=== PATIENT | male | born 2000 | race Caucasian/White ===

== ENCOUNTER 2018-02-01 11:25 | Emergency (ER) | payer OTHER ==
[~2018-02-01] VITALS: Ht 185.4 cm; Wt 140.0 kg
[2018-02-01 12:12] LABS: GLUCOSE,POINT OF CARE 136 MG/DL (70-110)
[2018-02-01 12:51] VITALS: BP 127/63
== END 2018-02-01 13:30 | disposition home or self-care (01) ==
LOC: EMS 11:26
DX: G43.909 Migraine, unspecified, not intractable, without status migrainosus (principal); F41.9 Anxiety disorder, unspecified; F12.90 Cannabis use, unspecified, uncomplicated; R73.9 Hyperglycemia, unspecified
CPT/HCPCS: 82962; 99283

== ENCOUNTER 2018-09-16 18:18 | Emergency (ER) | payer OTHER ==
[~2018-09-16] VITALS: Ht 185.4 cm; Wt 149.6 kg
[2018-09-16] MEDS ORDERED: DIAZEPAM 5 MG TABLET PO ONE (20:45)
[2018-09-16] MEDS ORDERED: KETOROLAC TROMETHAMINE 30 MG/ML VIAL IM ONE (20:45)
[2018-09-16 22:51] VITALS: BP 139/87
== END 2018-09-16 22:54 | disposition home or self-care (01) ==
LOC: EMS 18:19
DX: R25.2 Cramp and spasm (principal)
CPT/HCPCS: 73552; 96372; 99283; J1885

== ENCOUNTER 2019-04-08 19:47 | Inpatient (IN) | payer MEDICAID, OTHER ==
[~2019-04-08] VITALS: Ht 182.9 cm; Wt 129.8 kg
[2019-04-08 20:54] LABS: GLUCOSE,POINT OF CARE 116 MG/DL (70-110)
[2019-04-08] MEDS ORDERED: ACETAMINOPHEN 325 MG TABLET PO ONE (22:15)
[2019-04-08] MEDS ORDERED: SODIUM CHLORIDE 0.9% 1,000 ML IV ONE (22:15)
[2019-04-08 22:23] LABS: HEMATOCRIT 44.2 % (41-53); HEMOGLOBIN 14.9 g/dL (13.5-17.5); MEAN CORPUSCULAR HGB CONC 33.8 G/dL (31.0-37.0); MEAN CORPUSCULAR VOLUME 92 fL (80-100); PLATELET COUNT (AUTO) 437 K/uL (150-450); RED BLOOD CELL COUNT(AUTO) 4.81 MIL/uL (4.50-5.90); RED CELL DISTRIBUTION WIDTH 13.8 % (11.5-14.5)
[2019-04-08] MEDS ORDERED: IOVERSOL 350 MG/ML 100 ML VIAL ONE (22:23)
[2019-04-08] MEDS ORDERED: SODIUM CHLORIDE 0.9% 100 ML ONE (22:24)
[2019-04-08] MEDS ORDERED: IOVERSOL 350 MG/ML 150 ML VIAL ONE (22:24)
[2019-04-08 22:25] LABS: APPEARANCE,URINE CLOUDY (CLEAR); GLUCOSE, URINE (UA) NEGATIVE (NEGATIVE); KETONES,URINE 40 mg/dL (NEGATIVE); LEUKOCYTE ESTERASE ,URINE NEGATIVE (NEGATIVE); NITRATE,URINE NEGATIVE (NEGATIVE); OCCULT BLOOD,URINE LARGE (NEGATIVE); PH,URINE 5.5 (5.0-8.0); PROTEIN,URINE SEE CONFIRM (NEGATIVE)
[2019-04-08 22:28] LABS: BILIRUBIN,URINE PRELIM. POSITIVE (NEGATIVE)
[2019-04-08 22:33] LABS: BACTERIA,URINE Few /HPF (None Seen); RBC,URINE 26-50 /HPF (0-2); SQUAMOUS EPITHELIAL CELL,UR Few /LPF (None Seen); SULFOSALICYLIC ACID,URINE 2+ (Negative); WBC,URINE 0-2 /HPF (0-5)
[2019-04-08 22:35] LABS: ANION GAP 8 mmol/L (8-16); CALCIUM, TOTAL 10.2 mg/dL (8.8-10.5); CARBON DIOXIDE 27 mmol/L (22-29); CHLORIDE 100 mmol/L (98-107); CREATININE 0.96 mg/dL (0.60-1.30); GLOMERULAR FILTR. RATE CALC > 60 mL/min (>60); GLUCOSE,RANDOM 99 mg/dL (70-110); POTASSIUM 3.1 mmol/L (3.5-5.1); SODIUM SERUM 135 mmol/L (136-145); UREA NITROGEN, BLOOD 9 mg/dL (7-18)
[2019-04-08 22:43] LABS: BAND NEUTROPHILS % (MANUAL) 6 % (0-5); LYMPHOCYTES % (MANUAL) 5 % (22-44); MONOCYTES % (MANUAL) 1 % (2-9); REACTIVE LYMPHOCYTES 6 % (0-0); SEGMENTED NEUTROPHILS % 82 % (40-70)
[2019-04-08 22:44] LABS: ALANINE AMINOTRANSFERASE 53 U/L (12-78); ALBUMIN 4.1 g/dL (3.4-5.0); ALKALINE PHOSPHATASE 119 U/L (46-116); ASPARTATE AMINOTRANSFERASE 27 U/L (15-37); BILIRUBIN,TOTAL 3.6 mg/dL (0.1-1.0); LIPASE 51 U/L (73-393); PLATELET MORPHOLOGY COMMENT NORMAL; TOTAL PROTEIN, SERUM 9.3 g/dL (6.4-8.2)
[2019-04-08] MEDS ORDERED: CefTRIAXone 1 GM/DEXTROSE 50 ML IV ONE (22:45)
[2019-04-08] MEDS ORDERED: SODIUM CHLORIDE 0.9% 4,750 ML IV ONE (22:45)
[2019-04-08] MEDS ORDERED: KETOROLAC TROMETHAMINE 30 MG/ML VIAL IVP ONE (23:15)
[2019-04-09] MEDS ORDERED: AZITHROMYCIN 500 MG/NS 250 ML IV ONE (00:45)
[2019-04-09] MEDS ORDERED: ONDANSETRON HCL 4 MG/2 ML VIAL IVP PRN (02:00)
[2019-04-09] MEDS ORDERED: SODIUM CHLORIDE 0.9% 1,000 ML IV ONE (02:00)
[2019-04-09] MEDS ORDERED: 0.9% SODIUM CHLORIDE 10 ML SYRINGE IVP PRN (02:00)
[2019-04-09] MEDS ORDERED: ONDANSETRON HCL 4 MG/2 ML VIAL IVP ONE (04:45)
[2019-04-09 05:21] VITALS: BP 155/75
[2019-04-09] MEDS ORDERED: POTASSIUM CHLORIDE 20 MEQ ER TABLET PO ONE (05:45)
[2019-04-09] MEDS: ACETAMINOPHEN 325 MG TABLET PO PRN ×4 (05:57→23:38)
[2019-04-09 07:38] VITALS: BP 122/61
[2019-04-09 11:27] VITALS: BP 139/73
[2019-04-09 15:19] VITALS: BP 130/68
[2019-04-09] MEDS ORDERED: BISACODYL 10 MG RECTAL RECTAL SUPPOSITORY PR PRN (18:00)
[2019-04-09] MEDS ORDERED: ONDANSETRON HCL 4 MG/2 ML VIAL IM PRN (18:00)
[2019-04-09] MEDS ORDERED: CefTRIAXone 1 GM/DEXTROSE 50 ML IV SCH (18:00)
[2019-04-09] MEDS ORDERED: MAGNESIUM HYDROXIDE SUSPENSION 30 ML UDCUP PO PRN (18:00)
[2019-04-09] MEDS ORDERED: HYDROCODONE/ACETAMINOPHEN 5-325 MG TABLET PO PRN (18:00)
[2019-04-09] MEDS ORDERED: ZOLPIDEM TARTRATE 5 MG TABLET PO PRN (18:00)
[2019-04-09] MEDS ORDERED: MAGNESIUM SULFATE 2 GM/WATER 50 ML IV PRN (18:15)
[2019-04-09] MEDS ORDERED: MAGNESIUM SULFATE 4 GM/WATER 100 ML IV PRN (18:15)
[2019-04-09] MEDS: SODIUM CHLORIDE 0.9% 1,000 ML IV SCH (18:22)
[2019-04-09] MEDS: DOCUSATE SODIUM 100 MG CAPSULE PO SCH (19:21)
[2019-04-09 19:37] VITALS: BP 132/62
[2019-04-09] MEDS: AZITHROMYCIN 500 MG/NS 250 ML IV SCH (19:52)
[2019-04-09] MEDS: ONDANSETRON HCL 4 MG/2 ML VIAL IVP PRN (21:24)
[2019-04-09 23:35] VITALS: BP 130/63
[2019-04-09] MEDS: HEPARIN SODIUM,PORCINE 5,000 UNITS/ML VIAL SQ SCH ×2 (23:38→23:42)
[2019-04-10] MEDS ORDERED: ONDANSETRON HCL 4 MG/2 ML VIAL IVP PRN
[2019-04-10] MEDS: SODIUM CHLORIDE 0.9% 1,000 ML IV SCH ×3 (03:05→18:19)
[2019-04-10] MEDS ORDERED: 0.9% SODIUM CHLORIDE 5 ML NEB SOLUTION NEB ONE ×2 (04:02→23:24)
[2019-04-10] MEDS: ALBUTEROL SULFATE 2.5 MG/0.5 ML NEB SOLUTION NEB PRN ×4 (04:06→23:30)
[2019-04-10] MEDS: IPRATROPIUM BROMIDE 0.5 MG/2.5 ML NEB SOLUTION NEB PRN ×4 (04:07→23:30)
[2019-04-10 04:19] VITALS: BP 157/71
[2019-04-10] MEDS: ACETAMINOPHEN 325 MG TABLET PO PRN ×2 (04:24→11:29)
[2019-04-10 06:00] VITALS: BP 119/66
[2019-04-10 06:38] LABS: BASOPHILS % (AUTO) 0.1 % (0.0-2.0); EOSINOPHILS % (AUTO) 0 % (1.0-6.0); HEMATOCRIT 35.5 % (41-53); HEMOGLOBIN 11.6 g/dL (13.5-17.5); LYMPHOCYTES # (AUTO) 0.8 K/uL (1.0-4.8); LYMPHOCYTES % (AUTO) 5.1 % (22.0-44.0); MEAN CORPUSCULAR HEMOGLOBIN 30.5 pg (26.0-34.0); MEAN CORPUSCULAR HGB CONC 32.6 G/dL (31.0-37.0); MEAN CORPUSCULAR VOLUME 94 fL (80-100); MONOCYTES # (AUTO) 0.4 K/uL (0.1-1.0); MONOCYTES % (AUTO) 2.5 % (2.0-9.0); NEUTROPHILS # (AUTO) 14.7 K/uL (1.8-7.7); PLATELET COUNT (AUTO) 372 K/uL (150-450); RED CELL DISTRIBUTION WIDTH 13.6 % (11.5-14.5)
[2019-04-10 06:50] LABS: NEUTROPHILS % (AUTO) 92.3 % (40.0-70.0)
[2019-04-10 07:02] LABS: ALANINE AMINOTRANSFERASE 31 U/L (12-78); ALBUMIN 2.5 g/dL (3.4-5.0); ALKALINE PHOSPHATASE 83 U/L (46-116); ANION GAP 14 mmol/L (8-16); ASPARTATE AMINOTRANSFERASE 22 U/L (15-37); BILIRUBIN,TOTAL 1.9 mg/dL (0.1-1.0); CALCIUM, TOTAL 8.5 mg/dL (8.8-10.5); CARBON DIOXIDE 24 mmol/L (22-29); CHLORIDE 102 mmol/L (98-107); CREATININE 0.83 mg/dL (0.60-1.30); GLOMERULAR FILTR. RATE CALC > 60 mL/min (>60); GLUCOSE,RANDOM 99 mg/dL (70-110); POTASSIUM 3.1 mmol/L (3.5-5.1); SODIUM SERUM 140 mmol/L (136-145); TOTAL PROTEIN, SERUM 6.7 g/dL (6.4-8.2); UREA NITROGEN, BLOOD 5 mg/dL (7-18)
[2019-04-10 07:57] VITALS: BP 114/59
[2019-04-10] MEDS: HEPARIN SODIUM,PORCINE 5,000 UNITS/ML VIAL SQ SCH ×3 (08:00→23:25)
[2019-04-10] MEDS: DOCUSATE SODIUM 100 MG CAPSULE PO SCH ×2 (08:22→20:30)
[2019-04-10] MEDS: MAGNESIUM OXIDE 400 MG TABLET PO PRN ×3 (08:45→21:56)
[2019-04-10] MEDS: POTASSIUM CHLORIDE 20 MEQ ER TABLET PO PRN ×2 (08:46→14:29)
[2019-04-10] MEDS: MORPHINE SULFATE 2 MG/ML SYRINGE IVP PRN ×2 (10:11→17:28)
[2019-04-10] MEDS: ONDANSETRON HCL 4 MG/2 ML VIAL IVP PRN ×2 (10:18→17:28)
[2019-04-10 12:01] VITALS: BP 135/65
[2019-04-10 15:39] VITALS: BP 141/68
[2019-04-10] MEDS: PIPERACILLIN/TAZO 3.375 GM/D5W 50 ML IV SCH ×2 (18:20→23:24)
[2019-04-10 18:45] LABS: INFLUENZA TYPE A NEGATIVE FOR TYPE A (NEGATIVE); INFLUENZA TYPE B NEGATIVE FOR TYPE B (NEGATIVE)
[2019-04-10] MEDS: AZITHROMYCIN 500 MG/NS 250 ML IV SCH (18:52)
[2019-04-10 19:04] LABS: ABG A-A DIFF O2 329.4 mmHg (10-20.0); ABG BASE EXCESS -0.8 mmol/L (-2.0-3.0); ABG CARBOXYHEMOGLOBIN 0.5 % (0.0-3.0); ABG HCO3 23.8 mmol/L (22.0-26.0); ABG METHEMOGLOBIN 0.3 % (0.0-1.5); ABG OXYGEN CONTENT 16.1 mL/dL (15.0-23.0); ABG OXYGEN SATURATION 89.4 % (95.0-98.0); ABG OXYHEMOGLOBIN 88.7 % (94.0-100.0); ABG PCO2 39 mmHg (35-45); ABG PH 7.405 (7.350-7.450); ABG TOTAL HEMOGLOBIN 12.9 G/dL (12.0-18.0); PO2, ARTERIAL BG 55.7 mmHg (80.0-100.0); SITE, BLOOD GAS RT RADIAL; SOURCE, BLOOD GAS ARTERIAL; TEMPERATURE, FAHRENHEIT, BG 98.5 FAHREN (96.0-98.6)
[2019-04-10 19:05] LABS: O2 DEVICE,BLOOD GAS HI FL CANNULA (ROOM AIR)
[2019-04-10] MEDS ORDERED: IBUPROFEN 600 MG TABLET PO ONE (19:15)
[2019-04-10] MEDS ORDERED: VANCOMYCIN HCL 1.5 GM in DEXTROSE 5%-WATER 250 ML IV ONE (20:00)
[2019-04-10 20:03] VITALS: BP 146/75
[2019-04-10] MEDS: OSELTAMIVIR PHOSPHATE 75 MG CAPSULE PO SCH (21:56)
[2019-04-11] VITALS (10 sets, daily range): BP systolic 112–157; BP diastolic 64–116
[2019-04-11] MEDS: VANCOMYCIN HCL 1.25 GM in DEXTROSE 5%-WATER 250 ML IV SCH ×2 (00:03→06:24)
[2019-04-11] MEDS: SODIUM CHLORIDE 0.9% 1,000 ML IV SCH ×2 (03:24→10:05)
[2019-04-11] MEDS: IPRATROPIUM BROMIDE 0.5 MG/2.5 ML NEB SOLUTION NEB PRN ×2 (04:27→13:00)
[2019-04-11] MEDS: ALBUTEROL SULFATE 2.5 MG/0.5 ML NEB SOLUTION NEB PRN ×2 (04:28→13:00)
[2019-04-11 05:46] LABS: BASOPHILS % (AUTO) 0.1 % (0.0-2.0); EOSINOPHILS % (AUTO) 0.4 % (1.0-6.0); HEMATOCRIT 34.7 % (41-53); HEMOGLOBIN 11.3 g/dL (13.5-17.5); LYMPHOCYTES # (AUTO) 0.8 K/uL (1.0-4.8); LYMPHOCYTES % (AUTO) 5.3 % (22.0-44.0); MEAN CORPUSCULAR HEMOGLOBIN 30.2 pg (26.0-34.0); MEAN CORPUSCULAR HGB CONC 32.6 G/dL (31.0-37.0); MEAN CORPUSCULAR VOLUME 92 fL (80-100); MONOCYTES # (AUTO) 0.3 K/uL (0.1-1.0); MONOCYTES % (AUTO) 2.2 % (2.0-9.0); NEUTROPHILS # (AUTO) 13.1 K/uL (1.8-7.7); PLATELET COUNT (AUTO) 382 K/uL (150-450); RED BLOOD CELL COUNT(AUTO) 3.75 MIL/uL (4.50-5.90); RED CELL DISTRIBUTION WIDTH 13.8 % (11.5-14.5)
[2019-04-11 06:02] LABS: ALANINE AMINOTRANSFERASE 27 U/L (12-78); ALBUMIN 2.3 g/dL (3.4-5.0); ALKALINE PHOSPHATASE 96 U/L (46-116); ANION GAP 9 mmol/L (8-16); ASPARTATE AMINOTRANSFERASE 27 U/L (15-37); BILIRUBIN,TOTAL 1.7 mg/dL (0.1-1.0); CARBON DIOXIDE 27 mmol/L (22-29); CHLORIDE 102 mmol/L (98-107); CREATININE 0.98 mg/dL (0.60-1.30); GLOMERULAR FILTR. RATE CALC > 60 mL/min (>60); GLUCOSE,RANDOM 103 mg/dL (70-110); POTASSIUM 3.1 mmol/L (3.5-5.1); SODIUM SERUM 138 mmol/L (136-145); TOTAL PROTEIN, SERUM 6.8 g/dL (6.4-8.2); UREA NITROGEN, BLOOD 8 mg/dL (7-18)
[2019-04-11] MEDS: ONDANSETRON HCL 4 MG/2 ML VIAL IVP PRN ×3 (06:20→18:15)
[2019-04-11] MEDS: PIPERACILLIN/TAZO 3.375 GM/D5W 50 ML IV SCH ×3 (06:24→19:40)
[2019-04-11] MEDS: POTASSIUM CHL 10 MEQ/WATER 50 ML IV PRN ×3 (06:32→12:18)
[2019-04-11] MEDS ORDERED: SODIUM CHLORIDE 0.9% 100 ML ONE (07:07)
[2019-04-11] MEDS: OSELTAMIVIR PHOSPHATE 75 MG CAPSULE PO SCH ×3 (08:30→21:09)
[2019-04-11] MEDS: HEPARIN SODIUM,PORCINE 5,000 UNITS/ML VIAL SQ SCH ×3 (08:30→17:42)
[2019-04-11] MEDS: ACETAMINOPHEN 325 MG TABLET PO PRN ×3 (08:31→18:30)
[2019-04-11] MEDS: DOCUSATE SODIUM 100 MG CAPSULE PO SCH ×2 (09:00→21:09)
[2019-04-11] MEDS: MORPHINE SULFATE 2 MG/ML SYRINGE IVP PRN ×2 (09:04→12:17)
[2019-04-11] MEDS ORDERED: VANCOMYCIN HCL 1.5 GM in DEXTROSE 5%-WATER 250 ML IV SCH (12:00)
[2019-04-11 12:47] LABS: AMPHET/METH SCREEN,URINE NEGATIVE (NEGATIVE); BARBITURATE SCREEN, URINE NEGATIVE (NEGATIVE); BENZODIAZEPINES SCREEN,URINE NEGATIVE (NEGATIVE); CANNABINOID SCREEN,URINE POSITIVE (NEGATIVE); COCAINE SCREEN,URINE NEGATIVE (NEGATIVE); METHADONE SCREEN, URINE NEGATIVE (NEGATIVE); OPIATE SCREEN,URINE NEGATIVE (NEGATIVE)
[2019-04-11 12:48] LABS: PHENCYCLIDINE SCREEN,URINE NEGATIVE (NEGATIVE)
[2019-04-11 15:30] LABS: ABG A-A DIFF O2 433.1 mmHg (10-20.0); ABG BASE EXCESS 1.3 mmol/L (-2.0-3.0); ABG CARBOXYHEMOGLOBIN 0.3 % (0.0-3.0); ABG HCO3 25.5 mmol/L (22.0-26.0); ABG METHEMOGLOBIN 0.3 % (0.0-1.5); ABG OXYGEN CONTENT 15.3 mL/dL (15.0-23.0); ABG OXYGEN SATURATION 90.1 % (95.0-98.0); ABG OXYHEMOGLOBIN 89.6 % (94.0-100.0); ABG PCO2 40 mmHg (35-45); ABG PH 7.426 (7.350-7.450); ABG TOTAL HEMOGLOBIN 12.1 G/dL (12.0-18.0); PO2, ARTERIAL BG 58.8 mmHg (80.0-100.0); SITE, BLOOD GAS LFT RADIAL; SOURCE, BLOOD GAS ARTERIAL; TEMPERATURE, FAHRENHEIT, BG 98.9 FAHREN (96.0-98.6)
[2019-04-11 15:31] LABS: O2 DEVICE,BLOOD GAS HI FL CANNULA (ROOM AIR)
[2019-04-11] MEDS ORDERED: GuaiFENesin/CODEINE [SUGAR FREE] 200-20MG/10 ML SYRUP UDCUP PO PRN (17:15)
[2019-04-11 17:19] LABS: POTASSIUM 3.8 mmol/L (3.5-5.1)
[2019-04-11] MEDS: AZITHROMYCIN 500 MG/NS 250 ML IV SCH (17:42)
[2019-04-11] MEDS: LORazepam 2 MG/ML VIAL IVP PRN (17:42)
[2019-04-11] MEDS: LINEZOLID 600 MG/ISO-OSM 300 ML IV SCH (17:42)
[2019-04-11] MEDS ORDERED: *CLINICAL-BACTRIM/SEPTRA IVPB DOSING CLINICAL ONE (18:45)
[2019-04-11] MEDS: FLUCONAZOLE 400 MG/NACL ISOOSM 200 ML IV SCH (19:40)
[2019-04-11] MEDS ORDERED: DEXTROSE IV SCH (20:00)
[2019-04-11] MEDS ORDERED: TRIMETH IV SCH (20:00)
[2019-04-11] MEDS ORDERED: WATER IV SCH (20:00)
[2019-04-11] MEDS ORDERED: SULFAMETHOX IV SCH (20:00)
[2019-04-11 21:03] LABS: THYROID STIMULATING HORMONE 1.01 uIU/mL (0.36-3.74)
[2019-04-11] MEDS: TRIMETH IV SCH (21:10)
[2019-04-11] MEDS: WATER IV SCH (21:10)
[2019-04-11] MEDS: SULFAMETHOX IV SCH (21:10)
[2019-04-11] MEDS: DEXTROSE IV SCH (21:10)
[2019-04-12] VITALS (7 sets, daily range): BP systolic 93–140; BP diastolic 56–94
[2019-04-12] MEDS: PIPERACILLIN/TAZO 3.375 GM/D5W 50 ML IV SCH ×4 (00:38→18:15)
[2019-04-12] MEDS: BENZONATATE 100 MG CAPSULE PO SCH ×3 (00:39→16:00)
[2019-04-12] MEDS: HEPARIN SODIUM,PORCINE 5,000 UNITS/ML VIAL SQ SCH ×3 (00:39→16:00)
[2019-04-12] MEDS: ACETAMINOPHEN 325 MG TABLET PO PRN (00:44)
[2019-04-12] MEDS ORDERED: SODIUM CHLORIDE 0.9% 100 ML ONE ×2 (01:46→04:52)
[2019-04-12] MEDS: LINEZOLID 600 MG/ISO-OSM 300 ML IV SCH ×2 (04:51→17:42)
[2019-04-12] MEDS: DEXTROSE IV SCH ×3 (04:51→21:23)
[2019-04-12] MEDS: TRIMETH IV SCH ×3 (04:51→21:23)
[2019-04-12] MEDS: WATER IV SCH ×3 (04:51→21:23)
[2019-04-12] MEDS: SULFAMETHOX IV SCH ×3 (04:51→21:23)
[2019-04-12] MEDS: MethylPREDNISolone SOD SUCC 125 MG/2 ML VIAL IVP SCH ×4 (06:50→18:16)
[2019-04-12 07:21] LABS: CALCIUM, TOTAL 9.1 mg/dL (8.8-10.5); CREATININE 1.81 mg/dL (0.60-1.30); MAGNESIUM 2.2 mg/dL (1.80-2.40); PHOSPHORUS 3.3 mg/dL (2.5-4.9); POTASSIUM 3.4 mmol/L (3.5-5.1)
[2019-04-12 07:49] LABS: BASOPHILS % (AUTO) 0.1 % (0.0-2.0); EOSINOPHILS % (AUTO) 0 % (1.0-6.0); HEMATOCRIT 33.4 % (41-53); HEMOGLOBIN 10.9 g/dL (13.5-17.5); LYMPHOCYTES # (AUTO) 0.2 K/uL (1.0-4.8); LYMPHOCYTES % (AUTO) 1.4 % (22.0-44.0); MEAN CORPUSCULAR HEMOGLOBIN 30.4 pg (26.0-34.0); MEAN CORPUSCULAR HGB CONC 32.7 G/dL (31.0-37.0); MEAN CORPUSCULAR VOLUME 93 fL (80-100); MONOCYTES # (AUTO) 0.1 K/uL (0.1-1.0); MONOCYTES % (AUTO) 0.9 % (2.0-9.0); NEUTROPHILS # (AUTO) 15.2 K/uL (1.8-7.7); PLATELET COUNT (AUTO) 386 K/uL (150-450); RED CELL DISTRIBUTION WIDTH 13.8 % (11.5-14.5)
[2019-04-12 07:55] LABS: NEUTROPHILS % (AUTO) 97.6 % (40.0-70.0)
[2019-04-12] MEDS: OSELTAMIVIR PHOSPHATE 75 MG CAPSULE PO SCH ×2 (08:03→21:22)
[2019-04-12] MEDS: POTASSIUM CHLORIDE 20 MEQ ER TABLET PO PRN ×2 (08:03→08:56)
[2019-04-12] MEDS: DOCUSATE SODIUM 100 MG CAPSULE PO SCH ×2 (08:03→21:22)
[2019-04-12] MEDS: POTASSIUM CHL 10 MEQ/WATER 50 ML IV PRN (08:26)
[2019-04-12 08:51] LABS: ABG A-A DIFF O2 542.2 mmHg (10-20.0); ABG BASE EXCESS 0.8 mmol/L (-2.0-3.0); ABG CARBOXYHEMOGLOBIN 0.5 % (0.0-3.0); ABG HCO3 24.8 mmol/L (22.0-26.0); ABG METHEMOGLOBIN 0.3 % (0.0-1.5); ABG OXYGEN CONTENT 15.3 mL/dL (15.0-23.0); ABG OXYHEMOGLOBIN 87.3 % (94.0-100.0); ABG PCO2 43 mmHg (35-45); ABG PH 7.392 (7.350-7.450); ABG TOTAL HEMOGLOBIN 12.5 G/dL (12.0-18.0); PO2, ARTERIAL BG 55.2 mmHg (80.0-100.0); SOURCE, BLOOD GAS ARTERIAL; TEMPERATURE, FAHRENHEIT, BG 98.6 FAHREN (96.0-98.6)
[2019-04-12 08:52] LABS: O2 DEVICE,BLOOD GAS HI FL CANNULA (ROOM AIR); SITE, BLOOD GAS RT RADIAL
[2019-04-12] MEDS: LORazepam 2 MG/ML VIAL IVP PRN ×2 (11:57→18:14)
[2019-04-12] MEDS: ALBUTEROL SULFATE 2.5 MG/0.5 ML NEB SOLUTION NEB PRN (14:39)
[2019-04-12] MEDS: IPRATROPIUM BROMIDE 0.5 MG/2.5 ML NEB SOLUTION NEB PRN (14:39)
[2019-04-12] MEDS ORDERED: RAPID SEQUENCE KIT [RSI] 1 EACH KIT ONE (15:12)
[2019-04-12] MEDS ORDERED: VECURONIUM BROMIDE 10 MG/VIAL IVP ONE (15:15)
[2019-04-12] MEDS ORDERED: ETOMIDATE 2 MG/ML 10 ML VIAL IVP ONE (15:15)
[2019-04-12] MEDS ORDERED: PROPOFOL 1000 MG/ISO-OSM 100 ML IV ONE (15:28)
[2019-04-12] MEDS: PROPOFOL 1000 MG/ISO-OSM 100 ML IV PRN ×3 (16:04→22:28)
[2019-04-12] MEDS ORDERED: SODIUM CHLORIDE 0.9% 500 ML IV ONE ×2 (16:31)
[2019-04-12 17:26] LABS: ABG A-A DIFF O2 589.4 mmHg (10-20.0); ABG BASE EXCESS -1.1 mmol/L (-2.0-3.0); ABG CARBOXYHEMOGLOBIN 0.1 % (0.0-3.0); ABG HCO3 23.9 mmol/L (22.0-26.0); ABG METHEMOGLOBIN 0.3 % (0.0-1.5); ABG OXYGEN CONTENT 16.5 mL/dL (15.0-23.0); ABG OXYGEN SATURATION 96.7 % (95.0-98.0); ABG OXYHEMOGLOBIN 96.3 % (94.0-100.0); ABG PCO2 35 mmHg (35-45); ABG PH 7.435 (7.350-7.450); ABG TOTAL HEMOGLOBIN 12.1 G/dL (12.0-18.0); PO2, ARTERIAL BG 88.3 mmHg (80.0-100.0); SOURCE, BLOOD GAS ARTERIAL; TEMPERATURE, FAHRENHEIT, BG 98.6 FAHREN (96.0-98.6)
[2019-04-12 17:29] LABS: SITE, BLOOD GAS RT RADIAL
[2019-04-12 17:30] LABS: O2 DEVICE,BLOOD GAS VENTILATOR (ROOM AIR); VENT MODE, BG Press. Control Vent (ROOM AIR)
[2019-04-12 17:31] LABS: PEEP,BG 10 cm H2O; SPONTANEOUS VT, BG 635 ml
[2019-04-12] MEDS: AZITHROMYCIN 500 MG/NS 250 ML IV SCH (17:43)
[2019-04-12] MEDS: FLUCONAZOLE 400 MG/NACL ISOOSM 200 ML IV SCH (18:15)
[2019-04-12] MEDS: FentaNYL CITRATE PF 500 MCG in DEXTROSE 5%-WATER 90 ML IV PRN (18:36)
[2019-04-13] VITALS (7 sets, daily range): BP systolic 94–104; BP diastolic 37–48
[2019-04-13] MEDS: HEPARIN SODIUM,PORCINE 5,000 UNITS/ML VIAL SQ SCH ×3 (00:34→15:37)
[2019-04-13] MEDS: MethylPREDNISolone SOD SUCC 125 MG/2 ML VIAL IVP SCH ×4 (00:34→17:54)
[2019-04-13] MEDS: PIPERACILLIN/TAZO 3.375 GM/D5W 50 ML IV SCH ×4 (00:35→17:54)
[2019-04-13] MEDS: PROPOFOL 1000 MG/ISO-OSM 100 ML IV PRN ×7 (02:00→20:05)
[2019-04-13 05:14] LABS: BASOPHILS % (AUTO) 0.2 % (0.0-2.0); EOSINOPHILS % (AUTO) 0 % (1.0-6.0); HEMATOCRIT 28.9 % (41-53); HEMOGLOBIN 9.6 g/dL (13.5-17.5); LYMPHOCYTES # (AUTO) 0.6 K/uL (1.0-4.8); LYMPHOCYTES % (AUTO) 4.1 % (22.0-44.0); MEAN CORPUSCULAR HEMOGLOBIN 30.5 pg (26.0-34.0); MEAN CORPUSCULAR HGB CONC 33.3 G/dL (31.0-37.0); MEAN CORPUSCULAR VOLUME 92 fL (80-100); MONOCYTES # (AUTO) 0.4 K/uL (0.1-1.0); MONOCYTES % (AUTO) 2.9 % (2.0-9.0); NEUTROPHILS # (AUTO) 12.7 K/uL (1.8-7.7); PLATELET COUNT (AUTO) 388 K/uL (150-450); RED BLOOD CELL COUNT(AUTO) 3.15 MIL/uL (4.50-5.90); RED CELL DISTRIBUTION WIDTH 13.7 % (11.5-14.5)
[2019-04-13 05:16] LABS: NEUTROPHILS % (AUTO) 92.8 % (40.0-70.0)
[2019-04-13 05:28] LABS: CALCIUM, TOTAL 8.5 mg/dL (8.8-10.5); CREATININE 2.25 mg/dL (0.60-1.30); POTASSIUM 3.4 mmol/L (3.5-5.1)
[2019-04-13 05:31] LABS: HIV 1-2 SCREEN 4TH GEN W/RFLX Non Reactive (Non Reactive)
[2019-04-13] MEDS: DEXTROSE IV SCH ×3 (05:34→21:03)
[2019-04-13] MEDS: LINEZOLID 600 MG/ISO-OSM 300 ML IV SCH (05:34)
[2019-04-13] MEDS: TRIMETH IV SCH ×3 (05:34→21:03)
[2019-04-13] MEDS: SULFAMETHOX IV SCH ×3 (05:34→21:03)
[2019-04-13] MEDS: WATER IV SCH ×3 (05:34→21:03)
[2019-04-13] MEDS: OSELTAMIVIR PHOSPHATE 75 MG CAPSULE PO SCH (08:38)
[2019-04-13] MEDS: DOCUSATE SODIUM 100 MG CAPSULE PO SCH ×2 (08:38→21:01)
[2019-04-13] MEDS: BENZONATATE 100 MG CAPSULE PO SCH ×3 (08:38→15:37)
[2019-04-13] MEDS ORDERED: SODIUM CHLORIDE 0.9% 250 ML IV ONE (10:12)
[2019-04-13 10:55] LABS: ABG A-A DIFF O2 400.7 mmHg (10-20.0); ABG CARBOXYHEMOGLOBIN 0.3 % (0.0-3.0); ABG HCO3 24.3 mmol/L (22.0-26.0); ABG METHEMOGLOBIN 0.3 % (0.0-1.5); ABG OXYGEN CONTENT 13.5 mL/dL (15.0-23.0); ABG OXYGEN SATURATION 94.3 % (95.0-98.0); ABG OXYHEMOGLOBIN 93.7 % (94.0-100.0); ABG PCO2 27 mmHg (35-45); ABG PH 7.529 (7.350-7.450); ABG TOTAL HEMOGLOBIN 10.2 G/dL (12.0-18.0); PO2, ARTERIAL BG 70.2 mmHg (80.0-100.0); SOURCE, BLOOD GAS ARTERIAL; TEMPERATURE, FAHRENHEIT, BG 98.1 FAHREN (96.0-98.6)
[2019-04-13 10:56] LABS: INSPIRATORY TIME, BG 1 SEC; O2 DEVICE,BLOOD GAS VENTILATOR (ROOM AIR); PEEP,BG 10 cm H2O; SITE, BLOOD GAS RT RADIAL; SPONTANEOUS VT, BG 650 ml; VENT MODE, BG Press. Control Vent (ROOM AIR)
[2019-04-13] MEDS: FentaNYL CITRATE PF 500 MCG in DEXTROSE 5%-WATER 90 ML IV PRN ×2 (13:19→19:32)
[2019-04-13 14:19] LABS: ABG A-A DIFF O2 402.4 mmHg (10-20.0); ABG BASE EXCESS -1.8 mmol/L (-2.0-3.0); ABG CARBOXYHEMOGLOBIN 0.3 % (0.0-3.0); ABG HCO3 23.7 mmol/L (22.0-26.0); ABG METHEMOGLOBIN 0.3 % (0.0-1.5); ABG OXYGEN CONTENT 13.4 mL/dL (15.0-23.0); ABG OXYGEN SATURATION 92.9 % (95.0-98.0); ABG OXYHEMOGLOBIN 92.3 % (94.0-100.0); ABG PCO2 26 mmHg (35-45); ABG PH 7.521 (7.350-7.450); ABG TOTAL HEMOGLOBIN 10.3 G/dL (12.0-18.0); SOURCE, BLOOD GAS ARTERIAL
[2019-04-13 14:22] LABS: INSPIRATORY TIME, BG 1 SEC; O2 DEVICE,BLOOD GAS VENTILATOR (ROOM AIR); PEEP,BG 10 cm H2O; SITE, BLOOD GAS RT RADIAL; SPONTANEOUS VT, BG 800 ml; VENT MODE, BG Press. Control Vent (ROOM AIR)
[2019-04-13] MEDS: FLUCONAZOLE 400 MG/NACL ISOOSM 200 ML IV SCH (15:37)
[2019-04-13] MEDS ORDERED: ETOMIDATE 2 MG/ML 10 ML VIAL IV ONE ×2 (16:14→16:15)
[2019-04-13] MEDS ORDERED: VECURONIUM BROMIDE 10 MG/VIAL IV ONE ×2 (16:14→16:15)
[2019-04-13 16:22] LABS: ABG A-A DIFF O2 449.7 mmHg (10-20.0); ABG BASE EXCESS -2.9 mmol/L (-2.0-3.0); ABG CARBOXYHEMOGLOBIN 0.2 % (0.0-3.0); ABG HCO3 22.3 mmol/L (22.0-26.0); ABG METHEMOGLOBIN 0.3 % (0.0-1.5); ABG OXYGEN SATURATION 94.2 % (95.0-98.0); ABG OXYHEMOGLOBIN 93.7 % (94.0-100.0); ABG PCO2 38 mmHg (35-45); ABG PH 7.382 (7.350-7.450); ABG TOTAL HEMOGLOBIN 13.6 G/dL (12.0-18.0); O2 DEVICE,BLOOD GAS VENTILATOR (ROOM AIR); PEEP,BG 10 cm H2O; PO2, ARTERIAL BG 80.9 mmHg (80.0-100.0); SITE, BLOOD GAS RT RADIAL; SOURCE, BLOOD GAS ARTERIAL; TEMPERATURE, FAHRENHEIT, BG 98.5 FAHREN (96.0-98.6); VT, ABG 460 ml
[2019-04-13 17:26] LABS: CALCIUM, TOTAL 8.4 mg/dL (8.8-10.5); CREATININE 2.27 mg/dL (0.60-1.30); POTASSIUM 3.5 mmol/L (3.5-5.1)
[2019-04-13 17:30] LABS: MAGNESIUM 2.8 mg/dL (1.80-2.40); PHOSPHORUS 5.7 mg/dL (2.5-4.9)
[2019-04-13] MEDS: AZITHROMYCIN 500 MG/NS 250 ML IV SCH (17:54)
[2019-04-13 18:07] LABS: APPEARANCE,URINE CLEAR (CLEAR); BILIRUBIN,URINE NEGATIVE (NEGATIVE); GLUCOSE, URINE (UA) NEGATIVE (NEGATIVE); KETONES,URINE NEGATIVE (NEGATIVE); LEUKOCYTE ESTERASE ,URINE NEGATIVE (NEGATIVE); NITRATE,URINE NEGATIVE (NEGATIVE); OCCULT BLOOD,URINE NEGATIVE (NEGATIVE); PH,URINE 5.5 (5.0-8.0); PROTEIN,URINE NEGATIVE (NEGATIVE); UROBILINOGEN,URINE 0.2 mg/dL (<=1.0)
[2019-04-13 18:14] LABS: CREATININE,URINE RANDOM 72.3 mg/dL (30.0-125.0)
[2019-04-13 18:23] LABS: BACTERIA,URINE None Seen /HPF (None Seen); RBC,URINE None Seen /HPF (0-2); SQUAMOUS EPITHELIAL CELL,UR Rare /LPF (None Seen); WBC,URINE None Seen /HPF (0-5)
[2019-04-13] MEDS: OSELTAMIVIR PHOSPHATE 30 MG CAPSULE PO SCH (21:02)
[2019-04-13] MEDS ORDERED: CISATRACURIUM BESYLATE 20 MG in DEXTROSE 5%-WATER 90 ML IV PRN (22:32)
[2019-04-13] MEDS ORDERED: SODIUM CHLORIDE 0.9% 500 ML IV ONE (23:11)
[2019-04-14] VITALS: BP 106/60
[2019-04-14] MEDS: PROPOFOL 1000 MG/ISO-OSM 100 ML IV PRN ×13 (00:01→23:18)
[2019-04-14] MEDS: PIPERACILLIN/TAZO 3.375 GM/D5W 50 ML IV SCH ×5 (00:10→23:17)
[2019-04-14] MEDS: MethylPREDNISolone SOD SUCC 125 MG/2 ML VIAL IVP SCH ×5 (00:10→23:17)
[2019-04-14] MEDS ORDERED: WATER IV PRN ×2 (00:30)
[2019-04-14] MEDS ORDERED: DEXTROSE 5% IV PRN ×2 (00:30)
[2019-04-14] MEDS ORDERED: CISATRACURIUM BESYLATE IV PRN ×2 (00:30)
[2019-04-14] MEDS: FentaNYL CITRATE PF 500 MCG in DEXTROSE 5%-WATER 90 ML IV PRN ×5 (01:00→20:05)
[2019-04-14] MEDS: CISATRACURIUM BESYLATE 20 MG in DEXTROSE 5%-WATER 98 ML IV PRN ×8 (01:25→08:47)
[2019-04-14] MEDS: BENZONATATE 100 MG CAPSULE PO SCH ×5 (01:26→23:17)
[2019-04-14] MEDS ORDERED: SODIUM CHLORIDE 0.9% 250 ML IV ONE ×2 (03:03)
[2019-04-14 04:00] VITALS: BP 98/37
[2019-04-14] MEDS: DEXTROSE IV SCH ×3 (05:13→21:35)
[2019-04-14] MEDS: WATER IV SCH ×3 (05:13→21:35)
[2019-04-14] MEDS: SULFAMETHOX IV SCH ×3 (05:13→21:35)
[2019-04-14] MEDS: TRIMETH IV SCH ×3 (05:13→21:35)
[2019-04-14 05:58] LABS: BASOPHILS % (AUTO) 0.1 % (0.0-2.0); EOSINOPHILS % (AUTO) 0.1 % (1.0-6.0); HEMATOCRIT 32.6 % (41-53); HEMOGLOBIN 10.5 g/dL (13.5-17.5); LYMPHOCYTES # (AUTO) 0.7 K/uL (1.0-4.8); LYMPHOCYTES % (AUTO) 4.6 % (22.0-44.0); MEAN CORPUSCULAR HGB CONC 32.3 G/dL (31.0-37.0); MEAN CORPUSCULAR VOLUME 93 fL (80-100); MONOCYTES % (AUTO) 6.2 % (2.0-9.0); NEUTROPHILS # (AUTO) 14.1 K/uL (1.8-7.7); RED BLOOD CELL COUNT(AUTO) 3.51 MIL/uL (4.50-5.90); RED CELL DISTRIBUTION WIDTH 14.3 % (11.5-14.5)
[2019-04-14 06:30] LABS: ALBUMIN 2.2 g/dL (3.4-5.0); BILIRUBIN,TOTAL 0.4 mg/dL (0.1-1.0); CALCIUM, TOTAL 7.9 mg/dL (8.8-10.5); CREATININE 2.01 mg/dL (0.60-1.30); MAGNESIUM 3.1 mg/dL (1.80-2.40); PHOSPHORUS 6.2 mg/dL (2.5-4.9); POTASSIUM 4.1 mmol/L (3.5-5.1); TOTAL PROTEIN, SERUM 6.3 g/dL (6.4-8.2)
[2019-04-14 07:30] LABS: PLATELET COUNT (AUTO) 482 K/uL (150-450)
[2019-04-14] MEDS: WATER IV PRN ×9 (07:50→23:18)
[2019-04-14] MEDS: CISATRACURIUM BESYLATE IV PRN ×9 (07:50→23:18)
[2019-04-14] MEDS: DEXTROSE 5% IV PRN ×9 (07:50→23:18)
[2019-04-14 08:00] VITALS: BP 110/53
[2019-04-14] MEDS: OSELTAMIVIR PHOSPHATE 30 MG CAPSULE PO SCH ×2 (08:41→20:05)
[2019-04-14] MEDS: DOCUSATE SODIUM 100 MG CAPSULE PO SCH ×2 (08:41→20:05)
[2019-04-14] MEDS: HEPARIN SODIUM,PORCINE 5,000 UNITS/ML VIAL SQ SCH ×4 (08:45→23:17)
[2019-04-14] MEDS ORDERED: SODIUM CHLORIDE 0.9% 500 ML IV ONE ×2 (09:47→09:49)
[2019-04-14 12:00] VITALS: BP 110/68
[2019-04-14 12:15] LABS: LEGIONELLA PNEUMO AG URINE Negative (Negative); ORGANISM ID Not indicated.; S PNEUMO SOURCE Urine; STREP PNEUMONIAE AG URINE Negative (Negative); STREP.PNEUMO BODY FLUID CULT. Not Indicated
[2019-04-14 15:28] LABS: ABG A-A DIFF O2 264.4 mmHg (10-20.0); ABG BASE EXCESS -2.6 mmol/L (-2.0-3.0); ABG CARBOXYHEMOGLOBIN 0.3 % (0.0-3.0); ABG HCO3 22.2 mmol/L (22.0-26.0); ABG METHEMOGLOBIN 0.9 % (0.0-1.5); ABG OXYGEN CONTENT 17.4 mL/dL (15.0-23.0); ABG OXYGEN SATURATION 99.7 % (95.0-98.0); ABG OXYHEMOGLOBIN 98.5 % (94.0-100.0); ABG PCO2 48 mmHg (35-45); ABG TOTAL HEMOGLOBIN 11.8 G/dL (12.0-18.0); PO2, ARTERIAL BG 401.5 mmHg (80.0-100.0); SOURCE, BLOOD GAS ARTERIAL; TEMPERATURE, FAHRENHEIT, BG 97.8 FAHREN (96.0-98.6)
[2019-04-14 15:29] LABS: O2 DEVICE,BLOOD GAS VENTILATOR (ROOM AIR); PEEP,BG 10 cm H2O; SITE, BLOOD GAS ARTERIAL LINE; VT, ABG 460 ml
[2019-04-14] MEDS: FLUCONAZOLE 400 MG/NACL ISOOSM 200 ML IV SCH (15:32)
[2019-04-14 16:00] VITALS: BP 137/64
[2019-04-14 16:36] LABS: QUANTIFERON+, Nil Value 0.02 IU/mL; QUANTIFERON+,Mitogen Value 0.02 IU/mL; QUANTIFERON+,TB1 Antigen Value 0.03 IU/mL; QUANTIFERON, TB GOLD PLUS Indeterminate (Negative)
[2019-04-14] MEDS: AZITHROMYCIN 500 MG/NS 250 ML IV SCH (17:37)
[2019-04-14 20:00] VITALS: BP 119/53
[2019-04-15] VITALS: BP 138/65
[2019-04-15] MEDS ORDERED: SODIUM CHLORIDE 0.9% 250 ML IV ONE ×2 (01:05→13:13)
[2019-04-15] MEDS ORDERED: SODIUM CHLORIDE 0.9% 500 ML IV ONE (01:05)
[2019-04-15] MEDS: FentaNYL CITRATE PF 500 MCG in DEXTROSE 5%-WATER 90 ML IV PRN ×6 (01:07→22:45)
[2019-04-15] MEDS: WATER IV PRN ×10 (01:52→23:52)
[2019-04-15] MEDS: PROPOFOL 1000 MG/ISO-OSM 100 ML IV PRN ×11 (01:52→22:36)
[2019-04-15] MEDS: CISATRACURIUM BESYLATE IV PRN ×10 (01:52→23:52)
[2019-04-15] MEDS: DEXTROSE 5% IV PRN ×10 (01:52→23:52)
[2019-04-15 04:00] VITALS: BP 119/50
[2019-04-15 05:08] LABS: BASOPHILS % (AUTO) 0.1 % (0.0-2.0); EOSINOPHILS % (AUTO) 0 % (1.0-6.0); HEMATOCRIT 25.8 % (41-53); HEMOGLOBIN 8.6 g/dL (13.5-17.5); LYMPHOCYTES # (AUTO) 0.4 K/uL (1.0-4.8); LYMPHOCYTES % (AUTO) 4.7 % (22.0-44.0); MEAN CORPUSCULAR HGB CONC 33.5 G/dL (31.0-37.0); MEAN CORPUSCULAR VOLUME 93 fL (80-100); MONOCYTES # (AUTO) 0.6 K/uL (0.1-1.0); MONOCYTES % (AUTO) 6.3 % (2.0-9.0); NEUTROPHILS # (AUTO) 8.2 K/uL (1.8-7.7); PLATELET COUNT (AUTO) 401 K/uL (150-450); RED BLOOD CELL COUNT(AUTO) 2.78 MIL/uL (4.50-5.90); RED CELL DISTRIBUTION WIDTH 14.2 % (11.5-14.5)
[2019-04-15 05:09] LABS: NEUTROPHILS % (AUTO) 88.9 % (40.0-70.0)
[2019-04-15] MEDS: TRIMETH IV SCH ×3 (05:18→21:07)
[2019-04-15] MEDS: PIPERACILLIN/TAZO 3.375 GM/D5W 50 ML IV SCH ×4 (05:18→23:23)
[2019-04-15] MEDS: SULFAMETHOX IV SCH ×3 (05:18→21:07)
[2019-04-15] MEDS: WATER IV SCH ×3 (05:18→21:07)
[2019-04-15] MEDS: DEXTROSE IV SCH ×3 (05:18→21:07)
[2019-04-15 05:23] LABS: INR 1.1 (0.9-1.1); PROTHROMBIN TIME 11.5 SEC (9.4-11.6)
[2019-04-15 05:27] LABS: ALBUMIN 1.7 g/dL (3.4-5.0); BILIRUBIN,TOTAL 0.3 mg/dL (0.1-1.0); CALCIUM, TOTAL 7.8 mg/dL (8.8-10.5); CREATININE 1.81 mg/dL (0.60-1.30); MAGNESIUM 2.6 mg/dL (1.80-2.40); POTASSIUM 4.7 mmol/L (3.5-5.1); TOTAL PROTEIN, SERUM 5.7 g/dL (6.4-8.2)
[2019-04-15] MEDS: MethylPREDNISolone SOD SUCC 125 MG/2 ML VIAL IVP SCH ×4 (05:38→23:24)
[2019-04-15 08:00] VITALS: BP 134/46
[2019-04-15] MEDS: BENZONATATE 100 MG CAPSULE PO SCH ×3 (08:00→23:22)
[2019-04-15 08:26] LABS: ABG A-A DIFF O2 142.6 mmHg (10-20.0); ABG BASE EXCESS -0.1 mmol/L (-2.0-3.0); ABG CARBOXYHEMOGLOBIN 0.3 % (0.0-3.0); ABG HCO3 24.3 mmol/L (22.0-26.0); ABG METHEMOGLOBIN 0.4 % (0.0-1.5); ABG OXYGEN SATURATION 98.9 % (95.0-98.0); ABG OXYHEMOGLOBIN 98.2 % (94.0-100.0); ABG PCO2 48 mmHg (35-45); ABG PH 7.344 (7.350-7.450); ABG TOTAL HEMOGLOBIN 9.9 G/dL (12.0-18.0); O2 DEVICE,BLOOD GAS VENTILATOR (ROOM AIR); PO2, ARTERIAL BG 159.7 mmHg (80.0-100.0); SITE, BLOOD GAS ARTERIAL LINE; SOURCE, BLOOD GAS ARTERIAL; TEMPERATURE, FAHRENHEIT, BG 98.6 FAHREN (96.0-98.6)
[2019-04-15 08:27] LABS: PEEP,BG 10 cm H2O; VT, ABG 460 ml
[2019-04-15] MEDS: OSELTAMIVIR PHOSPHATE 30 MG CAPSULE PO SCH (09:00)
[2019-04-15] MEDS: DOCUSATE SODIUM 100 MG CAPSULE PO SCH ×2 (09:00→20:24)
[2019-04-15] MEDS: HEPARIN SODIUM,PORCINE 5,000 UNITS/ML VIAL SQ SCH ×3 (09:01→23:32)
[2019-04-15 12:00] VITALS: BP 101/37
[2019-04-15 16:00] VITALS: BP 146/66
[2019-04-15] MEDS: PANTOPRAZOLE SODIUM 80 MG in SODIUM CHLORIDE 0.9% 100 ML IV SCH ×2 (16:01→23:51)
[2019-04-15] MEDS: AZITHROMYCIN 500 MG/NS 250 ML IV SCH (17:15)
[2019-04-15] MEDS: FLUCONAZOLE 400 MG/NACL ISOOSM 200 ML IV SCH (18:19)
[2019-04-15] MEDS ORDERED: DEXTROSE 5%-WATER 250 ML IV ONE ×2 (19:23→22:53)
[2019-04-15 20:00] VITALS: BP 145/50
[2019-04-15] MEDS: ALBUTEROL SULFATE 2.5 MG/0.5 ML NEB SOLUTION NEB SCH ×2 (20:17→22:15)
[2019-04-15] MEDS: IPRATROPIUM BROMIDE 0.5 MG/2.5 ML NEB SOLUTION NEB SCH ×2 (20:17→22:15)
[2019-04-15] MEDS ORDERED: PNEUMOCOCCAL VACCINE POLYVALENT 0.5 ML VIAL [PPSV23] IM ONE (23:45)
[2019-04-16] VITALS: BP 156/60
[2019-04-16] MEDS: PROPOFOL 1000 MG/ISO-OSM 100 ML IV PRN ×11 (00:43→23:29)
[2019-04-16] MEDS: ALBUTEROL SULFATE 2.5 MG/0.5 ML NEB SOLUTION NEB SCH ×8 (00:55→22:32)
[2019-04-16] MEDS: IPRATROPIUM BROMIDE 0.5 MG/2.5 ML NEB SOLUTION NEB SCH ×8 (00:55→22:32)
[2019-04-16] MEDS: FentaNYL CITRATE PF 500 MCG in DEXTROSE 5%-WATER 90 ML IV PRN ×9 (01:50→22:34)
[2019-04-16] MEDS: CISATRACURIUM BESYLATE IV PRN ×8 (02:57→22:17)
[2019-04-16] MEDS: DEXTROSE 5% IV PRN ×8 (02:57→22:17)
[2019-04-16] MEDS: WATER IV PRN ×8 (02:57→22:17)
[2019-04-16] MEDS ORDERED: SODIUM CHLORIDE 0.9% 250 ML IV ONE (02:58)
[2019-04-16 04:00] VITALS: BP 132/79
[2019-04-16 05:05] LABS: EOSINOPHILS % (AUTO) 0 % (1.0-6.0); HEMATOCRIT 30.4 % (41-53); LYMPHOCYTES # (AUTO) 0.4 K/uL (1.0-4.8); LYMPHOCYTES % (AUTO) 3.7 % (22.0-44.0); MEAN CORPUSCULAR HEMOGLOBIN 30.6 pg (26.0-34.0); MEAN CORPUSCULAR VOLUME 93 fL (80-100); MONOCYTES # (AUTO) 0.7 K/uL (0.1-1.0); MONOCYTES % (AUTO) 6.8 % (2.0-9.0); NEUTROPHILS # (AUTO) 9.6 K/uL (1.8-7.7); PLATELET COUNT (AUTO) 456 K/uL (150-450); RED BLOOD CELL COUNT(AUTO) 3.28 MIL/uL (4.50-5.90); RED CELL DISTRIBUTION WIDTH 13.9 % (11.5-14.5)
[2019-04-16] MEDS: PIPERACILLIN/TAZO 3.375 GM/D5W 50 ML IV SCH ×4 (05:05→23:24)
[2019-04-16] MEDS: MethylPREDNISolone SOD SUCC 125 MG/2 ML VIAL IVP SCH ×4 (05:05→23:24)
[2019-04-16 05:06] LABS: NEUTROPHILS % (AUTO) 89.5 % (40.0-70.0)
[2019-04-16] MEDS: WATER IV SCH ×3 (05:07→20:32)
[2019-04-16] MEDS: SULFAMETHOX IV SCH ×3 (05:07→20:32)
[2019-04-16] MEDS: TRIMETH IV SCH ×3 (05:07→20:32)
[2019-04-16] MEDS: DEXTROSE IV SCH ×3 (05:07→20:32)
[2019-04-16 05:16] LABS: ALBUMIN 2.1 g/dL (3.4-5.0); CALCIUM, TOTAL 8.4 mg/dL (8.8-10.5); CREATININE 1.59 mg/dL (0.60-1.30); MAGNESIUM 2.8 mg/dL (1.80-2.40); PHOSPHORUS 4.2 mg/dL (2.5-4.9); POTASSIUM 5.1 mmol/L (3.5-5.1)
[2019-04-16 08:00] VITALS: BP 115/44
[2019-04-16] MEDS: BENZONATATE 100 MG CAPSULE PO SCH ×3 (08:00→22:48)
[2019-04-16] MEDS: HEPARIN SODIUM,PORCINE 5,000 UNITS/ML VIAL SQ SCH ×3 (08:47→23:37)
[2019-04-16] MEDS: DOCUSATE SODIUM 100 MG CAPSULE PO SCH ×2 (09:00→20:11)
[2019-04-16] MEDS: PANTOPRAZOLE SODIUM 80 MG in SODIUM CHLORIDE 0.9% 100 ML IV SCH ×2 (10:15→19:23)
[2019-04-16 11:34] LABS: ABG A-A DIFF O2 282.9 mmHg (10-20.0); ABG BASE EXCESS -1.9 mmol/L (-2.0-3.0); ABG CARBOXYHEMOGLOBIN 0.3 % (0.0-3.0); ABG HCO3 22.5 mmol/L (22.0-26.0); ABG METHEMOGLOBIN 0.6 % (0.0-1.5); ABG OXYGEN CONTENT 15.8 mL/dL (15.0-23.0); ABG OXYGEN SATURATION 96.1 % (95.0-98.0); ABG OXYHEMOGLOBIN 95.2 % (94.0-100.0); ABG PCO2 49 mmHg (35-45); ABG PH 7.311 (7.350-7.450); ABG TOTAL HEMOGLOBIN 11.7 G/dL (12.0-18.0); O2 DEVICE,BLOOD GAS VENTILATOR (ROOM AIR); PO2, ARTERIAL BG 92.1 mmHg (80.0-100.0); SITE, BLOOD GAS ARTERIAL LINE; SOURCE, BLOOD GAS ARTERIAL; VT, ABG 460 ml
[2019-04-16 11:35] LABS: PEEP,BG 8 cm H2O; SPONTANEOUS VT, BG 434 ml
[2019-04-16 12:00] VITALS: BP 144/54
[2019-04-16] MEDS: AZITHROMYCIN 500 MG/NS 250 ML IV SCH (15:25)
[2019-04-16 16:00] VITALS: BP 136/51
[2019-04-16] MEDS ORDERED: DEXTROSE 5%-WATER 250 ML IV ONE ×2 (17:16→22:44)
[2019-04-16] MEDS: FLUCONAZOLE 400 MG/NACL ISOOSM 200 ML IV SCH (18:02)
[2019-04-16 20:00] VITALS: BP 149/74
[2019-04-17] VITALS: BP 146/80
[2019-04-17] MEDS: WATER IV PRN ×6 (00:18→08:39)
[2019-04-17] MEDS: DEXTROSE 5% IV PRN ×6 (00:18→08:39)
[2019-04-17] MEDS: CISATRACURIUM BESYLATE IV PRN ×6 (00:18→08:39)
[2019-04-17] MEDS: PROPOFOL 1000 MG/ISO-OSM 100 ML IV PRN ×11 (01:12→22:43)
[2019-04-17] MEDS: FentaNYL CITRATE PF 500 MCG in DEXTROSE 5%-WATER 90 ML IV PRN ×9 (01:31→22:00)
[2019-04-17] MEDS: ALBUTEROL SULFATE 2.5 MG/0.5 ML NEB SOLUTION NEB SCH ×8 (02:10→22:22)
[2019-04-17] MEDS: IPRATROPIUM BROMIDE 0.5 MG/2.5 ML NEB SOLUTION NEB SCH ×8 (02:10→22:22)
[2019-04-17] MEDS ORDERED: SODIUM CHLORIDE 0.9% 500 ML IV ONE (02:56)
[2019-04-17 04:00] VITALS: BP 146/66
[2019-04-17] MEDS: SULFAMETHOX IV SCH ×3 (04:56→21:17)
[2019-04-17] MEDS: DEXTROSE IV SCH ×3 (04:56→21:17)
[2019-04-17] MEDS: TRIMETH IV SCH ×3 (04:56→21:17)
[2019-04-17] MEDS: WATER IV SCH ×3 (04:56→21:17)
[2019-04-17] MEDS: PANTOPRAZOLE SODIUM 80 MG in SODIUM CHLORIDE 0.9% 100 ML IV SCH ×2 (04:56→16:08)
[2019-04-17 04:57] LABS: BASOPHILS % (AUTO) 0.1 % (0.0-2.0); EOSINOPHILS % (AUTO) 0 % (1.0-6.0); HEMATOCRIT 29.9 % (41-53); LYMPHOCYTES # (AUTO) 0.3 K/uL (1.0-4.8); LYMPHOCYTES % (AUTO) 3.1 % (22.0-44.0); MEAN CORPUSCULAR HEMOGLOBIN 30.9 pg (26.0-34.0); MEAN CORPUSCULAR HGB CONC 33.6 G/dL (31.0-37.0); MEAN CORPUSCULAR VOLUME 92 fL (80-100); MONOCYTES # (AUTO) 0.9 K/uL (0.1-1.0); MONOCYTES % (AUTO) 8.9 % (2.0-9.0); NEUTROPHILS # (AUTO) 8.6 K/uL (1.8-7.7); NEUTROPHILS % (AUTO) 87.9 % (40.0-70.0); PLATELET COUNT (AUTO) 476 K/uL (150-450); RED BLOOD CELL COUNT(AUTO) 3.25 MIL/uL (4.50-5.90); RED CELL DISTRIBUTION WIDTH 13.6 % (11.5-14.5)
[2019-04-17] MEDS ORDERED: SODIUM CHLORIDE 0.9% 250 ML IV ONE (05:08)
[2019-04-17] MEDS: PIPERACILLIN/TAZO 3.375 GM/D5W 50 ML IV SCH ×4 (05:10→23:15)
[2019-04-17] MEDS: MethylPREDNISolone SOD SUCC 125 MG/2 ML VIAL IVP SCH ×4 (05:10→23:15)
[2019-04-17 05:12] LABS: ALBUMIN 2.1 g/dL (3.4-5.0); BILIRUBIN,TOTAL 0.2 mg/dL (0.1-1.0); CALCIUM, TOTAL 8.6 mg/dL (8.8-10.5); CREATININE 1.54 mg/dL (0.60-1.30); POTASSIUM 5.6 mmol/L (3.5-5.1); TOTAL PROTEIN, SERUM 6.2 g/dL (6.4-8.2)
[2019-04-17 06:53] LABS: MAGNESIUM 2.9 mg/dL (1.80-2.40); PHOSPHORUS 4.6 mg/dL (2.5-4.9)
[2019-04-17] MEDS ORDERED: DEXTROSE 5%-WATER 250 ML IV ONE (07:18)
[2019-04-17 08:00] VITALS: BP 155/59
[2019-04-17] MEDS: BENZONATATE 100 MG CAPSULE PO SCH ×3 (08:00→23:12)
[2019-04-17] MEDS: HEPARIN SODIUM,PORCINE 5,000 UNITS/ML VIAL SQ SCH ×3 (08:25→23:15)
[2019-04-17 08:30] LABS: ABG A-A DIFF O2 189.8 mmHg (10-20.0); ABG BASE EXCESS -1.1 mmol/L (-2.0-3.0); ABG CARBOXYHEMOGLOBIN 0.3 % (0.0-3.0); ABG METHEMOGLOBIN 0.6 % (0.0-1.5); ABG OXYGEN SATURATION 95.8 % (95.0-98.0); ABG OXYHEMOGLOBIN 94.9 % (94.0-100.0); ABG PCO2 59 mmHg (35-45); ABG TOTAL HEMOGLOBIN 11.1 G/dL (12.0-18.0); O2 DEVICE,BLOOD GAS VENTILATOR (ROOM AIR); SITE, BLOOD GAS ARTERIAL LINE; SOURCE, BLOOD GAS ARTERIAL; TEMPERATURE, FAHRENHEIT, BG 98.6 FAHREN (96.0-98.6)
[2019-04-17 08:31] LABS: PEEP,BG 8 cm H2O; VT, ABG 460 ml
[2019-04-17] MEDS: DOCUSATE SODIUM 100 MG CAPSULE PO SCH ×2 (08:41→20:09)
[2019-04-17] MEDS: MORPHINE SULFATE 2 MG/ML SYRINGE IVP PRN (10:47)
[2019-04-17 11:57] LABS: CALCIUM, TOTAL 8.5 mg/dL (8.8-10.5); CREATININE 1.51 mg/dL (0.60-1.30); POTASSIUM 5.8 mmol/L (3.5-5.1)
[2019-04-17 12:00] VITALS: BP 137/46
[2019-04-17] MEDS ORDERED: SODIUM POLYSTYRENE SULFONATE 15 GM/60 ML SUSPENSION BOTTLE GT ONE (13:30)
[2019-04-17 16:00] VITALS: BP 146/51
[2019-04-17] MEDS: AZITHROMYCIN 500 MG/NS 250 ML IV SCH (18:36)
[2019-04-17] MEDS: FLUCONAZOLE 400 MG/NACL ISOOSM 200 ML IV SCH (18:37)
[2019-04-17] MEDS ORDERED: DEXTROSE 50%-WATER 25 GM/50 ML SYRINGE IVP PRN (18:45)
[2019-04-17 20:00] VITALS: BP 141/51
[2019-04-17 20:02] LABS: CALCIUM, TOTAL 8.6 mg/dL (8.8-10.5); CREATININE 1.57 mg/dL (0.60-1.30); POTASSIUM 5.7 mmol/L (3.5-5.1)
[2019-04-17] MEDS ORDERED: DEXTROSE 50%-WATER 25 GM/50 ML SYRINGE IVP ONE (20:30)
[2019-04-17] MEDS ORDERED: INSULIN REGULAR, HUMAN 100 UNITS/ML IVP ONE (20:30)
[2019-04-17] MEDS: INSULIN LISPRO 100 UNITS/ML SQ PRN (23:14)
[2019-04-17 23:41] LABS: CALCIUM, TOTAL 8.5 mg/dL (8.8-10.5); CREATININE 1.61 mg/dL (0.60-1.30); POTASSIUM 5.4 mmol/L (3.5-5.1)
[2019-04-18] VITALS: BP 137/63
[2019-04-18] MEDS ORDERED: SODIUM CHLORIDE 0.9% 500 ML IV ONE (00:01)
[2019-04-18 00:04] LABS: GLUCOSE,POINT OF CARE 190 MG/DL (70-110)
[2019-04-18] MEDS: PANTOPRAZOLE SODIUM 80 MG in SODIUM CHLORIDE 0.9% 100 ML IV SCH ×2 (00:51→11:54)
[2019-04-18] MEDS: FentaNYL CITRATE PF 500 MCG in DEXTROSE 5%-WATER 90 ML IV PRN ×8 (00:52→23:46)
[2019-04-18] MEDS: PROPOFOL 1000 MG/ISO-OSM 100 ML IV PRN ×10 (00:53→23:46)
[2019-04-18] MEDS: IPRATROPIUM BROMIDE 0.5 MG/2.5 ML NEB SOLUTION NEB SCH ×8 (02:58→22:31)
[2019-04-18] MEDS: ALBUTEROL SULFATE 2.5 MG/0.5 ML NEB SOLUTION NEB SCH ×8 (02:58→22:31)
[2019-04-18 04:00] VITALS: BP 133/251
[2019-04-18] MEDS: WATER IV SCH ×2 (05:11→13:11)
[2019-04-18] MEDS: DEXTROSE IV SCH ×2 (05:11→13:11)
[2019-04-18] MEDS: TRIMETH IV SCH ×2 (05:11→13:11)
[2019-04-18] MEDS: SULFAMETHOX IV SCH ×2 (05:11→13:11)
[2019-04-18] MEDS: MethylPREDNISolone SOD SUCC 125 MG/2 ML VIAL IVP SCH ×3 (05:17→17:45)
[2019-04-18] MEDS: PIPERACILLIN/TAZO 3.375 GM/D5W 50 ML IV SCH ×4 (05:17→23:46)
[2019-04-18 05:51] LABS: BASOPHILS % (AUTO) 0.1 % (0.0-2.0); EOSINOPHILS % (AUTO) 0 % (1.0-6.0); HEMATOCRIT 28.6 % (41-53); HEMOGLOBIN 9.8 g/dL (13.5-17.5); LYMPHOCYTES # (AUTO) 0.3 K/uL (1.0-4.8); LYMPHOCYTES % (AUTO) 3.2 % (22.0-44.0); MEAN CORPUSCULAR HEMOGLOBIN 31.2 pg (26.0-34.0); MEAN CORPUSCULAR HGB CONC 34.2 G/dL (31.0-37.0); MEAN CORPUSCULAR VOLUME 91 fL (80-100); MONOCYTES # (AUTO) 0.7 K/uL (0.1-1.0); MONOCYTES % (AUTO) 7.6 % (2.0-9.0); NEUTROPHILS # (AUTO) 8.8 K/uL (1.8-7.7); PLATELET COUNT (AUTO) 466 K/uL (150-450); RED BLOOD CELL COUNT(AUTO) 3.13 MIL/uL (4.50-5.90); RED CELL DISTRIBUTION WIDTH 13.4 % (11.5-14.5)
[2019-04-18 05:57] LABS: NEUTROPHILS % (AUTO) 89.1 % (40.0-70.0)
[2019-04-18 06:08] LABS: CALCIUM, TOTAL 8.6 mg/dL (8.8-10.5); CREATININE 1.59 mg/dL (0.60-1.30); MAGNESIUM 2.7 mg/dL (1.80-2.40); PHOSPHORUS 3.4 mg/dL (2.5-4.9); POTASSIUM 5.6 mmol/L (3.5-5.1)
[2019-04-18] MEDS: INSULIN LISPRO 100 UNITS/ML SQ PRN ×4 (06:37→23:54)
[2019-04-18 06:54] LABS: GLUCOSE,POINT OF CARE 131 MG/DL (70-110)
[2019-04-18 08:00] VITALS: BP 130/43
[2019-04-18] MEDS: BENZONATATE 100 MG CAPSULE PO SCH ×3 (08:04→23:47)
[2019-04-18] MEDS: HEPARIN SODIUM,PORCINE 5,000 UNITS/ML VIAL SQ SCH ×3 (08:04→23:45)
[2019-04-18] MEDS: DOCUSATE SODIUM 100 MG CAPSULE PO SCH ×2 (09:11→20:16)
[2019-04-18] MEDS ORDERED: SODIUM POLYSTYRENE SULFONATE 15 GM/60 ML SUSPENSION BOTTLE PO ONE (10:15)
[2019-04-18 11:57] LABS: ABG A-A DIFF O2 223.3 mmHg (10-20.0); ABG BASE EXCESS 1.8 mmol/L (-2.0-3.0); ABG CARBOXYHEMOGLOBIN 0.3 % (0.0-3.0); ABG HCO3 25.7 mmol/L (22.0-26.0); ABG METHEMOGLOBIN 0.5 % (0.0-1.5); ABG OXYGEN SATURATION 94.4 % (95.0-98.0); ABG OXYHEMOGLOBIN 93.6 % (94.0-100.0); ABG PCO2 47 mmHg (35-45); ABG PH 7.377 (7.350-7.450); ABG TOTAL HEMOGLOBIN 10.6 G/dL (12.0-18.0); PO2, ARTERIAL BG 80.7 mmHg (80.0-100.0); SOURCE, BLOOD GAS ARTERIAL; TEMPERATURE, FAHRENHEIT, BG 98.1 FAHREN (96.0-98.6)
[2019-04-18 11:58] LABS: O2 DEVICE,BLOOD GAS VENTILATOR (ROOM AIR); SITE, BLOOD GAS ARTERIAL LINE
[2019-04-18 11:59] LABS: PEEP,BG 6 cm H2O; VT, ABG 460 ml
[2019-04-18 12:00] VITALS: BP 123/42
[2019-04-18 12:30] LABS: GLUCOSE,POINT OF CARE 161 MG/DL (70-110)
[2019-04-18] MEDS: FLUCONAZOLE 400 MG/NACL ISOOSM 200 ML IV SCH (15:54)
[2019-04-18 16:00] VITALS: BP 118/70
[2019-04-18] MEDS: AZITHROMYCIN 500 MG/NS 250 ML IV SCH (16:56)
[2019-04-18] MEDS: DOXYCYCLINE HYCLATE 100 MG in DEXTROSE 5%-WATER 100 ML IV SCH (16:57)
[2019-04-18 18:24] LABS: GLUCOSE,POINT OF CARE 158 MG/DL (70-110)
[2019-04-18] MEDS: MethylPREDNISolone SOD SUCC 40 MG/ML VIAL IVP SCH (20:14)
[2019-04-18] MEDS: PANTOPRAZOLE SODIUM 40 MG/VIAL IVP SCH (20:15)
[2019-04-18 20:50] VITALS: BP 145/51
[2019-04-19] VITALS (7 sets, daily range): BP systolic 137–174; BP diastolic 44–62
[2019-04-19] MEDS: IPRATROPIUM BROMIDE 0.5 MG/2.5 ML NEB SOLUTION NEB SCH ×8 (01:37→22:47)
[2019-04-19] MEDS: ALBUTEROL SULFATE 2.5 MG/0.5 ML NEB SOLUTION NEB SCH ×8 (01:37→22:47)
[2019-04-19] MEDS: PROPOFOL 1000 MG/ISO-OSM 100 ML IV PRN ×11 (02:28→23:36)
[2019-04-19 02:49] LABS: GLUCOSE,POINT OF CARE 188 MG/DL (70-110)
[2019-04-19] MEDS: FentaNYL CITRATE PF 500 MCG in DEXTROSE 5%-WATER 90 ML IV PRN ×6 (03:40→22:50)
[2019-04-19 04:27] LABS: BASOPHILS % (AUTO) 0.1 % (0.0-2.0); EOSINOPHILS % (AUTO) 0 % (1.0-6.0); HEMATOCRIT 29.1 % (41-53); HEMOGLOBIN 9.9 g/dL (13.5-17.5); LYMPHOCYTES # (AUTO) 0.3 K/uL (1.0-4.8); LYMPHOCYTES % (AUTO) 3.4 % (22.0-44.0); MEAN CORPUSCULAR HEMOGLOBIN 30.7 pg (26.0-34.0); MEAN CORPUSCULAR VOLUME 90 fL (80-100); MONOCYTES # (AUTO) 0.7 K/uL (0.1-1.0); MONOCYTES % (AUTO) 7.3 % (2.0-9.0); NEUTROPHILS # (AUTO) 8.4 K/uL (1.8-7.7); PLATELET COUNT (AUTO) 446 K/uL (150-450); RED BLOOD CELL COUNT(AUTO) 3.22 MIL/uL (4.50-5.90); RED CELL DISTRIBUTION WIDTH 13.4 % (11.5-14.5)
[2019-04-19] MEDS: DOXYCYCLINE HYCLATE 100 MG in DEXTROSE 5%-WATER 100 ML IV SCH ×2 (04:28→16:02)
[2019-04-19 04:32] LABS: NEUTROPHILS % (AUTO) 89.2 % (40.0-70.0)
[2019-04-19 04:49] LABS: ALBUMIN 2.4 g/dL (3.4-5.0); BILIRUBIN,TOTAL 0.3 mg/dL (0.1-1.0); CALCIUM, TOTAL 8.6 mg/dL (8.8-10.5); CREATININE 1.75 mg/dL (0.60-1.30); POTASSIUM 5.7 mmol/L (3.5-5.1); TOTAL PROTEIN, SERUM 6.2 g/dL (6.4-8.2)
[2019-04-19] MEDS ORDERED: SODIUM CHLORIDE 0.9% 500 ML IV ONE ×4 (05:27→21:21)
[2019-04-19] MEDS: PIPERACILLIN/TAZO 3.375 GM/D5W 50 ML IV SCH ×3 (05:28→17:48)
[2019-04-19] MEDS: INSULIN LISPRO 100 UNITS/ML SQ PRN ×2 (05:29→18:05)
[2019-04-19 06:14] LABS: GLUCOSE,POINT OF CARE 142 MG/DL (70-110)
[2019-04-19] MEDS: BENZONATATE 100 MG CAPSULE PO SCH ×2 (07:56→16:02)
[2019-04-19] MEDS: HEPARIN SODIUM,PORCINE 5,000 UNITS/ML VIAL SQ SCH ×2 (07:56→16:02)
[2019-04-19] MEDS: MethylPREDNISolone SOD SUCC 40 MG/ML VIAL IVP SCH ×2 (09:09→21:23)
[2019-04-19] MEDS: DOCUSATE SODIUM 100 MG CAPSULE PO SCH ×2 (09:09→21:22)
[2019-04-19] MEDS ORDERED: SODIUM POLYSTYRENE SULFONATE 15 GM/60 ML SUSPENSION BOTTLE NG ONE (09:15)
[2019-04-19] MEDS ORDERED: FUROSEMIDE 20 MG/2 ML VIAL IVP ONE (09:15)
[2019-04-19] MEDS: PANTOPRAZOLE SODIUM 40 MG/VIAL IVP SCH ×2 (09:17→21:23)
[2019-04-19 10:04] LABS: ABG A-A DIFF O2 191.5 mmHg (10-20.0); ABG BASE EXCESS 2.4 mmol/L (-2.0-3.0); ABG CARBOXYHEMOGLOBIN 0.3 % (0.0-3.0); ABG HCO3 26.2 mmol/L (22.0-26.0); ABG METHEMOGLOBIN 0.2 % (0.0-1.5); ABG OXYGEN CONTENT 13.6 mL/dL (15.0-23.0); ABG OXYGEN SATURATION 94.5 % (95.0-98.0); ABG PCO2 45 mmHg (35-45); ABG PH 7.396 (7.350-7.450); ABG TOTAL HEMOGLOBIN 10.2 G/dL (12.0-18.0); PO2, ARTERIAL BG 78.1 mmHg (80.0-100.0); SITE, BLOOD GAS ARTERIAL LINE; SOURCE, BLOOD GAS ARTERIAL; TEMPERATURE, FAHRENHEIT, BG 98.1 FAHREN (96.0-98.6)
[2019-04-19 10:05] LABS: O2 DEVICE,BLOOD GAS VENTILATOR (ROOM AIR); PEEP,BG 5 cm H2O; SPONTANEOUS VT, BG 437 ml; VT, ABG 460 ml
[2019-04-19 12:24] LABS: GLUCOSE,POINT OF CARE 134 MG/DL (70-110)
[2019-04-19] MEDS ORDERED: SODIUM CHLORIDE 0.9% 250 ML IV ONE (16:28)
[2019-04-19] MEDS: FLUCONAZOLE 400 MG/NACL ISOOSM 200 ML IV SCH (16:48)
[2019-04-19] MEDS: AZITHROMYCIN 500 MG/NS 250 ML IV SCH (17:48)
[2019-04-19 19:25] LABS: GLUCOSE,POINT OF CARE 156 MG/DL (70-110)
[2019-04-20] VITALS (7 sets, daily range): BP systolic 144–188; BP diastolic 51–60
[2019-04-20] MEDS: PIPERACILLIN/TAZO 3.375 GM/D5W 50 ML IV SCH ×4 (00:53→19:38)
[2019-04-20] MEDS: HEPARIN SODIUM,PORCINE 5,000 UNITS/ML VIAL SQ SCH ×3 (00:54→16:07)
[2019-04-20] MEDS: FentaNYL CITRATE PF 500 MCG in DEXTROSE 5%-WATER 90 ML IV PRN ×5 (02:34→20:57)
[2019-04-20] MEDS: PROPOFOL 1000 MG/ISO-OSM 100 ML IV PRN ×9 (02:35→21:49)
[2019-04-20] MEDS: IPRATROPIUM BROMIDE 0.5 MG/2.5 ML NEB SOLUTION NEB SCH ×8 (02:44→22:10)
[2019-04-20] MEDS: ALBUTEROL SULFATE 2.5 MG/0.5 ML NEB SOLUTION NEB SCH ×8 (02:44→22:09)
[2019-04-20] MEDS: DOXYCYCLINE HYCLATE 100 MG in DEXTROSE 5%-WATER 100 ML IV SCH (03:28)
[2019-04-20 05:08] LABS: BASOPHILS % (AUTO) 0.3 % (0.0-2.0); EOSINOPHILS % (AUTO) 0 % (1.0-6.0); HEMATOCRIT 27.1 % (41-53); HEMOGLOBIN 9.1 g/dL (13.5-17.5); LYMPHOCYTES # (AUTO) 0.3 K/uL (1.0-4.8); LYMPHOCYTES % (AUTO) 2.9 % (22.0-44.0); MEAN CORPUSCULAR HGB CONC 33.6 G/dL (31.0-37.0); MEAN CORPUSCULAR VOLUME 92 fL (80-100); MONOCYTES # (AUTO) 0.7 K/uL (0.1-1.0); MONOCYTES % (AUTO) 7.8 % (2.0-9.0); PLATELET COUNT (AUTO) 423 K/uL (150-450); RED BLOOD CELL COUNT(AUTO) 2.95 MIL/uL (4.50-5.90); RED CELL DISTRIBUTION WIDTH 13.9 % (11.5-14.5)
[2019-04-20] MEDS: INSULIN LISPRO 100 UNITS/ML SQ PRN (05:13)
[2019-04-20 05:24] LABS: ALANINE AMINOTRANSFERASE 31 U/L (12-78); ALBUMIN 2.3 g/dL (3.4-5.0); ALKALINE PHOSPHATASE 46 U/L (46-116); ANION GAP 8 mmol/L (8-16); ASPARTATE AMINOTRANSFERASE 21 U/L (15-37); BILIRUBIN,TOTAL 0.5 mg/dL (0.1-1.0); CALCIUM, TOTAL 8.4 mg/dL (8.8-10.5); CARBON DIOXIDE 30 mmol/L (22-29); CHLORIDE 97 mmol/L (98-107); CREATININE 1.48 mg/dL (0.60-1.30); GLOMERULAR FILTR. RATE CALC > 60 mL/min (>60); GLUCOSE,RANDOM 136 mg/dL (70-110); LACTATE DEHYDROGENASE 260 U/L (85-227); POTASSIUM 5.1 mmol/L (3.5-5.1); SODIUM SERUM 135 mmol/L (136-145); TOTAL PROTEIN, SERUM 5.7 g/dL (6.4-8.2); UREA NITROGEN, BLOOD 44 mg/dL (7-18)
[2019-04-20 06:54] LABS: GLUCOSE,POINT OF CARE 134 MG/DL (70-110)
[2019-04-20 06:55] LABS: GLUCOSE,POINT OF CARE 142 MG/DL (70-110)
[2019-04-20] MEDS: BENZONATATE 100 MG CAPSULE PO SCH ×3 (08:00→16:00)
[2019-04-20 08:17] LABS: ABG A-A DIFF O2 276.2 mmHg (10-20.0); ABG BASE EXCESS 3.5 mmol/L (-2.0-3.0); ABG CARBOXYHEMOGLOBIN 0.6 % (0.0-3.0); ABG METHEMOGLOBIN 0.2 % (0.0-1.5); ABG OXYGEN CONTENT 16.6 mL/dL (15.0-23.0); ABG OXYGEN SATURATION 92.7 % (95.0-98.0); ABG PCO2 44 mmHg (35-45); ABG PH 7.421 (7.350-7.450); ABG TOTAL HEMOGLOBIN 12.8 G/dL (12.0-18.0); O2 DEVICE,BLOOD GAS VENTILATOR (ROOM AIR); PO2, ARTERIAL BG 67.4 mmHg (80.0-100.0); SITE, BLOOD GAS ARTERIAL LINE; SOURCE, BLOOD GAS ARTERIAL; TEMPERATURE, FAHRENHEIT, BG 98.3 FAHREN (96.0-98.6)
[2019-04-20 08:18] LABS: PEEP,BG 5 cm H2O; VT, ABG 460 ml
[2019-04-20] MEDS: MethylPREDNISolone SOD SUCC 40 MG/ML VIAL IVP SCH ×2 (08:22→20:16)
[2019-04-20] MEDS: DOCUSATE SODIUM 100 MG CAPSULE PO SCH ×2 (08:22→20:17)
[2019-04-20] MEDS: PANTOPRAZOLE SODIUM 40 MG/VIAL IVP SCH ×2 (09:09→20:17)
[2019-04-20] MEDS ORDERED: *CLINICAL-BACTRIM/SEPTRA IVPB DOSING CLINICAL ONE (10:30)
[2019-04-20] MEDS: TRIMETH IV SCH ×3 (11:07→23:21)
[2019-04-20] MEDS: WATER IV SCH ×3 (11:07→23:21)
[2019-04-20] MEDS: DEXTROSE IV SCH ×3 (11:07→23:21)
[2019-04-20] MEDS: SULFAMETHOX IV SCH ×3 (11:07→23:21)
[2019-04-20] MEDS ORDERED: FUROSEMIDE 20 MG/2 ML VIAL IVP ONE (11:30)
[2019-04-20 14:21] LABS: INR 1.2 (0.9-1.1)
[2019-04-20] MEDS: AmLODIPine BESYLATE 5 MG TABLET PO SCH (16:08)
[2019-04-20] MEDS: FLUCONAZOLE 400 MG/NACL ISOOSM 200 ML IV SCH (17:19)
[2019-04-20] MEDS ORDERED: SODIUM CHLORIDE 0.9% 250 ML IV ONE (17:20)
[2019-04-20 18:55] LABS: GLUCOSE,POINT OF CARE 109 MG/DL (70-110)
[2019-04-20] MEDS: AZITHROMYCIN 500 MG/NS 250 ML IV SCH (20:16)
[2019-04-20 20:57] LABS: APPEARANCE,URINE CLEAR (CLEAR); BILIRUBIN,URINE NEGATIVE (NEGATIVE); GLUCOSE, URINE (UA) NEGATIVE (NEGATIVE); KETONES,URINE NEGATIVE (NEGATIVE); LEUKOCYTE ESTERASE ,URINE NEGATIVE (NEGATIVE); NITRATE,URINE NEGATIVE (NEGATIVE); OCCULT BLOOD,URINE TRACE (NEGATIVE); PROTEIN,URINE NEGATIVE (NEGATIVE); UROBILINOGEN,URINE 0.2 mg/dL (<=1.0)
[2019-04-20 21:23] LABS: WBC,URINE 0-2 /HPF (0-5)
[2019-04-20 21:25] LABS: BACTERIA,URINE None Seen /HPF (None Seen); SQUAMOUS EPITHELIAL CELL,UR Rare /LPF (None Seen)
[2019-04-20 21:26] LABS: URIC ACID CRYSTALS,URINE Moderate /LPF (None Seen)
[2019-04-21] VITALS (9 sets, daily range): BP systolic 107–166; BP diastolic 47–78
[2019-04-21] MEDS: PROPOFOL 1000 MG/ISO-OSM 100 ML IV PRN ×9 (00:31→23:16)
[2019-04-21] MEDS: PIPERACILLIN/TAZO 3.375 GM/D5W 50 ML IV SCH ×5 (00:44→23:15)
[2019-04-21] MEDS: BENZONATATE 100 MG CAPSULE PO SCH ×3 (00:44→23:15)
[2019-04-21] MEDS: HEPARIN SODIUM,PORCINE 5,000 UNITS/ML VIAL SQ SCH ×4 (00:44→23:15)
[2019-04-21] MEDS: INSULIN LISPRO 100 UNITS/ML SQ PRN (00:45)
[2019-04-21] MEDS: ALBUTEROL SULFATE 2.5 MG/0.5 ML NEB SOLUTION NEB SCH ×8 (01:00→22:22)
[2019-04-21] MEDS: IPRATROPIUM BROMIDE 0.5 MG/2.5 ML NEB SOLUTION NEB SCH ×8 (01:00→22:22)
[2019-04-21] MEDS: FentaNYL CITRATE PF 500 MCG in DEXTROSE 5%-WATER 90 ML IV PRN ×3 (02:42→23:16)
[2019-04-21] MEDS: WATER IV SCH ×4 (04:57→23:08)
[2019-04-21] MEDS: TRIMETH IV SCH ×4 (04:57→23:08)
[2019-04-21] MEDS: SULFAMETHOX IV SCH ×4 (04:57→23:08)
[2019-04-21] MEDS: DEXTROSE IV SCH ×4 (04:57→23:08)
[2019-04-21 05:00] LABS: GLUCOSE,POINT OF CARE 89 MG/DL (70-110)
[2019-04-21 05:00] LABS: GLUCOSE,POINT OF CARE 165 MG/DL (70-110)
[2019-04-21 05:19] LABS: ALANINE AMINOTRANSFERASE 34 U/L (12-78); ALBUMIN 2.4 g/dL (3.4-5.0); ALKALINE PHOSPHATASE 48 U/L (46-116); ANION GAP 7 mmol/L (8-16); ASPARTATE AMINOTRANSFERASE 26 U/L (15-37); BILIRUBIN,TOTAL 0.5 mg/dL (0.1-1.0); CARBON DIOXIDE 31 mmol/L (22-29); CHLORIDE 97 mmol/L (98-107); GLOMERULAR FILTR. RATE CALC > 60 mL/min (>60); GLUCOSE,RANDOM 98 mg/dL (70-110); POTASSIUM 4.6 mmol/L (3.5-5.1); SODIUM SERUM 135 mmol/L (136-145); TOTAL PROTEIN, SERUM 5.8 g/dL (6.4-8.2); UREA NITROGEN, BLOOD 33 mg/dL (7-18)
[2019-04-21 05:24] LABS: BASOPHILS % (AUTO) 0.1 % (0.0-2.0); EOSINOPHILS % (AUTO) 0 % (1.0-6.0); HEMOGLOBIN 9.6 g/dL (13.5-17.5); LYMPHOCYTES # (AUTO) 0.4 K/uL (1.0-4.8); LYMPHOCYTES % (AUTO) 4.8 % (22.0-44.0); MEAN CORPUSCULAR HEMOGLOBIN 30.4 pg (26.0-34.0); MEAN CORPUSCULAR HGB CONC 33.1 G/dL (31.0-37.0); MEAN CORPUSCULAR VOLUME 92 fL (80-100); MONOCYTES % (AUTO) 11.7 % (2.0-9.0); NEUTROPHILS # (AUTO) 7.5 K/uL (1.8-7.7); NEUTROPHILS % (AUTO) 83.4 % (40.0-70.0); PLATELET COUNT (AUTO) 434 K/uL (150-450); RED BLOOD CELL COUNT(AUTO) 3.15 MIL/uL (4.50-5.90); RED CELL DISTRIBUTION WIDTH 14.3 % (11.5-14.5)
[2019-04-21] MEDS: DOCUSATE SODIUM 100 MG CAPSULE PO SCH ×2 (09:00→20:53)
[2019-04-21] MEDS: AmLODIPine BESYLATE 5 MG TABLET PO SCH (09:01)
[2019-04-21] MEDS: MethylPREDNISolone SOD SUCC 40 MG/ML VIAL IVP SCH ×2 (09:01→20:53)
[2019-04-21] MEDS: PANTOPRAZOLE SODIUM 40 MG/VIAL IVP SCH ×2 (09:01→20:53)
[2019-04-21] MEDS ORDERED: HydrALAZINE HCL 20 MG/ML VIAL IVP PRN (10:00)
[2019-04-21 10:59] LABS: U HISTOPLASMA GALACTOMANNAN AG <0.5 (<0.5 ng/mL)
[2019-04-21 11:40] LABS: ABG BASE EXCESS 5.8 mmol/L (-2.0-3.0); ABG CARBOXYHEMOGLOBIN 0.4 % (0.0-3.0); ABG HCO3 28.7 mmol/L (22.0-26.0); ABG METHEMOGLOBIN 0.3 % (0.0-1.5); ABG OXYGEN CONTENT 16.1 mL/dL (15.0-23.0); ABG OXYGEN SATURATION 91.6 % (95.0-98.0); ABG PCO2 49 mmHg (35-45); ABG PH 7.412 (7.350-7.450); ABG TOTAL HEMOGLOBIN 12.6 G/dL (12.0-18.0); O2 DEVICE,BLOOD GAS VENTILATOR (ROOM AIR); PEEP,BG 5 cm H2O; PO2, ARTERIAL BG 66.3 mmHg (80.0-100.0); SITE, BLOOD GAS ARTERIAL LINE; SOURCE, BLOOD GAS ARTERIAL; TEMPERATURE, FAHRENHEIT, BG 98.6 FAHREN (96.0-98.6); VT, ABG 460 ml
[2019-04-21] MEDS ORDERED: SODIUM CHLORIDE 0.9% 250 ML IV ONE (14:09)
[2019-04-21 16:44] LABS: GLUCOSE,POINT OF CARE 131 MG/DL (70-110)
[2019-04-21] MEDS: AZITHROMYCIN 500 MG/NS 250 ML IV SCH (18:49)
[2019-04-21] MEDS: FLUCONAZOLE 400 MG/NACL ISOOSM 200 ML IV SCH (18:49)
[2019-04-21 23:39] LABS: GLUCOSE,POINT OF CARE 97 MG/DL (70-110)
[2019-04-22] VITALS (12 sets, daily range): BP systolic 92–117; BP diastolic 46–75
[2019-04-22] MEDS: ALBUTEROL SULFATE 2.5 MG/0.5 ML NEB SOLUTION NEB SCH ×8 (01:38→22:41)
[2019-04-22] MEDS: IPRATROPIUM BROMIDE 0.5 MG/2.5 ML NEB SOLUTION NEB SCH ×8 (01:38→22:41)
[2019-04-22] MEDS: PROPOFOL 1000 MG/ISO-OSM 100 ML IV PRN ×7 (02:21→21:28)
[2019-04-22] MEDS: FentaNYL CITRATE PF 500 MCG in DEXTROSE 5%-WATER 90 ML IV PRN ×4 (04:24→20:55)
[2019-04-22 04:48] LABS: BASOPHILS % (AUTO) 0.2 % (0.0-2.0); EOSINOPHILS % (AUTO) 0.1 % (1.0-6.0); HEMATOCRIT 29.9 % (41-53); HEMOGLOBIN 9.7 g/dL (13.5-17.5); LYMPHOCYTES # (AUTO) 0.6 K/uL (1.0-4.8); LYMPHOCYTES % (AUTO) 5.5 % (22.0-44.0); MEAN CORPUSCULAR HEMOGLOBIN 29.9 pg (26.0-34.0); MEAN CORPUSCULAR HGB CONC 32.5 G/dL (31.0-37.0); MEAN CORPUSCULAR VOLUME 92 fL (80-100); MONOCYTES # (AUTO) 0.8 K/uL (0.1-1.0); MONOCYTES % (AUTO) 6.8 % (2.0-9.0); NEUTROPHILS # (AUTO) 10.1 K/uL (1.8-7.7); PLATELET COUNT (AUTO) 434 K/uL (150-450); RED BLOOD CELL COUNT(AUTO) 3.25 MIL/uL (4.50-5.90); RED CELL DISTRIBUTION WIDTH 14.3 % (11.5-14.5)
[2019-04-22 04:55] LABS: ANION GAP 6 mmol/L (8-16); CALCIUM, TOTAL 8.9 mg/dL (8.8-10.5); CARBON DIOXIDE 30 mmol/L (22-29); CHLORIDE 98 mmol/L (98-107); GLOMERULAR FILTR. RATE CALC > 60 mL/min (>60); GLUCOSE,RANDOM 116 mg/dL (70-110); NEUTROPHILS % (AUTO) 87.4 % (40.0-70.0); POTASSIUM 4.7 mmol/L (3.5-5.1); SODIUM SERUM 134 mmol/L (136-145); UREA NITROGEN, BLOOD 28 mg/dL (7-18)
[2019-04-22] MEDS: DEXTROSE IV SCH ×4 (05:01→23:03)
[2019-04-22] MEDS: TRIMETH IV SCH ×4 (05:01→23:03)
[2019-04-22] MEDS: SULFAMETHOX IV SCH ×4 (05:01→23:03)
[2019-04-22] MEDS: WATER IV SCH ×4 (05:01→23:03)
[2019-04-22] MEDS: PIPERACILLIN/TAZO 3.375 GM/D5W 50 ML IV SCH ×2 (05:02→11:52)
[2019-04-22] MEDS ORDERED: SODIUM CHLORIDE 0.9% 250 ML IV ONE (05:07)
[2019-04-22 05:10] LABS: LACTATE DEHYDROGENASE 281 U/L (85-227)
[2019-04-22 06:09] LABS: GLUCOSE,POINT OF CARE 119 MG/DL (70-110)
[2019-04-22] MEDS: HEPARIN SODIUM,PORCINE 5,000 UNITS/ML VIAL SQ SCH ×3 (07:46→23:37)
[2019-04-22] MEDS: BENZONATATE 100 MG CAPSULE PO SCH ×3 (07:46→23:37)
[2019-04-22 08:09] LABS: ABG A-A DIFF O2 139.9 mmHg (10-20.0); ABG BASE EXCESS 1.3 mmol/L (-2.0-3.0); ABG HCO3 25.4 mmol/L (22.0-26.0); ABG METHEMOGLOBIN 0.1 % (0.0-1.5); ABG OXYGEN CONTENT 13.9 mL/dL (15.0-23.0); ABG OXYGEN SATURATION 96.2 % (95.0-98.0); ABG OXYHEMOGLOBIN 96.1 % (94.0-100.0); ABG PCO2 45 mmHg (35-45); ABG PH 7.383 (7.350-7.450); ABG TOTAL HEMOGLOBIN 10.2 G/dL (12.0-18.0); PO2, ARTERIAL BG 93.2 mmHg (80.0-100.0); SOURCE, BLOOD GAS ARTERIAL; TEMPERATURE, FAHRENHEIT, BG 98.6 FAHREN (96.0-98.6)
[2019-04-22 08:10] LABS: O2 DEVICE,BLOOD GAS VENTILATOR (ROOM AIR); PEEP,BG 5 cm H2O; SITE, BLOOD GAS RT RADIAL; VT, ABG 460 ml
[2019-04-22] MEDS: PANTOPRAZOLE SODIUM 40 MG/VIAL IVP SCH ×2 (08:20→22:39)
[2019-04-22] MEDS: MethylPREDNISolone SOD SUCC 40 MG/ML VIAL IVP SCH ×2 (08:20→22:39)
[2019-04-22] MEDS: AmLODIPine BESYLATE 10 MG TABLET PO SCH ×2 (08:21→09:00)
[2019-04-22] MEDS: DOCUSATE SODIUM 100 MG CAPSULE PO SCH ×2 (09:00→21:00)
[2019-04-22] MEDS: INSULIN LISPRO 100 UNITS/ML SQ PRN (12:12)
[2019-04-22 15:10] LABS: GLUCOSE,POINT OF CARE 145 MG/DL (70-110)
[2019-04-22] MEDS: FLUCONAZOLE 400 MG/NACL ISOOSM 200 ML IV SCH (16:34)
[2019-04-22 18:50] LABS: GLUCOSE,POINT OF CARE 128 MG/DL (70-110)
[2019-04-22 23:54] LABS: GLUCOSE,POINT OF CARE 116 MG/DL (70-110)
[2019-04-23] VITALS (7 sets, daily range): BP systolic 96–120; BP diastolic 43–66
[2019-04-23] MEDS: PROPOFOL 1000 MG/ISO-OSM 100 ML IV PRN ×5 (00:45→10:28)
[2019-04-23] MEDS: ALBUTEROL SULFATE 2.5 MG/0.5 ML NEB SOLUTION NEB SCH ×8 (01:07→22:29)
[2019-04-23] MEDS: IPRATROPIUM BROMIDE 0.5 MG/2.5 ML NEB SOLUTION NEB SCH ×8 (01:07→22:29)
[2019-04-23] MEDS: FentaNYL CITRATE PF 500 MCG in DEXTROSE 5%-WATER 90 ML IV PRN ×2 (02:46→08:00)
[2019-04-23 05:05] LABS: BASOPHILS % (AUTO) 0.1 % (0.0-2.0); EOSINOPHILS % (AUTO) 0.2 % (1.0-6.0); HEMOGLOBIN 9.4 g/dL (13.5-17.5); LYMPHOCYTES # (AUTO) 0.7 K/uL (1.0-4.8); LYMPHOCYTES % (AUTO) 4.9 % (22.0-44.0); MEAN CORPUSCULAR HEMOGLOBIN 29.8 pg (26.0-34.0); MEAN CORPUSCULAR HGB CONC 32.4 G/dL (31.0-37.0); MEAN CORPUSCULAR VOLUME 92 fL (80-100); MONOCYTES # (AUTO) 0.8 K/uL (0.1-1.0); MONOCYTES % (AUTO) 5.8 % (2.0-9.0); NEUTROPHILS # (AUTO) 12.1 K/uL (1.8-7.7); PLATELET COUNT (AUTO) 398 K/uL (150-450); RED BLOOD CELL COUNT(AUTO) 3.15 MIL/uL (4.50-5.90); RED CELL DISTRIBUTION WIDTH 14.5 % (11.5-14.5)
[2019-04-23 05:10] LABS: GLUCOSE,POINT OF CARE 128 MG/DL (70-110)
[2019-04-23 05:16] LABS: ALBUMIN 2.4 g/dL (3.4-5.0); ANION GAP 6 mmol/L (8-16); CALCIUM, TOTAL 8.9 mg/dL (8.8-10.5); CARBON DIOXIDE 29 mmol/L (22-29); CHLORIDE 100 mmol/L (98-107); CREATININE 1.16 mg/dL (0.60-1.30); GLOMERULAR FILTR. RATE CALC > 60 mL/min (>60); GLUCOSE,RANDOM 127 mg/dL (70-110); POTASSIUM 5.3 mmol/L (3.5-5.1); SODIUM SERUM 135 mmol/L (136-145); UREA NITROGEN, BLOOD 28 mg/dL (7-18)
[2019-04-23] MEDS: WATER IV SCH ×4 (05:19→23:00)
[2019-04-23] MEDS: SULFAMETHOX IV SCH ×4 (05:19→23:00)
[2019-04-23] MEDS: DEXTROSE IV SCH ×4 (05:19→23:00)
[2019-04-23] MEDS: TRIMETH IV SCH ×4 (05:19→23:00)
[2019-04-23] MEDS: AmLODIPine BESYLATE 10 MG TABLET PO SCH (07:52)
[2019-04-23] MEDS: DOCUSATE SODIUM 100 MG CAPSULE PO SCH ×2 (07:53→21:00)
[2019-04-23] MEDS: MethylPREDNISolone SOD SUCC 40 MG/ML VIAL IVP SCH ×2 (08:00→21:02)
[2019-04-23] MEDS: HEPARIN SODIUM,PORCINE 5,000 UNITS/ML VIAL SQ SCH ×2 (08:01→15:55)
[2019-04-23] MEDS: BENZONATATE 100 MG CAPSULE PO SCH ×2 (08:01→15:49)
[2019-04-23] MEDS: PANTOPRAZOLE SODIUM 40 MG/VIAL IVP SCH ×2 (08:01→22:46)
[2019-04-23] MEDS ORDERED: SODIUM CHLORIDE 0.9% 250 ML IV ONE ×2 (08:39→17:23)
[2019-04-23 12:58] LABS: ABG A-A DIFF O2 145.3 mmHg (10-20.0); ABG BASE EXCESS 2.7 mmol/L (-2.0-3.0); ABG CARBOXYHEMOGLOBIN 0.1 % (0.0-3.0); ABG HCO3 26.5 mmol/L (22.0-26.0); ABG METHEMOGLOBIN 0.4 % (0.0-1.5); ABG OXYGEN CONTENT 14.1 mL/dL (15.0-23.0); ABG OXYGEN SATURATION 96.2 % (95.0-98.0); ABG OXYHEMOGLOBIN 95.7 % (94.0-100.0); ABG PCO2 45 mmHg (35-45); ABG PH 7.401 (7.350-7.450); ABG TOTAL HEMOGLOBIN 10.4 G/dL (12.0-18.0); PO2, ARTERIAL BG 88.2 mmHg (80.0-100.0); SOURCE, BLOOD GAS ARTERIAL; TEMPERATURE, FAHRENHEIT, BG 98.2 FAHREN (96.0-98.6)
[2019-04-23 13:01] LABS: O2 DEVICE,BLOOD GAS VENTILATOR (ROOM AIR); PEEP,BG 5 cm H2O; PRESSURE SUPPORT, BG 8 cm H2O; SITE, BLOOD GAS LFT RADIAL; SPONTANEOUS VT, BG 511 ml; VENT MODE, BG CPAP (ROOM AIR); VT, ABG 511 ml
[2019-04-23] MEDS ORDERED: MetroNIDAZOLE 500 MG TABLET PO SCH (16:00)
[2019-04-23] MEDS: FLUCONAZOLE 400 MG/NACL ISOOSM 200 ML IV SCH (16:35)
[2019-04-23] MEDS: MetroNIDAZOLE 500 MG/NACL 100 ML IV SCH (17:11)
[2019-04-23 18:40] LABS: GLUCOSE,POINT OF CARE 124 MG/DL (70-110)
[2019-04-23 20:04] LABS: GLUCOSE,POINT OF CARE 132 MG/DL (70-110)
[2019-04-23 20:41] LABS: C.DIFF GDH ANTIGEN, Stool Negative (Negative); C.DIFF TOXINS A&B, Stool Negative (Negative)
[2019-04-23 22:23] LABS: ABG A-A DIFF O2 176.4 mmHg (10-20.0); ABG BASE EXCESS 5.2 mmol/L (-2.0-3.0); ABG CARBOXYHEMOGLOBIN 0.4 % (0.0-3.0); ABG HCO3 28.7 mmol/L (22.0-26.0); ABG METHEMOGLOBIN 0.1 % (0.0-1.5); ABG OXYGEN CONTENT 13.7 mL/dL (15.0-23.0); ABG OXYGEN SATURATION 91.6 % (95.0-98.0); ABG OXYHEMOGLOBIN 91.1 % (94.0-100.0); ABG PCO2 40 mmHg (35-45); ABG PH 7.475 (7.350-7.450); ABG TOTAL HEMOGLOBIN 10.7 G/dL (12.0-18.0); O2 DEVICE,BLOOD GAS CANNULA (ROOM AIR); PO2, ARTERIAL BG 62.9 mmHg (80.0-100.0); SITE, BLOOD GAS RT RADIAL; SOURCE, BLOOD GAS ARTERIAL; TEMPERATURE, FAHRENHEIT, BG 98.2 FAHREN (96.0-98.6)
[2019-04-24] VITALS: BP 121/68
[2019-04-24] MEDS: ALBUTEROL SULFATE 2.5 MG/0.5 ML NEB SOLUTION NEB SCH ×8 (00:16→23:04)
[2019-04-24] MEDS: IPRATROPIUM BROMIDE 0.5 MG/2.5 ML NEB SOLUTION NEB SCH ×8 (00:16→23:04)
[2019-04-24] MEDS: HEPARIN SODIUM,PORCINE 5,000 UNITS/ML VIAL SQ SCH ×4 (00:33→23:12)
[2019-04-24] MEDS: MetroNIDAZOLE 500 MG/NACL 100 ML IV SCH ×3 (00:33→16:32)
[2019-04-24] MEDS: ONDANSETRON HCL 4 MG/2 ML VIAL IVP PRN (02:21)
[2019-04-24 04:00] VITALS: BP 122/58
[2019-04-24] MEDS: TRIMETH IV SCH ×4 (05:15→23:06)
[2019-04-24] MEDS: DEXTROSE IV SCH ×4 (05:15→23:06)
[2019-04-24] MEDS: SULFAMETHOX IV SCH ×4 (05:15→23:06)
[2019-04-24] MEDS: WATER IV SCH ×4 (05:15→23:06)
[2019-04-24 08:00] VITALS: BP 117/60
[2019-04-24] MEDS: BENZONATATE 100 MG CAPSULE PO SCH ×4 (08:00→23:12)
[2019-04-24] MEDS: MethylPREDNISolone SOD SUCC 40 MG/ML VIAL IVP SCH (08:42)
[2019-04-24] MEDS: DOCUSATE SODIUM 100 MG CAPSULE PO SCH ×2 (09:00→20:02)
[2019-04-24] MEDS: AmLODIPine BESYLATE 10 MG TABLET PO SCH (09:00)
[2019-04-24 09:45] LABS: GLUCOSE,POINT OF CARE 131 MG/DL (70-110)
[2019-04-24 09:45] LABS: GLUCOSE,POINT OF CARE 119 MG/DL (70-110)
[2019-04-24] MEDS: PANTOPRAZOLE SODIUM 40 MG/VIAL IVP SCH ×2 (10:10→20:48)
[2019-04-24 12:00] VITALS: BP 108/48
[2019-04-24] MEDS: PredniSONE 20 MG TABLET PO SCH (14:00)
[2019-04-24 16:00] VITALS: BP 121/68
[2019-04-24 17:35] LABS: GLUCOSE,POINT OF CARE 133 MG/DL (70-110)
[2019-04-24] MEDS: FLUCONAZOLE 400 MG/NACL ISOOSM 200 ML IV SCH (17:51)
[2019-04-24 20:00] VITALS: BP 117/65
[2019-04-24] MEDS: INSULIN LISPRO 100 UNITS/ML SQ PRN (23:29)
[2019-04-24 23:39] LABS: GLUCOSE,POINT OF CARE 110 MG/DL (70-110)
[2019-04-25] VITALS: BP 121/84
[2019-04-25] MEDS: MetroNIDAZOLE 500 MG/NACL 100 ML IV SCH ×3 (00:17→16:08)
[2019-04-25] MEDS: IPRATROPIUM BROMIDE 0.5 MG/2.5 ML NEB SOLUTION NEB SCH ×8 (01:58→23:02)
[2019-04-25] MEDS: ALBUTEROL SULFATE 2.5 MG/0.5 ML NEB SOLUTION NEB SCH ×8 (01:58→23:02)
[2019-04-25 04:00] VITALS: BP 125/75
[2019-04-25] MEDS: INSULIN LISPRO 100 UNITS/ML SQ PRN ×2 (04:54→23:32)
[2019-04-25] MEDS: DEXTROSE IV SCH ×4 (05:09→23:12)
[2019-04-25] MEDS: TRIMETH IV SCH ×4 (05:09→23:12)
[2019-04-25] MEDS: SULFAMETHOX IV SCH ×4 (05:09→23:12)
[2019-04-25] MEDS: WATER IV SCH ×4 (05:09→23:12)
[2019-04-25 05:22] LABS: BASOPHILS % (AUTO) 0.2 % (0.0-2.0); EOSINOPHILS % (AUTO) 1.1 % (1.0-6.0); HEMATOCRIT 29.2 % (41-53); HEMOGLOBIN 9.5 g/dL (13.5-17.5); LYMPHOCYTES # (AUTO) 3.5 K/uL (1.0-4.8); LYMPHOCYTES % (AUTO) 19.1 % (22.0-44.0); MEAN CORPUSCULAR HEMOGLOBIN 29.7 pg (26.0-34.0); MEAN CORPUSCULAR HGB CONC 32.7 G/dL (31.0-37.0); MEAN CORPUSCULAR VOLUME 91 fL (80-100); MONOCYTES # (AUTO) 2.4 K/uL (0.1-1.0); MONOCYTES % (AUTO) 13.3 % (2.0-9.0); NEUTROPHILS % (AUTO) 66.3 % (40.0-70.0); PLATELET COUNT (AUTO) 354 K/uL (150-450); RED BLOOD CELL COUNT(AUTO) 3.21 MIL/uL (4.50-5.90); RED CELL DISTRIBUTION WIDTH 14.4 % (11.5-14.5)
[2019-04-25] MEDS: ONDANSETRON HCL 4 MG/2 ML VIAL IVP PRN ×3 (05:26→12:43)
[2019-04-25] MEDS ORDERED: SODIUM CHLORIDE 0.9% 100 ML ONE (05:28)
[2019-04-25 05:34] LABS: HEMOGLOBIN A1C 6.1 % (4.5-6.2)
[2019-04-25 05:36] LABS: ALANINE AMINOTRANSFERASE 62 U/L (12-78); ALBUMIN 2.8 g/dL (3.4-5.0); ALKALINE PHOSPHATASE 59 U/L (46-116); ANION GAP 9 mmol/L (8-16); ASPARTATE AMINOTRANSFERASE 32 U/L (15-37); BILIRUBIN,TOTAL 0.6 mg/dL (0.1-1.0); CALCIUM, TOTAL 9.5 mg/dL (8.8-10.5); CARBON DIOXIDE 27 mmol/L (22-29); CHLORIDE 97 mmol/L (98-107); CREATININE 1.21 mg/dL (0.60-1.30); GLOMERULAR FILTR. RATE CALC > 60 mL/min (>60); GLUCOSE,RANDOM 89 mg/dL (70-110); POTASSIUM 4.7 mmol/L (3.5-5.1); SODIUM SERUM 133 mmol/L (136-145); TOTAL PROTEIN, SERUM 6.3 g/dL (6.4-8.2); UREA NITROGEN, BLOOD 25 mg/dL (7-18)
[2019-04-25 07:04] LABS: GLUCOSE,POINT OF CARE 111 MG/DL (70-110)
[2019-04-25 07:04] LABS: GLUCOSE,POINT OF CARE 87 MG/DL (70-110)
[2019-04-25] MEDS: HEPARIN SODIUM,PORCINE 5,000 UNITS/ML VIAL SQ SCH ×3 (07:56→23:28)
[2019-04-25] MEDS: PANTOPRAZOLE SODIUM 40 MG/VIAL IVP SCH ×2 (07:56→20:05)
[2019-04-25] MEDS: AmLODIPine BESYLATE 10 MG TABLET PO SCH (07:56)
[2019-04-25] MEDS: LORazepam 2 MG/ML VIAL IVP PRN ×2 (07:56→13:57)
[2019-04-25] MEDS: PredniSONE 20 MG TABLET PO SCH (07:57)
[2019-04-25 08:00] VITALS: BP 128/87
[2019-04-25] MEDS: BENZONATATE 100 MG CAPSULE PO SCH ×3 (08:07→23:28)
[2019-04-25 08:57] LABS: ABG A-A DIFF O2 248.3 mmHg (10-20.0); ABG BASE EXCESS 1.2 mmol/L (-2.0-3.0); ABG CARBOXYHEMOGLOBIN 0.9 % (0.0-3.0); ABG HCO3 25.9 mmol/L (22.0-26.0); ABG METHEMOGLOBIN 0.3 % (0.0-1.5); ABG OXYGEN CONTENT 20.1 mL/dL (15.0-23.0); ABG OXYGEN SATURATION 93.3 % (95.0-98.0); ABG OXYHEMOGLOBIN 92.2 % (94.0-100.0); ABG PCO2 35 mmHg (35-45); ABG TOTAL HEMOGLOBIN 15.5 G/dL (12.0-18.0); PO2, ARTERIAL BG 68.8 mmHg (80.0-100.0); SOURCE, BLOOD GAS ARTERIAL; TEMPERATURE, FAHRENHEIT, BG 98.6 FAHREN (96.0-98.6)
[2019-04-25 08:59] LABS: SITE, BLOOD GAS RT RADIAL
[2019-04-25 09:00] LABS: O2 DEVICE,BLOOD GAS HI FL CANNULA (ROOM AIR)
[2019-04-25] MEDS ORDERED: FLUoxetine HCL 10 MG CAPSULE PO SCH (09:00)
[2019-04-25] MEDS: DOCUSATE SODIUM 100 MG CAPSULE PO SCH ×2 (09:00→19:30)
[2019-04-25] MEDS ORDERED: SODIUM CHLORIDE 0.9% 250 ML IV ONE ×2 (11:15→17:19)
[2019-04-25 12:00] VITALS: BP 127/55
[2019-04-25 12:03] LABS: SODIUM,URINE RANDOM 185 mmol/l (20-110)
[2019-04-25 12:15] LABS: APPEARANCE,URINE CLEAR (CLEAR); BILIRUBIN,URINE NEGATIVE (NEGATIVE); GLUCOSE, URINE (UA) NEGATIVE (NEGATIVE); KETONES,URINE NEGATIVE (NEGATIVE); LEUKOCYTE ESTERASE ,URINE NEGATIVE (NEGATIVE); NITRATE,URINE NEGATIVE (NEGATIVE); OCCULT BLOOD,URINE LARGE (NEGATIVE); PH,URINE 7.5 (5.0-8.0); PROTEIN,URINE TRACE (NEGATIVE); UROBILINOGEN,URINE 0.2 mg/dL (<=1.0)
[2019-04-25 12:28] LABS: BACTERIA,URINE None Seen /HPF (None Seen); OSMOLALITY,URINE 638 mOS/kg (50-1200); RBC,URINE 26-50 /HPF (0-2); SQUAMOUS EPITHELIAL CELL,UR Rare /LPF (None Seen)
[2019-04-25] MEDS: RINGERS SOLUTION,LACTATED 1,000 ML IV SCH (12:51)
[2019-04-25 14:40] LABS: GLUCOSE,POINT OF CARE 95 MG/DL (70-110)
[2019-04-25 15:38] LABS: APPEARANCE,URINE CLEAR (CLEAR); BILIRUBIN,URINE NEGATIVE (NEGATIVE); GLUCOSE, URINE (UA) NEGATIVE (NEGATIVE); KETONES,URINE NEGATIVE (NEGATIVE); LEUKOCYTE ESTERASE ,URINE NEGATIVE (NEGATIVE); NITRATE,URINE NEGATIVE (NEGATIVE); OCCULT BLOOD,URINE LARGE (NEGATIVE); PH,URINE 7.5 (5.0-8.0); PROTEIN,URINE NEGATIVE (NEGATIVE); UROBILINOGEN,URINE 0.2 mg/dL (<=1.0)
[2019-04-25 15:53] LABS: RBC,URINE 51-100 /HPF (0-2)
[2019-04-25 15:54] LABS: BACTERIA,URINE None Seen /HPF (None Seen); WBC,URINE 0-2 /HPF (0-5)
[2019-04-25 15:55] LABS: SQUAMOUS EPITHELIAL CELL,UR Rare /LPF (None Seen)
[2019-04-25 16:00] VITALS: BP 97/49
[2019-04-25] MEDS: FLUoxetine HCL 10 MG CAPSULE PO SCH (18:12)
[2019-04-25 20:00] VITALS: BP 106/62
[2019-04-26] VITALS: BP 117/74
[2019-04-26] MEDS ORDERED: SODIUM CHLORIDE 0.9% 500 ML IV ONE (00:14)
[2019-04-26] MEDS: MetroNIDAZOLE 500 MG/NACL 100 ML IV SCH ×2 (00:21→08:36)
[2019-04-26] MEDS: ONDANSETRON HCL 4 MG/2 ML VIAL IVP PRN ×4 (00:35→23:46)
[2019-04-26] MEDS: ALBUTEROL SULFATE 2.5 MG/0.5 ML NEB SOLUTION NEB SCH ×8 (01:57→22:34)
[2019-04-26] MEDS: IPRATROPIUM BROMIDE 0.5 MG/2.5 ML NEB SOLUTION NEB SCH ×8 (01:57→22:34)
[2019-04-26] MEDS: RINGERS SOLUTION,LACTATED 1,000 ML IV SCH ×2 (02:16→17:40)
[2019-04-26] MEDS: LORazepam 2 MG/ML VIAL IVP PRN ×2 (02:52→17:40)
[2019-04-26 04:00] VITALS: BP 124/76
[2019-04-26] MEDS: SULFAMETHOX IV SCH ×4 (05:04→23:07)
[2019-04-26] MEDS: WATER IV SCH ×4 (05:04→23:07)
[2019-04-26] MEDS: TRIMETH IV SCH ×4 (05:04→23:07)
[2019-04-26] MEDS: DEXTROSE IV SCH ×4 (05:04→23:07)
[2019-04-26] MEDS: INSULIN LISPRO 100 UNITS/ML SQ PRN ×2 (05:26→23:56)
[2019-04-26 05:52] LABS: BASOPHILS % (AUTO) 0.1 % (0.0-2.0); EOSINOPHILS % (AUTO) 2.9 % (1.0-6.0); HEMATOCRIT 28.3 % (41-53); HEMOGLOBIN 9.4 g/dL (13.5-17.5); LYMPHOCYTES # (AUTO) 2.5 K/uL (1.0-4.8); LYMPHOCYTES % (AUTO) 18.1 % (22.0-44.0); MEAN CORPUSCULAR HEMOGLOBIN 30.6 pg (26.0-34.0); MEAN CORPUSCULAR HGB CONC 33.2 G/dL (31.0-37.0); MEAN CORPUSCULAR VOLUME 92 fL (80-100); MONOCYTES # (AUTO) 1.7 K/uL (0.1-1.0); MONOCYTES % (AUTO) 12.1 % (2.0-9.0); NEUTROPHILS # (AUTO) 9.4 K/uL (1.8-7.7); NEUTROPHILS % (AUTO) 66.8 % (40.0-70.0); PLATELET COUNT (AUTO) 303 K/uL (150-450); RED BLOOD CELL COUNT(AUTO) 3.07 MIL/uL (4.50-5.90); RED CELL DISTRIBUTION WIDTH 14.4 % (11.5-14.5)
[2019-04-26 05:56] LABS: ANION GAP 7 mmol/L (8-16); CALCIUM, TOTAL 9.4 mg/dL (8.8-10.5); CARBON DIOXIDE 27 mmol/L (22-29); CHLORIDE 99 mmol/L (98-107); CREATININE 1.27 mg/dL (0.60-1.30); GLOMERULAR FILTR. RATE CALC > 60 mL/min (>60); GLUCOSE,RANDOM 90 mg/dL (70-110); SODIUM SERUM 133 mmol/L (136-145); UREA NITROGEN, BLOOD 24 mg/dL (7-18)
[2019-04-26 06:05] LABS: GLUCOSE,POINT OF CARE 116 MG/DL (70-110)
[2019-04-26 06:05] LABS: GLUCOSE,POINT OF CARE 107 MG/DL (70-110)
[2019-04-26 07:05] LABS: GLUCOSE,POINT OF CARE 102 MG/DL (70-110)
[2019-04-26 08:00] VITALS: BP 114/64
[2019-04-26] MEDS: BENZONATATE 100 MG CAPSULE PO SCH ×4 (08:00→23:44)
[2019-04-26] MEDS: PredniSONE 20 MG TABLET PO SCH ×2 (08:33→09:00)
[2019-04-26] MEDS: PANTOPRAZOLE SODIUM 40 MG/VIAL IVP SCH ×2 (08:33→20:38)
[2019-04-26] MEDS: HEPARIN SODIUM,PORCINE 5,000 UNITS/ML VIAL SQ SCH ×3 (08:33→23:46)
[2019-04-26] MEDS: FLUoxetine HCL 10 MG CAPSULE PO SCH (08:33)
[2019-04-26] MEDS: AmLODIPine BESYLATE 10 MG TABLET PO SCH ×2 (08:34→09:00)
[2019-04-26] MEDS: DOCUSATE SODIUM 100 MG CAPSULE PO SCH ×2 (09:00→20:15)
[2019-04-26] MEDS: METOCLOPRAMIDE HCL 5 MG/ML 2 ML VIAL IVP SCH ×3 (11:53→20:38)
[2019-04-26] MEDS ORDERED: BARIUM SULFATE 0.1% SUSPENSION 450 ML BOTTLE ONE (13:57)
[2019-04-26] MEDS ORDERED: SODIUM CHLORIDE 0.9% 100 ML ONE (15:58)
[2019-04-26] MEDS ORDERED: IOVERSOL 350 MG/ML 150 ML VIAL ONE (15:58)
[2019-04-26 16:00] VITALS: BP 118/80
[2019-04-26 20:00] VITALS: BP 117/74
[2019-04-26] MEDS: MethylPREDNISolone SOD SUCC 40 MG/ML VIAL IVP SCH (20:37)
[2019-04-27] VITALS (8 sets, daily range): BP systolic 125–142; BP diastolic 53–89
[2019-04-27] MEDS: IPRATROPIUM BROMIDE 0.5 MG/2.5 ML NEB SOLUTION NEB SCH ×8 (01:00→22:27)
[2019-04-27] MEDS: ALBUTEROL SULFATE 2.5 MG/0.5 ML NEB SOLUTION NEB SCH ×8 (01:00→22:27)
[2019-04-27] MEDS: RINGERS SOLUTION,LACTATED 1,000 ML IV SCH (04:16)
[2019-04-27 04:42] LABS: BASOPHILS % (AUTO) 0.3 % (0.0-2.0); EOSINOPHILS % (AUTO) 0.2 % (1.0-6.0); HEMATOCRIT 28.2 % (41-53); HEMOGLOBIN 9.5 g/dL (13.5-17.5); LYMPHOCYTES # (AUTO) 0.6 K/uL (1.0-4.8); LYMPHOCYTES % (AUTO) 5.6 % (22.0-44.0); MEAN CORPUSCULAR HEMOGLOBIN 30.9 pg (26.0-34.0); MEAN CORPUSCULAR HGB CONC 33.6 G/dL (31.0-37.0); MEAN CORPUSCULAR VOLUME 92 fL (80-100); MONOCYTES # (AUTO) 0.7 K/uL (0.1-1.0); NEUTROPHILS # (AUTO) 9.1 K/uL (1.8-7.7); PLATELET COUNT (AUTO) 275 K/uL (150-450); RED BLOOD CELL COUNT(AUTO) 3.06 MIL/uL (4.50-5.90); RED CELL DISTRIBUTION WIDTH 14.3 % (11.5-14.5)
[2019-04-27 04:47] LABS: NEUTROPHILS % (AUTO) 86.9 % (40.0-70.0)
[2019-04-27 04:53] LABS: ANION GAP 10 mmol/L (8-16); CALCIUM, TOTAL 9.4 mg/dL (8.8-10.5); CARBON DIOXIDE 25 mmol/L (22-29); CHLORIDE 97 mmol/L (98-107); CREATININE 1.16 mg/dL (0.60-1.30); GLOMERULAR FILTR. RATE CALC > 60 mL/min (>60); GLUCOSE,RANDOM 110 mg/dL (70-110); POTASSIUM 5.1 mmol/L (3.5-5.1); SODIUM SERUM 132 mmol/L (136-145); UREA NITROGEN, BLOOD 20 mg/dL (7-18)
[2019-04-27] MEDS: SULFAMETHOX IV SCH ×4 (05:13→23:11)
[2019-04-27] MEDS: WATER IV SCH ×4 (05:13→23:11)
[2019-04-27] MEDS: DEXTROSE IV SCH ×4 (05:13→23:11)
[2019-04-27] MEDS: TRIMETH IV SCH ×4 (05:13→23:11)
[2019-04-27] MEDS: INSULIN LISPRO 100 UNITS/ML SQ PRN (05:21)
[2019-04-27] MEDS: METOCLOPRAMIDE HCL 5 MG/ML 2 ML VIAL IVP SCH ×5 (06:11→23:12)
[2019-04-27] MEDS: ONDANSETRON HCL 4 MG/2 ML VIAL IVP PRN ×2 (06:37→23:13)
[2019-04-27] MEDS: BENZONATATE 100 MG CAPSULE PO SCH ×3 (08:00→23:12)
[2019-04-27] MEDS: DOCUSATE SODIUM 100 MG CAPSULE PO SCH ×2 (08:33→20:39)
[2019-04-27] MEDS: PANTOPRAZOLE SODIUM 40 MG/VIAL IVP SCH ×2 (08:33→20:39)
[2019-04-27] MEDS: MethylPREDNISolone SOD SUCC 40 MG/ML VIAL IVP SCH ×2 (08:33→20:39)
[2019-04-27] MEDS: HEPARIN SODIUM,PORCINE 5,000 UNITS/ML VIAL SQ SCH ×3 (08:33→23:12)
[2019-04-27] MEDS ORDERED: SODIUM CHLORIDE 0.9% 1,000 ML IV ONE (10:30)
[2019-04-27] MEDS ORDERED: *CLINICAL-PERIPHERAL PARENTERAL NUTRITION DOSING CLINICAL ONE (11:00)
[2019-04-27] MEDS ORDERED: [UNRECOGNIZED DRUG - OTHER] IV SCH (12:00)
[2019-04-27] MEDS ORDERED: [UNRECOGNIZED DRUG - OTHER] IV SCH (12:00)
[2019-04-27] MEDS ORDERED: AMINO ACIDS IV SCH ×2 (12:00)
[2019-04-27] MEDS ORDERED: SODIUM CHLORIDE IV SCH ×2 (12:00)
[2019-04-27 14:50] LABS: GLUCOSE,POINT OF CARE 106 MG/DL (70-110)
[2019-04-27 14:50] LABS: GLUCOSE,POINT OF CARE 137 MG/DL (70-110)
[2019-04-27] MEDS ORDERED: PPN SOLUTION 1 EA, SODIUM CHLORIDE 70 MEQ, SODIUM PHOS,M-BASIC-D-BASIC 30 MEQ, POTASSIU... IV SCH ×7 (22:00)
[2019-04-28] MEDS: ALBUTEROL SULFATE 2.5 MG/0.5 ML NEB SOLUTION NEB SCH ×8 (01:41→22:00)
[2019-04-28] MEDS: IPRATROPIUM BROMIDE 0.5 MG/2.5 ML NEB SOLUTION NEB SCH ×8 (01:41→22:00)
[2019-04-28 04:34] VITALS: BP 137/77
[2019-04-28] MEDS: SULFAMETHOX IV SCH ×4 (05:23→23:26)
[2019-04-28] MEDS: WATER IV SCH ×4 (05:23→23:26)
[2019-04-28] MEDS: TRIMETH IV SCH ×4 (05:23→23:26)
[2019-04-28] MEDS: DEXTROSE IV SCH ×4 (05:23→23:26)
[2019-04-28 05:42] LABS: BASOPHILS % (AUTO) 0.3 % (0.0-2.0); EOSINOPHILS % (AUTO) 0.1 % (1.0-6.0); HEMOGLOBIN 9.9 g/dL (13.5-17.5); LYMPHOCYTES # (AUTO) 0.6 K/uL (1.0-4.8); LYMPHOCYTES % (AUTO) 6.8 % (22.0-44.0); MEAN CORPUSCULAR HGB CONC 33.1 G/dL (31.0-37.0); MEAN CORPUSCULAR VOLUME 94 fL (80-100); MONOCYTES # (AUTO) 0.8 K/uL (0.1-1.0); MONOCYTES % (AUTO) 8.6 % (2.0-9.0); NEUTROPHILS # (AUTO) 7.6 K/uL (1.8-7.7); NEUTROPHILS % (AUTO) 84.2 % (40.0-70.0); PLATELET COUNT (AUTO) 260 K/uL (150-450); RED CELL DISTRIBUTION WIDTH 14.5 % (11.5-14.5)
[2019-04-28] MEDS: ONDANSETRON HCL 4 MG/2 ML VIAL IVP PRN (05:52)
[2019-04-28 05:57] LABS: ALANINE AMINOTRANSFERASE 65 U/L (12-78); ALKALINE PHOSPHATASE 63 U/L (46-116); ANION GAP 11 mmol/L (8-16); ASPARTATE AMINOTRANSFERASE 25 U/L (15-37); BILIRUBIN,TOTAL 0.7 mg/dL (0.1-1.0); CALCIUM, TOTAL 9.4 mg/dL (8.8-10.5); CARBON DIOXIDE 24 mmol/L (22-29); CHLORIDE 97 mmol/L (98-107); CREATININE 1.13 mg/dL (0.60-1.30); GLOMERULAR FILTR. RATE CALC > 60 mL/min (>60); GLUCOSE,RANDOM 118 mg/dL (70-110); POTASSIUM 4.4 mmol/L (3.5-5.1); SODIUM SERUM 132 mmol/L (136-145); TOTAL PROTEIN, SERUM 6.8 g/dL (6.4-8.2); UREA NITROGEN, BLOOD 22 mg/dL (7-18)
[2019-04-28 07:10] VITALS: BP 131/73
[2019-04-28] MEDS: BENZONATATE 100 MG CAPSULE PO SCH ×3 (07:58→23:26)
[2019-04-28] MEDS: METOCLOPRAMIDE HCL 5 MG/ML 2 ML VIAL IVP SCH ×3 (07:58→23:26)
[2019-04-28] MEDS: MethylPREDNISolone SOD SUCC 40 MG/ML VIAL IVP SCH ×2 (07:59→21:24)
[2019-04-28] MEDS: PANTOPRAZOLE SODIUM 40 MG/VIAL IVP SCH ×2 (07:59→21:24)
[2019-04-28] MEDS: HEPARIN SODIUM,PORCINE 5,000 UNITS/ML VIAL SQ SCH ×3 (07:59→23:26)
[2019-04-28] MEDS: DOCUSATE SODIUM 100 MG CAPSULE PO SCH ×2 (07:59→21:00)
[2019-04-28] MEDS ORDERED: MAGNESIUM SULFATE 1 GM in DEXTROSE 5%-WATER 50 ML IV ONE (08:15)
[2019-04-28 11:01] VITALS: BP 117/65
[2019-04-28 15:36] VITALS: BP 122/76
[2019-04-28 20:09] VITALS: BP 130/67
[2019-04-28] MEDS ORDERED: SODIUM CHLORIDE 0.9% 500 ML IV ONE (21:14)
[2019-04-28] MEDS: SODIUM CHLORIDE IV SCH ×7 (23:25)
[2019-04-28] MEDS: SODIUM PHOS M BASIC D BASIC IV SCH ×7 (23:25)
[2019-04-28] MEDS: [UNRECOGNIZED DRUG - OTHER] IV SCH ×7 (23:25)
[2019-04-28] MEDS: PPN IV SCH ×7 (23:25)
[2019-04-28 23:45] VITALS: BP 115/73
[2019-04-29] MEDS: ALBUTEROL SULFATE 2.5 MG/0.5 ML NEB SOLUTION NEB SCH ×7 (01:57→22:04)
[2019-04-29] MEDS: IPRATROPIUM BROMIDE 0.5 MG/2.5 ML NEB SOLUTION NEB SCH ×7 (01:57→22:04)
[2019-04-29] MEDS: ONDANSETRON HCL 4 MG/2 ML VIAL IVP PRN ×2 (02:29→19:35)
[2019-04-29 04:36] VITALS: BP 141/73
[2019-04-29] MEDS: WATER IV SCH ×3 (04:50→18:07)
[2019-04-29] MEDS: TRIMETH IV SCH ×3 (04:50→18:07)
[2019-04-29] MEDS: SULFAMETHOX IV SCH ×3 (04:50→18:07)
[2019-04-29] MEDS: DEXTROSE IV SCH ×3 (04:50→18:07)
[2019-04-29 05:41] LABS: BASOPHILS % (AUTO) 0.1 % (0.0-2.0); EOSINOPHILS % (AUTO) 0.1 % (1.0-6.0); HEMATOCRIT 32.8 % (41-53); HEMOGLOBIN 10.9 g/dL (13.5-17.5); LYMPHOCYTES # (AUTO) 0.6 K/uL (1.0-4.8); LYMPHOCYTES % (AUTO) 6.7 % (22.0-44.0); MEAN CORPUSCULAR HGB CONC 33.1 G/dL (31.0-37.0); MEAN CORPUSCULAR VOLUME 94 fL (80-100); MONOCYTES # (AUTO) 0.5 K/uL (0.1-1.0); MONOCYTES % (AUTO) 5.6 % (2.0-9.0); NEUTROPHILS # (AUTO) 8.1 K/uL (1.8-7.7); PLATELET COUNT (AUTO) 259 K/uL (150-450); RED CELL DISTRIBUTION WIDTH 14.7 % (11.5-14.5)
[2019-04-29 05:47] LABS: NEUTROPHILS % (AUTO) 87.5 % (40.0-70.0)
[2019-04-29 05:57] LABS: ANION GAP 11 mmol/L (8-16); CALCIUM, TOTAL 9.6 mg/dL (8.8-10.5); CARBON DIOXIDE 24 mmol/L (22-29); CHLORIDE 97 mmol/L (98-107); GLOMERULAR FILTR. RATE CALC > 60 mL/min (>60); GLUCOSE,RANDOM 114 mg/dL (70-110); PHOSPHORUS 3.9 mg/dL (2.5-4.9); POTASSIUM 4.6 mmol/L (3.5-5.1); SODIUM SERUM 132 mmol/L (136-145); UREA NITROGEN, BLOOD 26 mg/dL (7-18)
[2019-04-29] MEDS: METOCLOPRAMIDE HCL 5 MG/ML 2 ML VIAL IVP SCH ×3 (07:17→22:28)
[2019-04-29] MEDS: BENZONATATE 100 MG CAPSULE PO SCH ×3 (08:00→17:31)
[2019-04-29] MEDS: MethylPREDNISolone SOD SUCC 40 MG/ML VIAL IVP SCH (08:45)
[2019-04-29] MEDS: PANTOPRAZOLE SODIUM 40 MG/VIAL IVP SCH ×2 (08:45→19:41)
[2019-04-29] MEDS: HEPARIN SODIUM,PORCINE 5,000 UNITS/ML VIAL SQ SCH ×2 (08:46→17:32)
[2019-04-29] MEDS: DOCUSATE SODIUM 100 MG CAPSULE PO SCH ×2 (08:59→19:42)
[2019-04-29] MEDS ORDERED: BISACODYL 10 MG RECTAL RECTAL SUPPOSITORY PR SCH (10:45)
[2019-04-29 11:13] VITALS: BP 137/97
[2019-04-29 16:14] VITALS: BP 140/85
[2019-04-29 19:36] VITALS: BP 148/90
[2019-04-30] VITALS (7 sets, daily range): BP systolic 126–137; BP diastolic 64–79
[2019-04-30] MEDS: BENZONATATE 100 MG CAPSULE PO SCH ×4 (00:10→23:08)
[2019-04-30] MEDS: WATER IV SCH ×5 (00:10→23:04)
[2019-04-30] MEDS: DEXTROSE IV SCH ×5 (00:10→23:04)
[2019-04-30] MEDS: TRIMETH IV SCH ×5 (00:10→23:04)
[2019-04-30] MEDS: SULFAMETHOX IV SCH ×5 (00:10→23:04)
[2019-04-30] MEDS: HEPARIN SODIUM,PORCINE 5,000 UNITS/ML VIAL SQ SCH ×4 (00:10→23:08)
[2019-04-30] MEDS: IPRATROPIUM BROMIDE 0.5 MG/2.5 ML NEB SOLUTION NEB SCH ×9 (01:00→22:14)
[2019-04-30] MEDS: ALBUTEROL SULFATE 2.5 MG/0.5 ML NEB SOLUTION NEB SCH ×9 (01:00→22:14)
[2019-04-30] MEDS: ONDANSETRON HCL 4 MG/2 ML VIAL IVP PRN ×3 (01:52→20:47)
[2019-04-30] MEDS: SODIUM PHOS M BASIC D BASIC IV SCH ×14 (01:53→22:42)
[2019-04-30] MEDS: [UNRECOGNIZED DRUG - OTHER] IV SCH ×14 (01:53→22:42)
[2019-04-30] MEDS: PPN IV SCH ×14 (01:53→22:42)
[2019-04-30] MEDS: SODIUM CHLORIDE IV SCH ×14 (01:53→22:42)
[2019-04-30] MEDS: MethylPREDNISolone SOD SUCC 40 MG/ML VIAL IVP SCH (05:13)
[2019-04-30 05:50] LABS: BASOPHILS % (AUTO) 0.5 % (0.0-2.0); HEMATOCRIT 32.5 % (41-53); HEMOGLOBIN 10.7 g/dL (13.5-17.5); LYMPHOCYTES # (AUTO) 2.2 K/uL (1.0-4.8); LYMPHOCYTES % (AUTO) 18.7 % (22.0-44.0); MEAN CORPUSCULAR HEMOGLOBIN 30.8 pg (26.0-34.0); MEAN CORPUSCULAR HGB CONC 32.9 G/dL (31.0-37.0); MEAN CORPUSCULAR VOLUME 93 fL (80-100); MONOCYTES # (AUTO) 0.9 K/uL (0.1-1.0); MONOCYTES % (AUTO) 7.7 % (2.0-9.0); NEUTROPHILS # (AUTO) 8.5 K/uL (1.8-7.7); NEUTROPHILS % (AUTO) 72.1 % (40.0-70.0); PLATELET COUNT (AUTO) 258 K/uL (150-450); RED BLOOD CELL COUNT(AUTO) 3.48 MIL/uL (4.50-5.90); RED CELL DISTRIBUTION WIDTH 15.2 % (11.5-14.5)
[2019-04-30 06:07] LABS: ALBUMIN 3.4 g/dL (3.4-5.0); ANION GAP 12 mmol/L (8-16); CALCIUM, TOTAL 9.6 mg/dL (8.8-10.5); CARBON DIOXIDE 23 mmol/L (22-29); CHLORIDE 95 mmol/L (98-107); CREATININE 1.11 mg/dL (0.60-1.30); GLOMERULAR FILTR. RATE CALC > 60 mL/min (>60); GLUCOSE,RANDOM 88 mg/dL (70-110); POTASSIUM 4.2 mmol/L (3.5-5.1); SODIUM SERUM 130 mmol/L (136-145); UREA NITROGEN, BLOOD 27 mg/dL (7-18)
[2019-04-30] MEDS: DOCUSATE SODIUM 100 MG CAPSULE PO SCH ×2 (08:54→21:00)
[2019-04-30] MEDS: METOCLOPRAMIDE HCL 5 MG/ML 2 ML VIAL IVP SCH ×3 (08:55→23:08)
[2019-04-30] MEDS: PANTOPRAZOLE SODIUM 40 MG/VIAL IVP SCH ×2 (08:55→20:36)
[2019-04-30] MEDS: INSULIN LISPRO 100 UNITS/ML SQ PRN ×2 (12:04→17:48)
[2019-04-30 12:10] LABS: GLUCOMETER DEV NAME(LOC) 6N.2; GLUCOSE,POINT OF CARE 126 MG/DL (70-110)
[2019-04-30] MEDS: PHENOL 1.4% 177 ML SPRAY BOTTLE PO PRN ×2 (13:44→17:41)
[2019-04-30] MEDS ORDERED: SODIUM CHLORIDE 0.9% 250 ML IV ONE (23:53)
[2019-05-01] MEDS: IPRATROPIUM BROMIDE 0.5 MG/2.5 ML NEB SOLUTION NEB SCH ×8 (01:18→23:41)
[2019-05-01] MEDS: ALBUTEROL SULFATE 2.5 MG/0.5 ML NEB SOLUTION NEB SCH ×8 (01:18→23:41)
[2019-05-01 01:34] LABS: GLUCOMETER DEV NAME(LOC) 6N.2; GLUCOSE,POINT OF CARE 97 MG/DL (70-110)
[2019-05-01 01:34] LABS: GLUCOMETER DEV NAME(LOC) 6N.2; GLUCOSE,POINT OF CARE 71 MG/DL (70-110)
[2019-05-01 04:41] VITALS: BP 125/71
[2019-05-01] MEDS: TRIMETH IV SCH ×3 (05:07→20:48)
[2019-05-01] MEDS: SULFAMETHOX IV SCH ×3 (05:07→20:48)
[2019-05-01] MEDS: DEXTROSE IV SCH ×3 (05:07→20:48)
[2019-05-01] MEDS: WATER IV SCH ×3 (05:07→20:48)
[2019-05-01] MEDS: MethylPREDNISolone SOD SUCC 40 MG/ML VIAL IVP SCH (05:08)
[2019-05-01 05:25] LABS: BASOPHILS % (AUTO) 0.7 % (0.0-2.0); EOSINOPHILS % (AUTO) 1.5 % (1.0-6.0); HEMATOCRIT 30.8 % (41-53); HEMOGLOBIN 10.4 g/dL (13.5-17.5); LYMPHOCYTES # (AUTO) 1.4 K/uL (1.0-4.8); LYMPHOCYTES % (AUTO) 15.1 % (22.0-44.0); MEAN CORPUSCULAR HEMOGLOBIN 31.5 pg (26.0-34.0); MEAN CORPUSCULAR HGB CONC 33.6 G/dL (31.0-37.0); MEAN CORPUSCULAR VOLUME 94 fL (80-100); MONOCYTES # (AUTO) 0.6 K/uL (0.1-1.0); MONOCYTES % (AUTO) 6.5 % (2.0-9.0); NEUTROPHILS # (AUTO) 6.9 K/uL (1.8-7.7); NEUTROPHILS % (AUTO) 76.2 % (40.0-70.0); PLATELET COUNT (AUTO) 234 K/uL (150-450); RED BLOOD CELL COUNT(AUTO) 3.29 MIL/uL (4.50-5.90); RED CELL DISTRIBUTION WIDTH 15.4 % (11.5-14.5)
[2019-05-01 05:42] LABS: ALANINE AMINOTRANSFERASE 65 U/L (12-78); ALBUMIN 3.3 g/dL (3.4-5.0); ALKALINE PHOSPHATASE 64 U/L (46-116); ANION GAP 13 mmol/L (8-16); ASPARTATE AMINOTRANSFERASE 18 U/L (15-37); BILIRUBIN,TOTAL 0.4 mg/dL (0.1-1.0); CALCIUM, TOTAL 9.7 mg/dL (8.8-10.5); CARBON DIOXIDE 21 mmol/L (22-29); CHLORIDE 96 mmol/L (98-107); CREATININE 1.15 mg/dL (0.60-1.30); GLOMERULAR FILTR. RATE CALC > 60 mL/min (>60); GLUCOSE,RANDOM 92 mg/dL (70-110); POTASSIUM 4.2 mmol/L (3.5-5.1); SODIUM SERUM 130 mmol/L (136-145); TOTAL PROTEIN, SERUM 6.9 g/dL (6.4-8.2); UREA NITROGEN, BLOOD 25 mg/dL (7-18)
[2019-05-01 06:36] LABS: GLUCOMETER DEV NAME(LOC) 6N.2; GLUCOSE,POINT OF CARE 92 MG/DL (70-110)
[2019-05-01 07:30] VITALS: BP 123/80
[2019-05-01] MEDS: BENZONATATE 100 MG CAPSULE PO SCH ×3 (08:00→23:19)
[2019-05-01] MEDS: PANTOPRAZOLE SODIUM 40 MG/VIAL IVP SCH ×2 (08:24→23:00)
[2019-05-01] MEDS: DOCUSATE SODIUM 100 MG CAPSULE PO SCH ×2 (08:30→21:00)
[2019-05-01] MEDS: HEPARIN SODIUM,PORCINE 5,000 UNITS/ML VIAL SQ SCH ×3 (08:31→23:19)
[2019-05-01] MEDS: METOCLOPRAMIDE HCL 5 MG/ML 2 ML VIAL IVP SCH ×3 (08:31→23:19)
[2019-05-01] MEDS: PHENOL 1.4% 177 ML SPRAY BOTTLE PO PRN (08:52)
[2019-05-01 12:18] VITALS: BP 135/85
[2019-05-01] MEDS: ONDANSETRON HCL 4 MG/2 ML VIAL IVP PRN ×2 (12:24→22:44)
[2019-05-01 17:02] VITALS: BP 128/60
[2019-05-01 19:55] VITALS: BP 125/73
[2019-05-01 22:15] LABS: GLUCOMETER DEV NAME(LOC) 6N.2; GLUCOSE,POINT OF CARE 97 MG/DL (70-110)
[2019-05-01 22:15] LABS: GLUCOMETER DEV NAME(LOC) 6N.2; GLUCOSE,POINT OF CARE 85 MG/DL (70-110)
[2019-05-01 22:15] LABS: GLUCOMETER DEV NAME(LOC) 6N.2; GLUCOSE,POINT OF CARE 111 MG/DL (70-110)
[2019-05-01] MEDS: PPN SOLUTION 1 EA, SODIUM CHLORIDE 70 MEQ, SODIUM PHOS,M-BASIC-D-BASIC 30 MEQ, POTASSIU... IV SCH ×7 (22:44)
[2019-05-02] MEDS: IPRATROPIUM BROMIDE 0.5 MG/2.5 ML NEB SOLUTION NEB SCH ×7 (02:08→19:28)
[2019-05-02] MEDS: ALBUTEROL SULFATE 2.5 MG/0.5 ML NEB SOLUTION NEB SCH ×7 (02:08→19:28)
[2019-05-02] MEDS: TRIMETH IV SCH ×4 (02:29→20:32)
[2019-05-02] MEDS: WATER IV SCH ×4 (02:29→20:32)
[2019-05-02] MEDS: DEXTROSE IV SCH ×4 (02:29→20:32)
[2019-05-02] MEDS: SULFAMETHOX IV SCH ×4 (02:29→20:32)
[2019-05-02] MEDS: ONDANSETRON HCL 4 MG/2 ML VIAL IVP PRN ×4 (04:55→23:24)
[2019-05-02] MEDS: MethylPREDNISolone SOD SUCC 40 MG/ML VIAL IVP SCH (04:55)
[2019-05-02 05:03] VITALS: BP 131/75
[2019-05-02 07:20] LABS: BASOPHILS % (AUTO) 0.7 % (0.0-2.0); EOSINOPHILS % (AUTO) 1.5 % (1.0-6.0); HEMATOCRIT 31.7 % (41-53); HEMOGLOBIN 10.5 g/dL (13.5-17.5); LYMPHOCYTES # (AUTO) 0.5 K/uL (1.0-4.8); LYMPHOCYTES % (AUTO) 6.5 % (22.0-44.0); MEAN CORPUSCULAR HEMOGLOBIN 31.3 pg (26.0-34.0); MEAN CORPUSCULAR HGB CONC 33.2 G/dL (31.0-37.0); MEAN CORPUSCULAR VOLUME 94 fL (80-100); MONOCYTES # (AUTO) 0.3 K/uL (0.1-1.0); NEUTROPHILS # (AUTO) 6.9 K/uL (1.8-7.7); NEUTROPHILS % (AUTO) 87.3 % (40.0-70.0); PLATELET COUNT (AUTO) 241 K/uL (150-450); RED BLOOD CELL COUNT(AUTO) 3.37 MIL/uL (4.50-5.90); RED CELL DISTRIBUTION WIDTH 16.1 % (11.5-14.5)
[2019-05-02 07:28] VITALS: BP 129/91
[2019-05-02 07:41] LABS: ANION GAP 12 mmol/L (8-16); CALCIUM, TOTAL 9.6 mg/dL (8.8-10.5); CARBON DIOXIDE 22 mmol/L (22-29); CHLORIDE 96 mmol/L (98-107); CREATININE 1.11 mg/dL (0.60-1.30); GLOMERULAR FILTR. RATE CALC > 60 mL/min (>60); GLUCOSE,RANDOM 105 mg/dL (70-110); PHOSPHORUS 4.3 mg/dL (2.5-4.9); POTASSIUM 4.5 mmol/L (3.5-5.1); SODIUM SERUM 130 mmol/L (136-145); UREA NITROGEN, BLOOD 24 mg/dL (7-18)
[2019-05-02] MEDS: BENZONATATE 100 MG CAPSULE PO SCH ×3 (08:00→16:00)
[2019-05-02] MEDS: HEPARIN SODIUM,PORCINE 5,000 UNITS/ML VIAL SQ SCH ×3 (08:57→23:24)
[2019-05-02] MEDS: METOCLOPRAMIDE HCL 5 MG/ML 2 ML VIAL IVP SCH ×3 (08:58→23:23)
[2019-05-02] MEDS: DOCUSATE SODIUM 100 MG CAPSULE PO SCH ×2 (09:00→21:00)
[2019-05-02] MEDS: PHENOL 1.4% 177 ML SPRAY BOTTLE PO PRN ×2 (09:00→15:24)
[2019-05-02 10:19] LABS: FERRITIN 442 ng/mL (26-388)
[2019-05-02] MEDS ORDERED: SODIUM CHLORIDE 0.9% 250 ML IV ONE ×2 (10:24→20:35)
[2019-05-02] MEDS: PANTOPRAZOLE SODIUM 40 MG/VIAL IVP SCH ×2 (10:29→20:31)
[2019-05-02 11:13] VITALS: BP 127/71
[2019-05-02 11:36] LABS: % IRON SATURATION 23.3 % (30-44)
[2019-05-02 13:11] LABS: GLUCOMETER DEV NAME(LOC) 6N.2; GLUCOSE,POINT OF CARE 97 MG/DL (70-110)
[2019-05-02 13:11] LABS: GLUCOMETER DEV NAME(LOC) 6N.2; GLUCOSE,POINT OF CARE 109 MG/DL (70-110)
[2019-05-02 15:47] VITALS: BP 137/87
[2019-05-02 19:25] LABS: GLUCOMETER DEV NAME(LOC) 6N.2; GLUCOSE,POINT OF CARE 104 MG/DL (70-110)
[2019-05-02 19:43] VITALS: BP 135/62
[2019-05-02 22:11] LABS: GLUCOMETER DEV NAME(LOC) 6N.2; GLUCOSE,POINT OF CARE 79 MG/DL (70-110)
[2019-05-02] MEDS: PPN SOLUTION 1 EA, SODIUM CHLORIDE 70 MEQ, SODIUM PHOS,M-BASIC-D-BASIC 30 MEQ, POTASSIU... IV SCH ×7 (22:36)
[2019-05-02 23:14] VITALS: BP 129/74
[2019-05-03] MEDS: ALBUTEROL SULFATE 2.5 MG/0.5 ML NEB SOLUTION NEB SCH ×4 (01:59→20:19)
[2019-05-03] MEDS: IPRATROPIUM BROMIDE 0.5 MG/2.5 ML NEB SOLUTION NEB SCH ×4 (01:59→20:19)
[2019-05-03] MEDS: DEXTROSE IV SCH ×4 (02:12→20:33)
[2019-05-03] MEDS: TRIMETH IV SCH ×4 (02:12→20:33)
[2019-05-03] MEDS: SULFAMETHOX IV SCH ×4 (02:12→20:33)
[2019-05-03] MEDS: WATER IV SCH ×4 (02:12→20:33)
[2019-05-03 05:25] VITALS: BP 132/74
[2019-05-03] MEDS: MethylPREDNISolone SOD SUCC 40 MG/ML VIAL IVP SCH (05:29)
[2019-05-03] MEDS: ONDANSETRON HCL 4 MG/2 ML VIAL IVP PRN (06:03)
[2019-05-03 07:18] LABS: BASOPHILS % (AUTO) 0.9 % (0.0-2.0); HEMOGLOBIN 10.6 g/dL (13.5-17.5); LYMPHOCYTES # (AUTO) 0.5 K/uL (1.0-4.8); LYMPHOCYTES % (AUTO) 6.7 % (22.0-44.0); MEAN CORPUSCULAR HEMOGLOBIN 31.5 pg (26.0-34.0); MEAN CORPUSCULAR HGB CONC 33.1 G/dL (31.0-37.0); MEAN CORPUSCULAR VOLUME 95 fL (80-100); MONOCYTES # (AUTO) 0.3 K/uL (0.1-1.0); MONOCYTES % (AUTO) 4.4 % (2.0-9.0); PLATELET COUNT (AUTO) 233 K/uL (150-450); RED BLOOD CELL COUNT(AUTO) 3.37 MIL/uL (4.50-5.90); RED CELL DISTRIBUTION WIDTH 17.4 % (11.5-14.5)
[2019-05-03 07:30] LABS: ANION GAP 15 mmol/L (8-16); CALCIUM, TOTAL 9.6 mg/dL (8.8-10.5); CARBON DIOXIDE 21 mmol/L (22-29); CHLORIDE 95 mmol/L (98-107); CREATININE 1.14 mg/dL (0.60-1.30); GLOMERULAR FILTR. RATE CALC > 60 mL/min (>60); GLUCOSE,RANDOM 101 mg/dL (70-110); PHOSPHORUS 4.6 mg/dL (2.5-4.9); POTASSIUM 4.8 mmol/L (3.5-5.1); SODIUM SERUM 131 mmol/L (136-145); UREA NITROGEN, BLOOD 24 mg/dL (7-18)
[2019-05-03 07:31] VITALS: BP 137/84
[2019-05-03] MEDS: BENZONATATE 100 MG CAPSULE PO SCH ×3 (08:00→16:54)
[2019-05-03] MEDS: DOCUSATE SODIUM 100 MG CAPSULE PO SCH ×2 (09:00→21:00)
[2019-05-03] MEDS: METOCLOPRAMIDE HCL 5 MG/ML 2 ML VIAL IVP SCH ×3 (09:47→22:59)
[2019-05-03] MEDS: HEPARIN SODIUM,PORCINE 5,000 UNITS/ML VIAL SQ SCH ×3 (09:48→22:59)
[2019-05-03] MEDS: PANTOPRAZOLE SODIUM 40 MG/VIAL IVP SCH ×2 (09:48→20:33)
[2019-05-03] MEDS: PHENOL 1.4% 177 ML SPRAY BOTTLE PO PRN ×2 (09:55→15:33)
[2019-05-03 11:48] VITALS: BP 150/82
[2019-05-03 12:01] LABS: GLUCOMETER DEV NAME(LOC) 6N.2; GLUCOSE,POINT OF CARE 125 MG/DL (70-110)
[2019-05-03 12:01] LABS: GLUCOMETER DEV NAME(LOC) 6N.2; GLUCOSE,POINT OF CARE 91 MG/DL (70-110)
[2019-05-03 14:44] LABS: APPEARANCE,URINE CLEAR (CLEAR); BILIRUBIN,URINE NEGATIVE (NEGATIVE); GLUCOSE, URINE (UA) NEGATIVE (NEGATIVE); KETONES,URINE NEGATIVE (NEGATIVE); LEUKOCYTE ESTERASE ,URINE NEGATIVE (NEGATIVE); NITRATE,URINE NEGATIVE (NEGATIVE); OCCULT BLOOD,URINE NEGATIVE (NEGATIVE); PH,URINE 5.5 (5.0-8.0); UROBILINOGEN,URINE 0.2 mg/dL (<=1.0)
[2019-05-03 14:47] LABS: PROTEIN,URINE NEGATIVE (NEGATIVE)
[2019-05-03 15:21] VITALS: BP 146/85
[2019-05-03] MEDS ORDERED: IOVERSOL 350 MG/ML 100 ML VIAL ONE (15:40)
[2019-05-03 18:26] LABS: GLUCOMETER DEV NAME(LOC) 6N.2; GLUCOSE,POINT OF CARE 94 MG/DL (70-110)
[2019-05-03 20:13] VITALS: BP 136/84
[2019-05-03] MEDS: PPN IV SCH ×7 (22:25)
[2019-05-03] MEDS: SODIUM CHLORIDE IV SCH ×7 (22:25)
[2019-05-03] MEDS: [UNRECOGNIZED DRUG - OTHER] IV SCH ×7 (22:25)
[2019-05-03] MEDS: SODIUM PHOS M BASIC D BASIC IV SCH ×7 (22:25)
[2019-05-03 22:30] LABS: GLUCOMETER DEV NAME(LOC) 6N.2; GLUCOSE,POINT OF CARE 104 MG/DL (70-110)
[2019-05-04 00:18] VITALS: BP 132/77
[2019-05-04] MEDS: IPRATROPIUM BROMIDE 0.5 MG/2.5 ML NEB SOLUTION NEB SCH ×4 (02:00→20:14)
[2019-05-04] MEDS: ALBUTEROL SULFATE 2.5 MG/0.5 ML NEB SOLUTION NEB SCH ×4 (02:00→20:14)
[2019-05-04] MEDS: TRIMETH IV SCH ×2 (02:33→08:25)
[2019-05-04] MEDS: SULFAMETHOX IV SCH ×2 (02:33→08:25)
[2019-05-04] MEDS: DEXTROSE IV SCH ×2 (02:33→08:25)
[2019-05-04] MEDS: WATER IV SCH ×2 (02:33→08:25)
[2019-05-04] MEDS: ONDANSETRON HCL 4 MG/2 ML VIAL IVP PRN (03:18)
[2019-05-04 04:00] VITALS: BP 148/97
[2019-05-04 05:22] LABS: BASOPHILS % (AUTO) 1.3 % (0.0-2.0); EOSINOPHILS % (AUTO) 3.9 % (1.0-6.0); HEMATOCRIT 31.2 % (41-53); HEMOGLOBIN 10.3 g/dL (13.5-17.5); LYMPHOCYTES # (AUTO) 0.8 K/uL (1.0-4.8); LYMPHOCYTES % (AUTO) 14.3 % (22.0-44.0); MEAN CORPUSCULAR HEMOGLOBIN 31.4 pg (26.0-34.0); MEAN CORPUSCULAR VOLUME 95 fL (80-100); MONOCYTES # (AUTO) 0.5 K/uL (0.1-1.0); MONOCYTES % (AUTO) 9.2 % (2.0-9.0); NEUTROPHILS # (AUTO) 3.9 K/uL (1.8-7.7); NEUTROPHILS % (AUTO) 71.3 % (40.0-70.0); PLATELET COUNT (AUTO) 238 K/uL (150-450); RED BLOOD CELL COUNT(AUTO) 3.28 MIL/uL (4.50-5.90); RED CELL DISTRIBUTION WIDTH 17.7 % (11.5-14.5)
[2019-05-04] MEDS: MethylPREDNISolone SOD SUCC 40 MG/ML VIAL IVP SCH (05:37)
[2019-05-04 05:44] LABS: ALANINE AMINOTRANSFERASE 68 U/L (12-78); ALBUMIN 3.5 g/dL (3.4-5.0); ALKALINE PHOSPHATASE 68 U/L (46-116); ANION GAP 12 mmol/L (8-16); ASPARTATE AMINOTRANSFERASE 17 U/L (15-37); BILIRUBIN,TOTAL 0.4 mg/dL (0.1-1.0); CALCIUM, TOTAL 9.7 mg/dL (8.8-10.5); CARBON DIOXIDE 23 mmol/L (22-29); CHLORIDE 96 mmol/L (98-107); CREATININE 1.14 mg/dL (0.60-1.30); GLOMERULAR FILTR. RATE CALC > 60 mL/min (>60); GLUCOSE,RANDOM 88 mg/dL (70-110); PHOSPHORUS 4.2 mg/dL (2.5-4.9); POTASSIUM 4.5 mmol/L (3.5-5.1); SODIUM SERUM 131 mmol/L (136-145); TOTAL PROTEIN, SERUM 6.9 g/dL (6.4-8.2); UREA NITROGEN, BLOOD 20 mg/dL (7-18)
[2019-05-04] MEDS ORDERED: SUCRALFATE 1 GM/10 ML SUSPENSION UDCUP PO SCH (06:30)
[2019-05-04 07:21] VITALS: BP 139/72
[2019-05-04] MEDS: HEPARIN SODIUM,PORCINE 5,000 UNITS/ML VIAL SQ SCH ×3 (08:00→23:24)
[2019-05-04] MEDS: BENZONATATE 100 MG CAPSULE PO SCH ×3 (08:00→16:00)
[2019-05-04] MEDS: METOCLOPRAMIDE HCL 5 MG/ML 2 ML VIAL IVP SCH ×3 (08:21→23:24)
[2019-05-04] MEDS: PANTOPRAZOLE SODIUM 40 MG/VIAL IVP SCH ×2 (08:24→21:07)
[2019-05-04] MEDS: DOCUSATE SODIUM 100 MG CAPSULE PO SCH ×2 (08:48→21:00)
[2019-05-04] MEDS ORDERED: PROPOFOL 1% 20 ML VIAL IVP ONE (12:00)
[2019-05-04] MEDS ORDERED: LIDOCAINE/PF 2% 5 ML VIAL INJ ONE (12:00)
[2019-05-04 12:01] VITALS: BP 159/89
[2019-05-04] MEDS ORDERED: SODIUM CHLORIDE 0.9% 1,000 ML IV ONE ×2 (12:55→13:00)
[2019-05-04 14:48] LABS: LIPASE 959 U/L (73-393)
[2019-05-04] MEDS: ALBUTEROL SULFATE 2.5 MG/0.5 ML NEB SOLUTION NEB PRN (14:58)
[2019-05-04] MEDS: IPRATROPIUM BROMIDE 0.5 MG/2.5 ML NEB SOLUTION NEB PRN (14:58)
[2019-05-04 15:02] VITALS: BP 133/78
[2019-05-04 17:26] LABS: GLUCOMETER DEV NAME(LOC) 6N.2; GLUCOSE,POINT OF CARE 124 MG/DL (70-110)
[2019-05-04 17:26] LABS: GLUCOMETER DEV NAME(LOC) 6N.2; GLUCOSE,POINT OF CARE 82 MG/DL (70-110)
[2019-05-04 18:00] LABS: GLUCOMETER DEV NAME(LOC) 6N.2; GLUCOSE,POINT OF CARE 94 MG/DL (70-110)
[2019-05-04 19:50] VITALS: BP 142/76
[2019-05-04] MEDS: SODIUM PHOS M BASIC D BASIC IV SCH ×7 (22:35)
[2019-05-04] MEDS: [UNRECOGNIZED DRUG - OTHER] IV SCH ×7 (22:35)
[2019-05-04] MEDS: SODIUM CHLORIDE IV SCH ×7 (22:35)
[2019-05-04] MEDS: PPN IV SCH ×7 (22:35)
[2019-05-05] VITALS (7 sets, daily range): BP systolic 120–141; BP diastolic 68–86
[2019-05-05 00:55] LABS: GLUCOMETER DEV NAME(LOC) 6N.2; GLUCOSE,POINT OF CARE 81 MG/DL (70-110)
[2019-05-05] MEDS: ALBUTEROL SULFATE 2.5 MG/0.5 ML NEB SOLUTION NEB SCH ×4 (02:00→20:00)
[2019-05-05] MEDS: IPRATROPIUM BROMIDE 0.5 MG/2.5 ML NEB SOLUTION NEB SCH ×4 (02:00→20:00)
[2019-05-05] MEDS: MethylPREDNISolone SOD SUCC 40 MG/ML VIAL IVP SCH (05:46)
[2019-05-05 06:10] LABS: BASOPHILS % (AUTO) 1.4 % (0.0-2.0); EOSINOPHILS % (AUTO) 5.1 % (1.0-6.0); HEMATOCRIT 30.5 % (41-53); HEMOGLOBIN 10.5 g/dL (13.5-17.5); LYMPHOCYTES # (AUTO) 1.1 K/uL (1.0-4.8); LYMPHOCYTES % (AUTO) 19.4 % (22.0-44.0); MEAN CORPUSCULAR HEMOGLOBIN 32.9 pg (26.0-34.0); MEAN CORPUSCULAR HGB CONC 34.3 G/dL (31.0-37.0); MEAN CORPUSCULAR VOLUME 96 fL (80-100); MONOCYTES # (AUTO) 0.5 K/uL (0.1-1.0); MONOCYTES % (AUTO) 9.3 % (2.0-9.0); NEUTROPHILS # (AUTO) 3.5 K/uL (1.8-7.7); NEUTROPHILS % (AUTO) 64.8 % (40.0-70.0); PLATELET COUNT (AUTO) 247 K/uL (150-450); RED BLOOD CELL COUNT(AUTO) 3.18 MIL/uL (4.50-5.90); RED CELL DISTRIBUTION WIDTH 18.7 % (11.5-14.5)
[2019-05-05 06:24] LABS: ANION GAP 13 mmol/L (8-16); CALCIUM, TOTAL 9.4 mg/dL (8.8-10.5); CARBON DIOXIDE 23 mmol/L (22-29); CHLORIDE 98 mmol/L (98-107); CREATININE 1.17 mg/dL (0.60-1.30); GLOMERULAR FILTR. RATE CALC > 60 mL/min (>60); GLUCOSE,RANDOM 89 mg/dL (70-110); PHOSPHORUS 4.1 mg/dL (2.5-4.9); POTASSIUM 4.1 mmol/L (3.5-5.1); SODIUM SERUM 134 mmol/L (136-145); UREA NITROGEN, BLOOD 21 mg/dL (7-18)
[2019-05-05 06:35] LABS: GLUCOMETER DEV NAME(LOC) 6N.2; GLUCOSE,POINT OF CARE 90 MG/DL (70-110)
[2019-05-05] MEDS: METOCLOPRAMIDE HCL 5 MG/ML 2 ML VIAL IVP SCH ×3 (09:23→23:19)
[2019-05-05] MEDS: DOCUSATE SODIUM 100 MG CAPSULE PO SCH ×3 (09:24→20:01)
[2019-05-05] MEDS: BENZONATATE 100 MG CAPSULE PO SCH ×4 (09:24→23:20)
[2019-05-05] MEDS: PANTOPRAZOLE SODIUM 40 MG/VIAL IVP SCH ×2 (09:24→19:52)
[2019-05-05] MEDS: HEPARIN SODIUM,PORCINE 5,000 UNITS/ML VIAL SQ SCH ×3 (09:28→23:20)
[2019-05-05] MEDS: ALBUTEROL SULFATE 2.5 MG/0.5 ML NEB SOLUTION NEB PRN (11:40)
[2019-05-05] MEDS: IPRATROPIUM BROMIDE 0.5 MG/2.5 ML NEB SOLUTION NEB PRN (11:40)
[2019-05-05 12:30] LABS: GLUCOMETER DEV NAME(LOC) 6N.2; GLUCOSE,POINT OF CARE 98 MG/DL (70-110)
[2019-05-05 17:31] LABS: GLUCOMETER DEV NAME(LOC) 6N.2; GLUCOSE,POINT OF CARE 101 MG/DL (70-110)
[2019-05-05 21:20] LABS: GLUCOMETER DEV NAME(LOC) 6N.2; GLUCOSE,POINT OF CARE 94 MG/DL (70-110)
[2019-05-05] MEDS: PPN IV SCH ×7 (21:42)
[2019-05-05] MEDS: SODIUM CHLORIDE IV SCH ×7 (21:42)
[2019-05-05] MEDS: SODIUM PHOS M BASIC D BASIC IV SCH ×7 (21:42)
[2019-05-05] MEDS: [UNRECOGNIZED DRUG - OTHER] IV SCH ×7 (21:42)
[2019-05-06] MEDS: ALBUTEROL SULFATE 2.5 MG/0.5 ML NEB SOLUTION NEB SCH ×4 (02:00→21:04)
[2019-05-06] MEDS: IPRATROPIUM BROMIDE 0.5 MG/2.5 ML NEB SOLUTION NEB SCH ×4 (02:00→21:04)
[2019-05-06 05:54] LABS: BASOPHILS % (AUTO) 1.8 % (0.0-2.0); EOSINOPHILS % (AUTO) 4.8 % (1.0-6.0); HEMATOCRIT 30.8 % (41-53); HEMOGLOBIN 10.3 g/dL (13.5-17.5); LYMPHOCYTES # (AUTO) 1.2 K/uL (1.0-4.8); LYMPHOCYTES % (AUTO) 22.6 % (22.0-44.0); MEAN CORPUSCULAR HEMOGLOBIN 32.2 pg (26.0-34.0); MEAN CORPUSCULAR HGB CONC 33.4 G/dL (31.0-37.0); MEAN CORPUSCULAR VOLUME 96 fL (80-100); MONOCYTES # (AUTO) 0.6 K/uL (0.1-1.0); MONOCYTES % (AUTO) 10.9 % (2.0-9.0); NEUTROPHILS # (AUTO) 3.1 K/uL (1.8-7.7); NEUTROPHILS % (AUTO) 59.9 % (40.0-70.0); PLATELET COUNT (AUTO) 265 K/uL (150-450); RED CELL DISTRIBUTION WIDTH 19.1 % (11.5-14.5)
[2019-05-06 06:00] VITALS: BP 131/78
[2019-05-06] MEDS: MethylPREDNISolone SOD SUCC 40 MG/ML VIAL IVP SCH (06:11)
[2019-05-06 06:14] LABS: ANION GAP 10 mmol/L (8-16); CALCIUM, TOTAL 9.5 mg/dL (8.8-10.5); CARBON DIOXIDE 23 mmol/L (22-29); CHLORIDE 102 mmol/L (98-107); CREATININE 1.15 mg/dL (0.60-1.30); GLOMERULAR FILTR. RATE CALC > 60 mL/min (>60); GLUCOSE,RANDOM 112 mg/dL (70-110); SODIUM SERUM 135 mmol/L (136-145); UREA NITROGEN, BLOOD 26 mg/dL (7-18)
[2019-05-06 07:23] VITALS: BP 118/67
[2019-05-06] MEDS: PANTOPRAZOLE SODIUM 40 MG/VIAL IVP SCH (08:39)
[2019-05-06] MEDS: BENZONATATE 100 MG CAPSULE PO SCH ×2 (08:40→17:50)
[2019-05-06] MEDS: DOCUSATE SODIUM 100 MG CAPSULE PO SCH (08:40)
[2019-05-06] MEDS: HEPARIN SODIUM,PORCINE 5,000 UNITS/ML VIAL SQ SCH ×2 (08:40→17:50)
[2019-05-06] MEDS: METOCLOPRAMIDE HCL 5 MG/ML 2 ML VIAL IVP SCH (08:40)
[2019-05-06 11:07] VITALS: BP 130/74
[2019-05-06 11:41] LABS: GLUCOMETER DEV NAME(LOC) 6N.2; GLUCOSE,POINT OF CARE 102 MG/DL (70-110)
[2019-05-06] MEDS ORDERED: METOCLOPRAMIDE HCL 5 MG/ML 2 ML VIAL IVP PRN (12:45)
[2019-05-06] MEDS ORDERED: SODIUM CHLORIDE 0.9% 3,900 ML IV ONE (12:45)
[2019-05-06 16:21] VITALS: BP 142/90
[2019-05-06 18:01] LABS: GLUCOMETER DEV NAME(LOC) 6N.2; GLUCOSE,POINT OF CARE 130 MG/DL (70-110)
[2019-05-06 20:10] VITALS: BP 146/67
[2019-05-07] VITALS (7 sets, daily range): BP systolic 118–138; BP diastolic 61–84
[2019-05-07] MEDS: BENZONATATE 100 MG CAPSULE PO SCH ×4 (00:03→23:09)
[2019-05-07] MEDS: HEPARIN SODIUM,PORCINE 5,000 UNITS/ML VIAL SQ SCH ×4 (00:03→23:14)
[2019-05-07] MEDS: ALBUTEROL SULFATE 2.5 MG/0.5 ML NEB SOLUTION NEB SCH ×4 (01:55→20:14)
[2019-05-07] MEDS: IPRATROPIUM BROMIDE 0.5 MG/2.5 ML NEB SOLUTION NEB SCH ×4 (01:55→20:14)
[2019-05-07] MEDS: IPRATROPIUM BROMIDE 0.5 MG/2.5 ML NEB SOLUTION NEB PRN (04:29)
[2019-05-07] MEDS: ALBUTEROL SULFATE 2.5 MG/0.5 ML NEB SOLUTION NEB PRN (04:29)
[2019-05-07] MEDS: MethylPREDNISolone SOD SUCC 40 MG/ML VIAL IVP SCH (05:10)
[2019-05-07 06:46] LABS: ANION GAP 11 mmol/L (8-16); CALCIUM, TOTAL 9.4 mg/dL (8.8-10.5); CARBON DIOXIDE 22 mmol/L (22-29); CHLORIDE 106 mmol/L (98-107); CREATININE 0.91 mg/dL (0.60-1.30); GLOMERULAR FILTR. RATE CALC > 60 mL/min (>60); GLUCOSE,RANDOM 109 mg/dL (70-110); PHOSPHORUS 3.3 mg/dL (2.5-4.9); POTASSIUM 3.6 mmol/L (3.5-5.1); SODIUM SERUM 139 mmol/L (136-145); UREA NITROGEN, BLOOD 26 mg/dL (7-18)
[2019-05-07] MEDS: PANTOPRAZOLE SODIUM 40 MG DR TABLET PO SCH (08:00)
[2019-05-07] MEDS ORDERED: SODIUM CHLORIDE 0.9% 1,000 ML IV ONE (13:00)
[2019-05-07 18:30] LABS: GLUCOMETER DEV NAME(LOC) 6N.2; GLUCOSE,POINT OF CARE 103 MG/DL (70-110)
[2019-05-07 18:30] LABS: GLUCOMETER DEV NAME(LOC) 6N.2; GLUCOSE,POINT OF CARE 82 MG/DL (70-110)
[2019-05-07 18:30] LABS: GLUCOMETER DEV NAME(LOC) 6N.2; GLUCOSE,POINT OF CARE 115 MG/DL (70-110)
[2019-05-07 18:30] LABS: GLUCOMETER DEV NAME(LOC) 6N.2; GLUCOSE,POINT OF CARE 126 MG/DL (70-110)
[2019-05-08] MEDS: IPRATROPIUM BROMIDE 0.5 MG/2.5 ML NEB SOLUTION NEB SCH ×4 (02:36→19:52)
[2019-05-08] MEDS: ALBUTEROL SULFATE 2.5 MG/0.5 ML NEB SOLUTION NEB SCH ×4 (02:37→19:52)
[2019-05-08 04:44] VITALS: BP 141/78
[2019-05-08] MEDS: MethylPREDNISolone SOD SUCC 40 MG/ML VIAL IVP SCH (05:44)
[2019-05-08 06:26] LABS: ANION GAP 9 mmol/L (8-16); CALCIUM, TOTAL 9.3 mg/dL (8.8-10.5); CARBON DIOXIDE 22 mmol/L (22-29); CHLORIDE 109 mmol/L (98-107); CREATININE 0.89 mg/dL (0.60-1.30); GLOMERULAR FILTR. RATE CALC > 60 mL/min (>60); GLUCOSE,RANDOM 92 mg/dL (70-110); PHOSPHORUS 4.2 mg/dL (2.5-4.9); POTASSIUM 3.6 mmol/L (3.5-5.1); SODIUM SERUM 140 mmol/L (136-145); UREA NITROGEN, BLOOD 22 mg/dL (7-18)
[2019-05-08 07:40] VITALS: BP 137/77
[2019-05-08 07:45] LABS: GLUCOMETER DEV NAME(LOC) 6N.1; GLUCOSE,POINT OF CARE 87 MG/DL (70-110)
[2019-05-08] MEDS: PANTOPRAZOLE SODIUM 40 MG DR TABLET PO SCH (08:43)
[2019-05-08] MEDS: BENZONATATE 100 MG CAPSULE PO SCH ×3 (08:43→23:15)
[2019-05-08] MEDS: HEPARIN SODIUM,PORCINE 5,000 UNITS/ML VIAL SQ SCH ×3 (08:44→23:14)
[2019-05-08 11:15] VITALS: BP 144/84
[2019-05-08 16:50] LABS: GLUCOMETER DEV NAME(LOC) 6N.2; GLUCOSE,POINT OF CARE 108 MG/DL (70-110)
[2019-05-08 19:45] LABS: GLUCOMETER DEV NAME(LOC) 6N.2; GLUCOSE,POINT OF CARE 85 MG/DL (70-110)
[2019-05-08 19:55] VITALS: BP 134/76
[2019-05-08] MEDS: MAGNESIUM OXIDE 400 MG TABLET PO PRN (21:20)
[2019-05-08 21:46] LABS: GLUCOMETER DEV NAME(LOC) 6N.1; GLUCOSE,POINT OF CARE 102 MG/DL (70-110)
[2019-05-09 00:09] VITALS: BP 116/74
[2019-05-09] MEDS: MAGNESIUM OXIDE 400 MG TABLET PO PRN ×3 (00:14→11:46)
[2019-05-09] MEDS: IPRATROPIUM BROMIDE 0.5 MG/2.5 ML NEB SOLUTION NEB SCH ×3 (01:53→14:32)
[2019-05-09] MEDS: ALBUTEROL SULFATE 2.5 MG/0.5 ML NEB SOLUTION NEB SCH ×3 (01:53→14:32)
[2019-05-09 04:00] VITALS: BP 102/57
[2019-05-09] MEDS: MethylPREDNISolone SOD SUCC 40 MG/ML VIAL IVP SCH (04:27)
[2019-05-09 06:41] LABS: GLUCOMETER DEV NAME(LOC) 6N.1; GLUCOSE,POINT OF CARE 98 MG/DL (70-110)
[2019-05-09 07:15] VITALS: BP 141/91
[2019-05-09] MEDS: PANTOPRAZOLE SODIUM 40 MG DR TABLET PO SCH (08:04)
[2019-05-09] MEDS: BENZONATATE 100 MG CAPSULE PO SCH ×2 (08:04→16:12)
[2019-05-09] MEDS: HEPARIN SODIUM,PORCINE 5,000 UNITS/ML VIAL SQ SCH ×2 (08:05→16:12)
[2019-05-09 11:38] VITALS: BP 142/91
[2019-05-09 15:10] VITALS: BP 137/87
[2019-05-09] MEDS ORDERED: PNEUMOCOCCAL VACCINE POLYVALENT 0.5 ML VIAL [PPSV23] IM ONE (16:15)
[2019-05-09] MEDS ORDERED: PRED20 PO (16:54)
[2019-05-09] MEDS ORDERED: ALBU8HFA IH (16:55)
[2019-05-09 20:00] LABS: GLUCOMETER DEV NAME(LOC) 6N.1; GLUCOSE,POINT OF CARE 129 MG/DL (70-110)
[2019-05-09 20:00] LABS: GLUCOMETER DEV NAME(LOC) 6N.1; GLUCOSE,POINT OF CARE 79 MG/DL (70-110)
[2019-05-10] MEDS ORDERED: PredniSONE 20 MG TABLET PO SCH (09:00)
== END 2019-05-09 18:20 | disposition home or self-care (01) | DRG 720 ==
LOC: EMS 19:47 → 5S 04-09 04:26 → 5N 04-10 10:52 → ICU 04-10 23:36 → 5S 04-27 12:30 → 6N 04-29 12:55
PROVIDERS: ADMIT Hospitalist; ATTEND Hospitalist
PROC: 5A1955Z Respiratory Ventilation, Greater than 96 Consecutive Hours (ICD-10-PCS; principal; 2019-04-12)
PROC: 0BH17EZ Insertion of Endotracheal Airway into Trachea, Via Natural or Artificial Opening (ICD-10-PCS; 2019-04-12)
PROC: 05HY33Z Insertion of Infusion Device into Upper Vein, Percutaneous Approach (ICD-10-PCS; 2019-04-12)
PROC: B54MZZA Ultrasonography of Right Upper Extremity Veins, Guidance (ICD-10-PCS; 2019-04-12)
PROC: 0B9D8ZX Drainage of Right Middle Lung Lobe, Via Natural or Artificial Opening Endoscopic, Diagnostic (ICD-10-PCS; 2019-04-12)
PROC: 06HM33Z Insertion of Infusion Device into Right Femoral Vein, Percutaneous Approach (ICD-10-PCS; 2019-04-14)
PROC: B54BZZA Ultrasonography of Right Lower Extremity Veins, Guidance (ICD-10-PCS; 2019-04-14)
PROC: 05HY33Z Insertion of Infusion Device into Upper Vein, Percutaneous Approach (ICD-10-PCS; 2019-04-21)
PROC: B54MZZA Ultrasonography of Right Upper Extremity Veins, Guidance (ICD-10-PCS; 2019-04-21)
PROC: 5A09357 Assistance with Respiratory Ventilation, Less than 24 Consecutive Hours, Continuous Positive Airway Pressure (ICD-10-PCS; 2019-04-24)
PROC: 5A09357 Assistance with Respiratory Ventilation, Less than 24 Consecutive Hours, Continuous Positive Airway Pressure (ICD-10-PCS; 2019-04-25)
PROC: 5A09357 Assistance with Respiratory Ventilation, Less than 24 Consecutive Hours, Continuous Positive Airway Pressure (ICD-10-PCS; 2019-04-28)
PROC: 5A09357 Assistance with Respiratory Ventilation, Less than 24 Consecutive Hours, Continuous Positive Airway Pressure (ICD-10-PCS; 2019-04-29)
PROC: 5A09357 Assistance with Respiratory Ventilation, Less than 24 Consecutive Hours, Continuous Positive Airway Pressure (ICD-10-PCS; 2019-04-30)
PROC: 5A09357 Assistance with Respiratory Ventilation, Less than 24 Consecutive Hours, Continuous Positive Airway Pressure (ICD-10-PCS; 2019-04-30)
PROC: 0DB68ZX Excision of Stomach, Via Natural or Artificial Opening Endoscopic, Diagnostic (ICD-10-PCS; 2019-05-04)
PROC: 0DP07UZ Removal of Feeding Device from Upper Intestinal Tract, Via Natural or Artificial Opening (ICD-10-PCS; 2019-05-04)
PROC: 3E0234Z Introduction of Serum, Toxoid and Vaccine into Muscle, Percutaneous Approach (ICD-10-PCS; 2019-05-09)
DX: A41.9 Sepsis, unspecified organism (principal); J96.01 Acute respiratory failure with hypoxia; N17.0 Acute kidney failure with tubular necrosis; J18.1 Lobar pneumonia, unspecified organism; K31.84 Gastroparesis; E11.65 Type 2 diabetes mellitus with hyperglycemia; E66.01 Morbid (severe) obesity due to excess calories; E11.43 Type 2 diabetes mellitus with diabetic autonomic (poly)neuropathy; D64.9 Anemia, unspecified; R65.20 Severe sepsis without septic shock; E87.6 Hypokalemia; F41.9 Anxiety disorder, unspecified; E78.5 Hyperlipidemia, unspecified; E83.42 Hypomagnesemia; E87.1 Hypo-osmolality and hyponatremia; E87.5 Hyperkalemia; E78.00 Pure hypercholesterolemia, unspecified; F12.90 Cannabis use, unspecified, uncomplicated; F32.9 Major depressive disorder, single episode, unspecified; I10 Essential (primary) hypertension; J02.9 Acute pharyngitis, unspecified; K44.9 Diaphragmatic hernia without obstruction or gangrene; K56.7 Ileus, unspecified; Z80.8 Family history of malignant neoplasm of other organs or systems; Z68.52 Body mass index [BMI] pediatric, 5th percentile to less than 85th percentile for age; Z23 Encounter for immunization; R31.9 Hematuria, unspecified
CPT/HCPCS: 31624; 36245; 36569; 36600; 70450; 71260; 71275; 72193; 74018; 74019; 74160; 74177; 76870; 76937; 80307; 82570; 82728; 82805; 83036; 83540; 83550; 83605; 83615; 83735; 83935; 84100; 84132; 84145; 84300; 84443; 84540; 86038; 86160; 86162; 86171; 86256; 86308; 86480; 86631; 86632; 86635; 86644; 86645; 86698; 86738; 87015; 87040; 87070; 87081; 87101; 87205; 87206; 87220; 87252; 87324; 87385; 87389; 87430; 87449; 87804; 87899; 88305; 88312; 88313; 90732; 92526; 92610; 93005; 94002; 94003; 94640; 94660; 97110; 97116; 97140; 97163; 97167; 97530; 97535; 99291; C9113; G0238; G0378; J0456; J0610; J0696; J1450; J1644; J1815; J1885; J1940; J2020; J2060; J2270; J2405; J2543; J2704; J2765; J2920; J2930; J3010; J3370; J3475; J3480; J3490; J7030; J7040; J7050; J7060; J7070; J7120; J7131

== ENCOUNTER 2019-11-03 06:28 | Inpatient (IN) | payer MEDICAID, OTHER ==
[~2019-11-03] VITALS: Ht 182.9 cm; Wt 135.9 kg
[~2019-11-03 06:28] MED LIST: ALBU8HFA IH; PRED20 PO
[2019-11-03] MEDS ORDERED: SODIUM CHLORIDE 0.9% 4,100 ML IV ONE (06:38)
[2019-11-03] MEDS ORDERED: 0.9% SODIUM CHLORIDE 10 ML SYRINGE IVP PRN (06:45)
[2019-11-03] MEDS ORDERED: IPRATROPIUM BROMIDE 0.5 MG/2.5 ML NEB SOLUTION NEB ONE (06:45)
[2019-11-03] MEDS ORDERED: ACETAMINOPHEN 1000 MG/ISO-OSM 100 ML IV ONE (06:45)
[2019-11-03] MEDS ORDERED: ALBUTEROL SULFATE 2.5 MG/0.5 ML NEB SOLUTION NEB ONE (06:45)
[2019-11-03 07:01] LABS: BASOPHILS % (AUTO) 0.2 % (0.0-2.0); EOSINOPHILS % (AUTO) 0.1 % (1.0-6.0); HEMATOCRIT 34.8 % (41-53); HEMOGLOBIN 12.1 g/dL (13.5-17.5); LYMPHOCYTES % (AUTO) 5.8 % (22.0-44.0); MEAN CORPUSCULAR HEMOGLOBIN 30.4 pg (26.0-34.0); MEAN CORPUSCULAR HGB CONC 34.7 G/dL (31.0-37.0); MEAN CORPUSCULAR VOLUME 88 fL (80-100); MONOCYTES # (AUTO) 0.5 K/uL (0.1-1.0); MONOCYTES % (AUTO) 2.6 % (2.0-9.0); NEUTROPHILS # (AUTO) 16.2 K/uL (1.8-7.7); PLATELET COUNT (AUTO) 479 K/uL (150-450); RED BLOOD CELL COUNT(AUTO) 3.97 MIL/uL (4.50-5.90); RED CELL DISTRIBUTION WIDTH 14.1 % (11.5-14.5)
[2019-11-03 07:05] LABS: NEUTROPHILS % (AUTO) 91.3 % (40.0-70.0)
[2019-11-03 07:12] LABS: INR 1.4 (0.9-1.1)
[2019-11-03] MEDS ORDERED: ONDANSETRON HCL 4 MG/2 ML VIAL IVP ONE (07:15)
[2019-11-03] MEDS ORDERED: VANCOMYCIN HCL 1 GM/D5% WATER 200 ML IV ONE (07:15)
[2019-11-03] MEDS ORDERED: PIPERACILLIN/TAZO 3.375 GM/D5W 50 ML IV ONE (07:15)
[2019-11-03 07:22] LABS: LACTIC ACID 1.2 mmol/L (0.4-2.0)
[2019-11-03 07:34] LABS: ANION GAP 14 mmol/L (8-16); CALCIUM, TOTAL 9.4 mg/dL (8.8-10.5); CARBON DIOXIDE 22 mmol/L (22-29); CHLORIDE 97 mmol/L (98-107); CREATININE 1.08 mg/dL (0.60-1.30); GLOMERULAR FILTR. RATE CALC > 60 mL/min (>60); GLUCOSE,RANDOM 124 mg/dL (70-110); POTASSIUM 3.1 mmol/L (3.5-5.1); SODIUM SERUM 133 mmol/L (136-145); UREA NITROGEN, BLOOD 13 mg/dL (7-18)
[2019-11-03 07:38] LABS: ALANINE AMINOTRANSFERASE 30 U/L (12-78); ALBUMIN 3.3 g/dL (3.4-5.0); ALKALINE PHOSPHATASE 107 U/L (46-116); ASPARTATE AMINOTRANSFERASE 17 U/L (15-37); BILIRUBIN,TOTAL 2.6 mg/dL (0.1-1.0); TOTAL PROTEIN, SERUM 8.4 g/dL (6.4-8.2)
[2019-11-03 07:50] LABS: INFLUENZA TYPE A NEGATIVE FOR TYPE A (NEGATIVE); INFLUENZA TYPE B NEGATIVE FOR TYPE B (NEGATIVE)
[2019-11-03] MEDS ORDERED: POTASSIUM CHLORIDE 20 MEQ ER TABLET PO ONE (08:00)
[2019-11-03] MEDS ORDERED: MethylPREDNISolone SOD SUCC 125 MG/2 ML VIAL IVP ONE (08:15)
[2019-11-03 08:24] LABS: ABG A-A DIFF O2 112.5 mmHg (10-20.0); ABG BASE EXCESS -5.5 mmol/L (-2.0-3.0); ABG CARBOXYHEMOGLOBIN 0.1 % (0.0-3.0); ABG HCO3 20.9 mmol/L (22.0-26.0); ABG METHEMOGLOBIN 0.5 % (0.0-1.5); ABG OXYGEN CONTENT 14.9 mL/dL (15.0-23.0); ABG OXYGEN SATURATION 97.7 % (95.0-98.0); ABG OXYHEMOGLOBIN 97.1 % (94.0-100.0); ABG PCO2 26 mmHg (35-45); ABG PH 7.469 (7.350-7.450); ABG TOTAL HEMOGLOBIN 10.8 G/dL (12.0-18.0); PO2, ARTERIAL BG 107.5 mmHg (80.0-100.0); SOURCE, BLOOD GAS ARTERIAL; TEMPERATURE, FAHRENHEIT, BG 98.3 FAHREN (96.0-98.6)
[2019-11-03 09:32] LABS: APPEARANCE,URINE CLEAR (CLEAR); GLUCOSE, URINE (UA) NEGATIVE (NEGATIVE); KETONES,URINE >=80 mg/dL (NEGATIVE); LEUKOCYTE ESTERASE ,URINE NEGATIVE (NEGATIVE); NITRATE,URINE NEGATIVE (NEGATIVE); PH,URINE 5.5 (5.0-8.0); PROTEIN,URINE SEE CONFIRM (NEGATIVE)
[2019-11-03 09:41] LABS: AMPHET/METH SCREEN,URINE NEGATIVE (NEGATIVE); BARBITURATE SCREEN, URINE NEGATIVE (NEGATIVE); BENZODIAZEPINES SCREEN,URINE NEGATIVE (NEGATIVE); CANNABINOID SCREEN,URINE POSITIVE (NEGATIVE); COCAINE SCREEN,URINE NEGATIVE (NEGATIVE); METHADONE SCREEN, URINE NEGATIVE (NEGATIVE); OPIATE SCREEN,URINE NEGATIVE (NEGATIVE); PHENCYCLIDINE SCREEN,URINE NEGATIVE (NEGATIVE)
[2019-11-03 09:44] LABS: BILIRUBIN,URINE PRELIM. POSITIVE (NEGATIVE); OCCULT BLOOD,URINE TRACE (NEGATIVE)
[2019-11-03 09:45] LABS: BACTERIA,URINE None Seen /HPF (None Seen); COARSE GRANULAR CASTS,URINE 0-2 /LPF (None Seen); RBC,URINE 0-2 /HPF (0-2); SULFOSALICYLIC ACID,URINE 3+ (Negative); WBC,URINE None Seen /HPF (0-5)
[2019-11-03] MEDS ORDERED: IPRATROPIUM BROMIDE 0.5 MG/2.5 ML NEB SOLUTION NEB PRN (09:45)
[2019-11-03] MEDS ORDERED: DOCUSATE SODIUM 100 MG CAPSULE PO PRN (09:45)
[2019-11-03] MEDS ORDERED: ALBUTEROL SULFATE 2.5 MG/0.5 ML NEB SOLUTION NEB PRN (09:45)
[2019-11-03] MEDS ORDERED: BISACODYL 10 MG RECTAL RECTAL SUPPOSITORY PR PRN (09:45)
[2019-11-03] MEDS ORDERED: ONDANSETRON HCL 4 MG/2 ML VIAL IVP PRN ×2 (09:45→10:00)
[2019-11-03] MEDS ORDERED: MAGNESIUM HYDROXIDE SUSPENSION 30 ML UDCUP PO PRN (09:45)
[2019-11-03] MEDS ORDERED: ACETAMINOPHEN 325 MG TABLET PO PRN (10:00)
[2019-11-03 10:54] VITALS: BP 126/81
[2019-11-03 11:19] LABS: O2 DEVICE,BLOOD GAS BIPAP (ROOM AIR); SITE, BLOOD GAS RT RADIAL; SPONTANEOUS VT, BG 709 ml
[2019-11-03 11:20] LABS: INSPIRATORY TIME, BG 1 SEC
[2019-11-03] MEDS: MethylPREDNISolone SOD SUCC 40 MG/ML VIAL IVP SCH ×2 (11:46→18:27)
[2019-11-03] MEDS: PANTOPRAZOLE SODIUM 40 MG DR TABLET PO SCH (11:46)
[2019-11-03 12:53] LABS: GLUCOMETER DEV NAME(LOC) 5S.1; GLUCOSE,POINT OF CARE 135 MG/DL (70-110)
[2019-11-03] MEDS: ALBUTEROL SULFATE 2.5 MG/0.5 ML NEB SOLUTION NEB SCH ×3 (14:00→20:11)
[2019-11-03] MEDS: IPRATROPIUM BROMIDE 0.5 MG/2.5 ML NEB SOLUTION NEB SCH ×3 (14:00→20:11)
[2019-11-03] MEDS: PIPERACILLIN/TAZO 3.375 GM/D5W 50 ML IV SCH ×2 (14:56→20:28)
[2019-11-03] MEDS ORDERED: IOVERSOL 350 MG/ML 150 ML VIAL ONE (15:51)
[2019-11-03] MEDS ORDERED: SODIUM CHLORIDE 0.9% 100 ML ONE (15:51)
[2019-11-03 16:08] VITALS: BP 140/78
[2019-11-03] MEDS ORDERED: INFLUENZA VIRUS VACCINE QVS 2019-20 (3YR+)/PF 60 MCG/0.5 ML SYRINGE IM ONE (17:30)
[2019-11-03 20:06] VITALS: BP 146/91
[2019-11-03] MEDS: HEPARIN SODIUM,PORCINE 5,000 UNITS/ML VIAL SQ SCH (20:28)
[2019-11-03] MEDS ORDERED: VANCOMYCIN HCL 1.5 GM in DEXTROSE 5%-WATER 250 ML IV ONE (22:00)
[2019-11-04] VITALS (7 sets, daily range): BP systolic 117–140; BP diastolic 54–78
[2019-11-04] MEDS: MethylPREDNISolone SOD SUCC 40 MG/ML VIAL IVP SCH ×4 (00:23→18:18)
[2019-11-04] MEDS: TEMAZEPAM 15 MG CAPSULE PO PRN (00:33)
[2019-11-04] MEDS: IPRATROPIUM BROMIDE 0.5 MG/2.5 ML NEB SOLUTION NEB SCH ×4 (02:00→20:48)
[2019-11-04] MEDS: ALBUTEROL SULFATE 2.5 MG/0.5 ML NEB SOLUTION NEB SCH ×4 (02:00→20:48)
[2019-11-04] MEDS: PIPERACILLIN/TAZO 3.375 GM/D5W 50 ML IV SCH ×4 (03:20→20:43)
[2019-11-04] MEDS: ACETAMINOPHEN 325 MG TABLET PO PRN ×2 (05:08→11:44)
[2019-11-04 06:32] LABS: EOSINOPHILS % (AUTO) 0 % (1.0-6.0); HEMOGLOBIN 11.4 g/dL (13.5-17.5); LYMPHOCYTES # (AUTO) 0.6 K/uL (1.0-4.8); LYMPHOCYTES % (AUTO) 3.4 % (22.0-44.0); MEAN CORPUSCULAR HEMOGLOBIN 30.4 pg (26.0-34.0); MEAN CORPUSCULAR HGB CONC 34.5 G/dL (31.0-37.0); MEAN CORPUSCULAR VOLUME 88 fL (80-100); MONOCYTES # (AUTO) 0.3 K/uL (0.1-1.0); MONOCYTES % (AUTO) 1.8 % (2.0-9.0); NEUTROPHILS # (AUTO) 16.8 K/uL (1.8-7.7); PLATELET COUNT (AUTO) 512 K/uL (150-450); RED BLOOD CELL COUNT(AUTO) 3.74 MIL/uL (4.50-5.90); RED CELL DISTRIBUTION WIDTH 14.3 % (11.5-14.5)
[2019-11-04 06:45] LABS: ALANINE AMINOTRANSFERASE 46 U/L (12-78); ALBUMIN 2.7 g/dL (3.4-5.0); ALKALINE PHOSPHATASE 112 U/L (46-116); ANION GAP 11 mmol/L (8-16); ASPARTATE AMINOTRANSFERASE 31 U/L (15-37); BILIRUBIN,TOTAL 0.7 mg/dL (0.1-1.0); CALCIUM, TOTAL 9.2 mg/dL (8.8-10.5); CARBON DIOXIDE 25 mmol/L (22-29); CHLORIDE 105 mmol/L (98-107); CREATININE 1.03 mg/dL (0.60-1.30); GLOMERULAR FILTR. RATE CALC > 60 mL/min (>60); GLUCOSE,RANDOM 149 mg/dL (70-110); HEMOGLOBIN A1C 5.6 % (4.5-6.2); POTASSIUM 3.7 mmol/L (3.5-5.1); SODIUM SERUM 141 mmol/L (136-145); TOTAL PROTEIN, SERUM 6.7 g/dL (6.4-8.2); UREA NITROGEN, BLOOD 14 mg/dL (7-18)
[2019-11-04 06:52] LABS: NEUTROPHILS % (AUTO) 94.8 % (40.0-70.0)
[2019-11-04] MEDS: VANCOMYCIN HCL 1.5 GM in DEXTROSE 5%-WATER 250 ML IV SCH ×3 (07:55→23:07)
[2019-11-04] MEDS: HEPARIN SODIUM,PORCINE 5,000 UNITS/ML VIAL SQ SCH ×2 (08:02→20:44)
[2019-11-04] MEDS: PANTOPRAZOLE SODIUM 40 MG DR TABLET PO SCH (08:02)
[2019-11-04] MEDS: HYDROCODONE/CHLORPHEN POLIS 10-8 MG/5 ML ORAL.SYG PO SCH ×2 (14:59→21:14)
[2019-11-04] MEDS: BENZONATATE 100 MG CAPSULE PO SCH (15:44)
[2019-11-04] MEDS ORDERED: SODIUM CHLORIDE 0.9% 1,000 ML ONE (20:26)
[2019-11-05] MEDS: BENZONATATE 100 MG CAPSULE PO SCH ×4 (01:04→23:58)
[2019-11-05] MEDS: MethylPREDNISolone SOD SUCC 40 MG/ML VIAL IVP SCH ×5 (01:05→23:58)
[2019-11-05] MEDS: PIPERACILLIN/TAZO 3.375 GM/D5W 50 ML IV SCH ×4 (01:29→20:00)
[2019-11-05] MEDS: IPRATROPIUM BROMIDE 0.5 MG/2.5 ML NEB SOLUTION NEB SCH ×4 (02:31→20:39)
[2019-11-05] MEDS: ALBUTEROL SULFATE 2.5 MG/0.5 ML NEB SOLUTION NEB SCH ×4 (02:31→20:39)
[2019-11-05 05:23] VITALS: BP 123/56
[2019-11-05] MEDS: VANCOMYCIN HCL 1.5 GM in DEXTROSE 5%-WATER 250 ML IV SCH ×2 (06:47→15:55)
[2019-11-05 07:30] LABS: ANION GAP 7 mmol/L (8-16); CALCIUM, TOTAL 8.8 mg/dL (8.8-10.5); CARBON DIOXIDE 29 mmol/L (22-29); CHLORIDE 103 mmol/L (98-107); CREATININE 1.06 mg/dL (0.60-1.30); GLOMERULAR FILTR. RATE CALC > 60 mL/min (>60); GLUCOSE,RANDOM 211 mg/dL (70-110); POTASSIUM 3.6 mmol/L (3.5-5.1); SODIUM SERUM 139 mmol/L (136-145); UREA NITROGEN, BLOOD 16 mg/dL (7-18); VANCOMYCIN,RANDOM 16.6 mcg/mL (25.0-50.0)
[2019-11-05 07:51] VITALS: BP 133/64
[2019-11-05] MEDS: HYDROCODONE/CHLORPHEN POLIS 10-8 MG/5 ML ORAL.SYG PO SCH ×2 (08:14→23:58)
[2019-11-05] MEDS: HEPARIN SODIUM,PORCINE 5,000 UNITS/ML VIAL SQ SCH ×2 (08:14→23:57)
[2019-11-05] MEDS: PANTOPRAZOLE SODIUM 40 MG DR TABLET PO SCH (08:15)
[2019-11-05 15:58] VITALS: BP 144/69
[2019-11-05 20:03] VITALS: BP 123/65
[2019-11-06 00:08] VITALS: BP 141/82
[2019-11-06] MEDS: VANCOMYCIN HCL 1.5 GM in DEXTROSE 5%-WATER 250 ML IV SCH ×3 (00:49→16:38)
[2019-11-06] MEDS: PIPERACILLIN/TAZO 3.375 GM/D5W 50 ML IV SCH ×3 (03:17→21:17)
[2019-11-06] MEDS: ALBUTEROL SULFATE 2.5 MG/0.5 ML NEB SOLUTION NEB SCH ×4 (03:42→20:47)
[2019-11-06] MEDS: IPRATROPIUM BROMIDE 0.5 MG/2.5 ML NEB SOLUTION NEB SCH ×4 (03:42→20:47)
[2019-11-06 04:42] VITALS: BP 138/64
[2019-11-06] MEDS: MethylPREDNISolone SOD SUCC 40 MG/ML VIAL IVP SCH ×4 (06:58→23:59)
[2019-11-06 07:33] VITALS: BP 134/67
[2019-11-06 07:52] LABS: ANION GAP 6 mmol/L (8-16); CALCIUM, TOTAL 8.9 mg/dL (8.8-10.5); CARBON DIOXIDE 31 mmol/L (22-29); CHLORIDE 100 mmol/L (98-107); CREATININE 0.96 mg/dL (0.60-1.30); GLOMERULAR FILTR. RATE CALC > 60 mL/min (>60); GLUCOSE,RANDOM 149 mg/dL (70-110); POTASSIUM 3.5 mmol/L (3.5-5.1); SODIUM SERUM 137 mmol/L (136-145); UREA NITROGEN, BLOOD 15 mg/dL (7-18)
[2019-11-06] MEDS: HEPARIN SODIUM,PORCINE 5,000 UNITS/ML VIAL SQ SCH ×2 (08:39→21:17)
[2019-11-06] MEDS: PANTOPRAZOLE SODIUM 40 MG DR TABLET PO SCH (08:40)
[2019-11-06] MEDS: BENZONATATE 100 MG CAPSULE PO SCH ×3 (08:41→23:59)
[2019-11-06] MEDS: HYDROCODONE/CHLORPHEN POLIS 10-8 MG/5 ML ORAL.SYG PO SCH ×3 (08:42→23:59)
[2019-11-06 11:13] VITALS: BP 134/71
[2019-11-06 15:26] VITALS: BP 118/62
[2019-11-06 20:16] VITALS: BP 116/79
[2019-11-07 00:02] VITALS: BP 126/66
[2019-11-07] MEDS: IPRATROPIUM BROMIDE 0.5 MG/2.5 ML NEB SOLUTION NEB SCH ×4 (01:51→19:55)
[2019-11-07] MEDS: ALBUTEROL SULFATE 2.5 MG/0.5 ML NEB SOLUTION NEB SCH ×4 (01:51→19:55)
[2019-11-07] MEDS: PIPERACILLIN/TAZO 3.375 GM/D5W 50 ML IV SCH ×4 (02:25→20:11)
[2019-11-07] MEDS: MethylPREDNISolone SOD SUCC 40 MG/ML VIAL IVP SCH ×4 (06:21→23:27)
[2019-11-07 06:27] VITALS: BP 143/81
[2019-11-07 07:59] LABS: ANION GAP 9 mmol/L (8-16); CARBON DIOXIDE 30 mmol/L (22-29); CHLORIDE 97 mmol/L (98-107); CREATININE 1.01 mg/dL (0.60-1.30); GLOMERULAR FILTR. RATE CALC > 60 mL/min (>60); GLUCOSE,RANDOM 130 mg/dL (70-110); POTASSIUM 3.8 mmol/L (3.5-5.1); SODIUM SERUM 136 mmol/L (136-145); UREA NITROGEN, BLOOD 15 mg/dL (7-18)
[2019-11-07 08:31] VITALS: BP 108/87
[2019-11-07] MEDS: BENZONATATE 100 MG CAPSULE PO SCH ×3 (08:42→23:27)
[2019-11-07] MEDS: PANTOPRAZOLE SODIUM 40 MG DR TABLET PO SCH (08:42)
[2019-11-07] MEDS: HEPARIN SODIUM,PORCINE 5,000 UNITS/ML VIAL SQ SCH ×2 (08:42→20:11)
[2019-11-07 09:10] LABS: VANCOMYCIN,RANDOM 16.9 mcg/mL (25.0-50.0)
[2019-11-07] MEDS: VANCOMYCIN HCL 1.5 GM in DEXTROSE 5%-WATER 250 ML IV SCH ×5 (09:46→23:29)
[2019-11-07] MEDS: HYDROCODONE/CHLORPHEN POLIS 10-8 MG/5 ML ORAL.SYG PO SCH ×3 (09:46→23:27)
[2019-11-07 11:23] LABS: EOSINOPHILS % (AUTO) 0 % (1.0-6.0); HEMATOCRIT 34.6 % (41-53); HEMOGLOBIN 11.6 g/dL (13.5-17.5); LYMPHOCYTES # (AUTO) 0.7 K/uL (1.0-4.8); LYMPHOCYTES % (AUTO) 4.4 % (22.0-44.0); MEAN CORPUSCULAR HEMOGLOBIN 30.1 pg (26.0-34.0); MEAN CORPUSCULAR HGB CONC 33.4 G/dL (31.0-37.0); MEAN CORPUSCULAR VOLUME 90 fL (80-100); MONOCYTES # (AUTO) 0.3 K/uL (0.1-1.0); MONOCYTES % (AUTO) 1.8 % (2.0-9.0); NEUTROPHILS # (AUTO) 14.7 K/uL (1.8-7.7); PLATELET COUNT (AUTO) 620 K/uL (150-450); RED BLOOD CELL COUNT(AUTO) 3.84 MIL/uL (4.50-5.90); RED CELL DISTRIBUTION WIDTH 14.5 % (11.5-14.5)
[2019-11-07 11:32] LABS: ALANINE AMINOTRANSFERASE 60 U/L (12-78); ALBUMIN 2.6 g/dL (3.4-5.0); ALKALINE PHOSPHATASE 92 U/L (46-116); ASPARTATE AMINOTRANSFERASE 22 U/L (15-37); BILIRUBIN,TOTAL 0.5 mg/dL (0.1-1.0); TOTAL PROTEIN, SERUM 7.4 g/dL (6.4-8.2)
[2019-11-07 11:36] LABS: NEUTROPHILS % (AUTO) 93.8 % (40.0-70.0)
[2019-11-07 11:41] VITALS: BP 134/72
[2019-11-07 16:27] VITALS: BP 136/67
[2019-11-07 19:21] VITALS: BP 110/59
[2019-11-07] MEDS: ACETAMINOPHEN 325 MG TABLET PO PRN (20:18)
[2019-11-08 00:15] VITALS: BP 116/52
[2019-11-08] MEDS: IPRATROPIUM BROMIDE 0.5 MG/2.5 ML NEB SOLUTION NEB SCH ×4 (02:01→19:30)
[2019-11-08] MEDS: ALBUTEROL SULFATE 2.5 MG/0.5 ML NEB SOLUTION NEB SCH ×4 (02:01→19:30)
[2019-11-08] MEDS: PIPERACILLIN/TAZO 3.375 GM/D5W 50 ML IV SCH ×4 (02:08→20:01)
[2019-11-08 05:26] VITALS: BP 126/76
[2019-11-08] MEDS: VANCOMYCIN HCL 1.5 GM in DEXTROSE 5%-WATER 250 ML IV SCH ×3 (06:01→23:02)
[2019-11-08] MEDS: MethylPREDNISolone SOD SUCC 40 MG/ML VIAL IVP SCH ×4 (06:02→23:02)
[2019-11-08 07:08] VITALS: BP 128/69
[2019-11-08 07:20] LABS: EOSINOPHILS % (AUTO) 0 % (1.0-6.0); HEMOGLOBIN 12.2 g/dL (13.5-17.5); LYMPHOCYTES # (AUTO) 0.6 K/uL (1.0-4.8); LYMPHOCYTES % (AUTO) 3.6 % (22.0-44.0); MEAN CORPUSCULAR HEMOGLOBIN 29.8 pg (26.0-34.0); MEAN CORPUSCULAR HGB CONC 33.1 G/dL (31.0-37.0); MEAN CORPUSCULAR VOLUME 90 fL (80-100); MONOCYTES # (AUTO) 0.4 K/uL (0.1-1.0); MONOCYTES % (AUTO) 2.1 % (2.0-9.0); NEUTROPHILS # (AUTO) 16.4 K/uL (1.8-7.7); PLATELET COUNT (AUTO) 701 K/uL (150-450); RED CELL DISTRIBUTION WIDTH 15.1 % (11.5-14.5)
[2019-11-08 07:21] LABS: NEUTROPHILS % (AUTO) 94.3 % (40.0-70.0)
[2019-11-08 07:40] LABS: ALANINE AMINOTRANSFERASE 64 U/L (12-78); ALBUMIN 2.5 g/dL (3.4-5.0); ALKALINE PHOSPHATASE 95 U/L (46-116); ANION GAP 8 mmol/L (8-16); ASPARTATE AMINOTRANSFERASE 20 U/L (15-37); BILIRUBIN,TOTAL 0.6 mg/dL (0.1-1.0); CALCIUM, TOTAL 9.2 mg/dL (8.8-10.5); CARBON DIOXIDE 31 mmol/L (22-29); CHLORIDE 99 mmol/L (98-107); CREATININE 0.99 mg/dL (0.60-1.30); GLOMERULAR FILTR. RATE CALC > 60 mL/min (>60); GLUCOSE,RANDOM 122 mg/dL (70-110); POTASSIUM 4.2 mmol/L (3.5-5.1); SODIUM SERUM 138 mmol/L (136-145); TOTAL PROTEIN, SERUM 7.5 g/dL (6.4-8.2); UREA NITROGEN, BLOOD 20 mg/dL (7-18)
[2019-11-08] MEDS: HEPARIN SODIUM,PORCINE 5,000 UNITS/ML VIAL SQ SCH ×2 (08:56→20:01)
[2019-11-08] MEDS: HYDROCODONE/CHLORPHEN POLIS 10-8 MG/5 ML ORAL.SYG PO SCH ×3 (08:56→23:02)
[2019-11-08] MEDS: BENZONATATE 100 MG CAPSULE PO SCH ×3 (08:57→23:02)
[2019-11-08] MEDS: PANTOPRAZOLE SODIUM 40 MG DR TABLET PO SCH (08:58)
[2019-11-08 11:02] VITALS: BP 112/62
[2019-11-08 15:31] VITALS: BP 111/60
[2019-11-08 20:35] VITALS: BP 113/57
[2019-11-09] VITALS (7 sets, daily range): BP systolic 108–129; BP diastolic 51–83
[2019-11-09] MEDS: PIPERACILLIN/TAZO 3.375 GM/D5W 50 ML IV SCH ×4 (01:54→20:49)
[2019-11-09] MEDS: ALBUTEROL SULFATE 2.5 MG/0.5 ML NEB SOLUTION NEB SCH ×4 (02:20→21:06)
[2019-11-09] MEDS: IPRATROPIUM BROMIDE 0.5 MG/2.5 ML NEB SOLUTION NEB SCH ×4 (02:20→21:06)
[2019-11-09 05:57] LABS: BASOPHILS % (AUTO) 0.1 % (0.0-2.0); EOSINOPHILS % (AUTO) 0 % (1.0-6.0); HEMATOCRIT 37.6 % (41-53); HEMOGLOBIN 12.6 g/dL (13.5-17.5); LYMPHOCYTES # (AUTO) 0.8 K/uL (1.0-4.8); LYMPHOCYTES % (AUTO) 4.3 % (22.0-44.0); MEAN CORPUSCULAR HEMOGLOBIN 30.2 pg (26.0-34.0); MEAN CORPUSCULAR HGB CONC 33.5 G/dL (31.0-37.0); MEAN CORPUSCULAR VOLUME 90 fL (80-100); MONOCYTES # (AUTO) 0.3 K/uL (0.1-1.0); MONOCYTES % (AUTO) 1.8 % (2.0-9.0); PLATELET COUNT (AUTO) 745 K/uL (150-450); RED BLOOD CELL COUNT(AUTO) 4.19 MIL/uL (4.50-5.90); RED CELL DISTRIBUTION WIDTH 14.9 % (11.5-14.5)
[2019-11-09] MEDS: MethylPREDNISolone SOD SUCC 40 MG/ML VIAL IVP SCH ×2 (06:01→12:14)
[2019-11-09] MEDS: VANCOMYCIN HCL 1.5 GM in DEXTROSE 5%-WATER 250 ML IV SCH ×3 (06:01→23:20)
[2019-11-09 06:12] LABS: NEUTROPHILS % (AUTO) 93.8 % (40.0-70.0)
[2019-11-09 06:26] LABS: ALANINE AMINOTRANSFERASE 63 U/L (12-78); ALBUMIN 2.5 g/dL (3.4-5.0); ALKALINE PHOSPHATASE 96 U/L (46-116); ANION GAP 8 mmol/L (8-16); ASPARTATE AMINOTRANSFERASE 19 U/L (15-37); BILIRUBIN,TOTAL 0.6 mg/dL (0.1-1.0); CARBON DIOXIDE 29 mmol/L (22-29); CHLORIDE 98 mmol/L (98-107); CREATININE 1.21 mg/dL (0.60-1.30); GLOMERULAR FILTR. RATE CALC > 60 mL/min (>60); GLUCOSE,RANDOM 153 mg/dL (70-110); POTASSIUM 4.3 mmol/L (3.5-5.1); SODIUM SERUM 135 mmol/L (136-145); TOTAL PROTEIN, SERUM 7.5 g/dL (6.4-8.2); UREA NITROGEN, BLOOD 27 mg/dL (7-18)
[2019-11-09] MEDS: PANTOPRAZOLE SODIUM 40 MG DR TABLET PO SCH (08:18)
[2019-11-09] MEDS: BENZONATATE 100 MG CAPSULE PO SCH ×3 (08:18→23:21)
[2019-11-09] MEDS: HYDROCODONE/CHLORPHEN POLIS 10-8 MG/5 ML ORAL.SYG PO SCH ×3 (08:18→23:21)
[2019-11-09] MEDS: HEPARIN SODIUM,PORCINE 5,000 UNITS/ML VIAL SQ SCH ×2 (08:19→20:50)
[2019-11-09 12:29] LABS: ABG A-A DIFF O2 60.2 mmHg (10-20.0); ABG BASE EXCESS 5.9 mmol/L (-2.0-3.0); ABG CARBOXYHEMOGLOBIN 0.6 % (0.0-3.0); ABG METHEMOGLOBIN 0.3 % (0.0-1.5); ABG OXYHEMOGLOBIN 79.6 % (94.0-100.0); SOURCE, BLOOD GAS ARTERIAL; TEMPERATURE, FAHRENHEIT, BG 98.6 FAHREN (96.0-98.6)
[2019-11-09 12:32] LABS: ABG OXYGEN CONTENT 15.3 mL/dL (15.0-23.0); ABG PCO2 39 mmHg (35-45); ABG TOTAL HEMOGLOBIN 13.7 G/dL (12.0-18.0)
[2019-11-09 12:33] LABS: O2 DEVICE,BLOOD GAS ROOM AIR (ROOM AIR)
[2019-11-09 12:41] LABS: SITE, BLOOD GAS LFT RADIAL
[2019-11-09 12:44] LABS: ABG OXYGEN SATURATION 80.3 % (95.0-98.0); PO2, ARTERIAL BG 42.6 mmHg (80.0-100.0)
[2019-11-09] MEDS ORDERED: SODIUM CHLORIDE 0.9% 250 ML IV ONE (16:03)
[2019-11-09] MEDS: MethylPREDNISolone SOD SUCC 125 MG/2 ML VIAL IVP SCH ×2 (18:08→23:20)
[2019-11-10] MEDS: PIPERACILLIN/TAZO 3.375 GM/D5W 50 ML IV SCH ×4 (02:02→20:26)
[2019-11-10] MEDS: ALBUTEROL SULFATE 2.5 MG/0.5 ML NEB SOLUTION NEB SCH ×4 (02:47→19:41)
[2019-11-10] MEDS: IPRATROPIUM BROMIDE 0.5 MG/2.5 ML NEB SOLUTION NEB SCH ×4 (02:47→19:41)
[2019-11-10 05:14] VITALS: BP 159/93
[2019-11-10] MEDS: VANCOMYCIN HCL 1.5 GM in DEXTROSE 5%-WATER 250 ML IV SCH ×3 (06:29→23:32)
[2019-11-10] MEDS: MethylPREDNISolone SOD SUCC 125 MG/2 ML VIAL IVP SCH ×4 (06:29→23:53)
[2019-11-10 07:09] LABS: EOSINOPHILS % (AUTO) 0 % (1.0-6.0); HEMATOCRIT 37.4 % (41-53); HEMOGLOBIN 12.7 g/dL (13.5-17.5); LYMPHOCYTES # (AUTO) 0.9 K/uL (1.0-4.8); LYMPHOCYTES % (AUTO) 4.7 % (22.0-44.0); MEAN CORPUSCULAR HEMOGLOBIN 30.6 pg (26.0-34.0); MEAN CORPUSCULAR HGB CONC 33.9 G/dL (31.0-37.0); MEAN CORPUSCULAR VOLUME 90 fL (80-100); MONOCYTES # (AUTO) 0.4 K/uL (0.1-1.0); MONOCYTES % (AUTO) 2.1 % (2.0-9.0); NEUTROPHILS # (AUTO) 16.9 K/uL (1.8-7.7); RED BLOOD CELL COUNT(AUTO) 4.14 MIL/uL (4.50-5.90); RED CELL DISTRIBUTION WIDTH 14.8 % (11.5-14.5)
[2019-11-10 07:42] LABS: ALANINE AMINOTRANSFERASE 66 U/L (12-78); ALBUMIN 2.5 g/dL (3.4-5.0); ALKALINE PHOSPHATASE 101 U/L (46-116); ANION GAP 10 mmol/L (8-16); ASPARTATE AMINOTRANSFERASE 17 U/L (15-37); BILIRUBIN,TOTAL 0.5 mg/dL (0.1-1.0); CALCIUM, TOTAL 9.1 mg/dL (8.8-10.5); CARBON DIOXIDE 27 mmol/L (22-29); CHLORIDE 98 mmol/L (98-107); CREATININE 1.14 mg/dL (0.60-1.30); GLOMERULAR FILTR. RATE CALC > 60 mL/min (>60); GLUCOSE,RANDOM 172 mg/dL (70-110); POTASSIUM 4.3 mmol/L (3.5-5.1); SODIUM SERUM 135 mmol/L (136-145); TOTAL PROTEIN, SERUM 7.7 g/dL (6.4-8.2); UREA NITROGEN, BLOOD 28 mg/dL (7-18); VANCOMYCIN,RANDOM 20.2 mcg/mL (25.0-50.0)
[2019-11-10 08:13] LABS: NEUTROPHILS % (AUTO) 93.2 % (40.0-70.0); PLATELET COUNT (AUTO) 769 K/uL (150-450)
[2019-11-10 08:23] VITALS: BP 122/56
[2019-11-10] MEDS: PANTOPRAZOLE SODIUM 40 MG DR TABLET PO SCH (08:34)
[2019-11-10] MEDS: HYDROCODONE/CHLORPHEN POLIS 10-8 MG/5 ML ORAL.SYG PO SCH ×3 (08:34→23:54)
[2019-11-10] MEDS: BENZONATATE 100 MG CAPSULE PO SCH ×3 (08:34→23:53)
[2019-11-10] MEDS: HEPARIN SODIUM,PORCINE 5,000 UNITS/ML VIAL SQ SCH ×2 (08:34→21:31)
[2019-11-10 11:19] VITALS: BP 120/68
[2019-11-10 15:33] VITALS: BP 115/54
[2019-11-10 19:21] VITALS: BP 120/59
[2019-11-10] MEDS ORDERED: SODIUM CHLORIDE 0.9% 500 ML IV ONE (20:23)
[2019-11-10] MEDS: TEMAZEPAM 15 MG CAPSULE PO PRN (23:53)
[2019-11-11] VITALS (7 sets, daily range): BP systolic 107–160; BP diastolic 57–75
[2019-11-11] MEDS: IPRATROPIUM BROMIDE 0.5 MG/2.5 ML NEB SOLUTION NEB SCH ×4 (02:17→19:52)
[2019-11-11] MEDS: ALBUTEROL SULFATE 2.5 MG/0.5 ML NEB SOLUTION NEB SCH ×4 (02:17→19:52)
[2019-11-11] MEDS: PIPERACILLIN/TAZO 3.375 GM/D5W 50 ML IV SCH ×4 (02:27→20:13)
[2019-11-11] MEDS: MethylPREDNISolone SOD SUCC 125 MG/2 ML VIAL IVP SCH ×4 (06:15→23:16)
[2019-11-11] MEDS: VANCOMYCIN HCL 1.5 GM in DEXTROSE 5%-WATER 250 ML IV SCH ×3 (06:16→23:16)
[2019-11-11 06:28] LABS: BASOPHILS % (AUTO) 0.2 % (0.0-2.0); EOSINOPHILS % (AUTO) 0.1 % (1.0-6.0); HEMATOCRIT 40.9 % (41-53); HEMOGLOBIN 13.8 g/dL (13.5-17.5); LYMPHOCYTES # (AUTO) 0.9 K/uL (1.0-4.8); LYMPHOCYTES % (AUTO) 4.1 % (22.0-44.0); MEAN CORPUSCULAR HEMOGLOBIN 30.3 pg (26.0-34.0); MEAN CORPUSCULAR HGB CONC 33.9 G/dL (31.0-37.0); MEAN CORPUSCULAR VOLUME 89 fL (80-100); MONOCYTES # (AUTO) 0.6 K/uL (0.1-1.0); MONOCYTES % (AUTO) 2.5 % (2.0-9.0); NEUTROPHILS # (AUTO) 20.9 K/uL (1.8-7.7); RED BLOOD CELL COUNT(AUTO) 4.57 MIL/uL (4.50-5.90)
[2019-11-11 06:42] LABS: ALANINE AMINOTRANSFERASE 95 U/L (12-78); ALBUMIN 2.6 g/dL (3.4-5.0); ALKALINE PHOSPHATASE 124 U/L (46-116); ANION GAP 9 mmol/L (8-16); ASPARTATE AMINOTRANSFERASE 34 U/L (15-37); BILIRUBIN,TOTAL 0.5 mg/dL (0.1-1.0); CARBON DIOXIDE 27 mmol/L (22-29); CHLORIDE 100 mmol/L (98-107); GLOMERULAR FILTR. RATE CALC > 60 mL/min (>60); GLUCOSE,RANDOM 181 mg/dL (70-110); POTASSIUM 4.3 mmol/L (3.5-5.1); SODIUM SERUM 136 mmol/L (136-145); TOTAL PROTEIN, SERUM 7.9 g/dL (6.4-8.2)
[2019-11-11 07:01] LABS: UREA NITROGEN, BLOOD 33 mg/dL (7-18)
[2019-11-11 07:21] LABS: NEUTROPHILS % (AUTO) 93.1 % (40.0-70.0); PLATELET COUNT (AUTO) 883 K/uL (150-450)
[2019-11-11] MEDS: BENZONATATE 100 MG CAPSULE PO SCH ×3 (09:32→23:17)
[2019-11-11] MEDS: PANTOPRAZOLE SODIUM 40 MG DR TABLET PO SCH (09:32)
[2019-11-11] MEDS: HEPARIN SODIUM,PORCINE 5,000 UNITS/ML VIAL SQ SCH ×2 (09:33→20:14)
[2019-11-11] MEDS: HYDROCODONE/CHLORPHEN POLIS 10-8 MG/5 ML ORAL.SYG PO SCH ×3 (09:33→23:17)
[2019-11-12 00:22] VITALS: BP 124/62
[2019-11-12] MEDS: PIPERACILLIN/TAZO 3.375 GM/D5W 50 ML IV SCH ×3 (01:46→14:56)
[2019-11-12] MEDS: IPRATROPIUM BROMIDE 0.5 MG/2.5 ML NEB SOLUTION NEB SCH ×3 (02:16→13:49)
[2019-11-12] MEDS: ALBUTEROL SULFATE 2.5 MG/0.5 ML NEB SOLUTION NEB SCH ×3 (02:16→13:49)
[2019-11-12 03:29] VITALS: BP 126/48
[2019-11-12] MEDS: MethylPREDNISolone SOD SUCC 125 MG/2 ML VIAL IVP SCH ×2 (06:02→12:06)
[2019-11-12] MEDS: VANCOMYCIN HCL 1.5 GM in DEXTROSE 5%-WATER 250 ML IV SCH ×2 (06:02→15:59)
[2019-11-12 06:55] LABS: HEMATOCRIT 38.5 % (41-53); MEAN CORPUSCULAR HEMOGLOBIN 30.5 pg (26.0-34.0); MEAN CORPUSCULAR HGB CONC 33.6 G/dL (31.0-37.0); MEAN CORPUSCULAR VOLUME 91 fL (80-100); PLATELET COUNT (AUTO) 748 K/uL (150-450); RED BLOOD CELL COUNT(AUTO) 4.25 MIL/uL (4.50-5.90); RED CELL DISTRIBUTION WIDTH 14.9 % (11.5-14.5)
[2019-11-12 07:16] LABS: ALANINE AMINOTRANSFERASE 70 U/L (12-78); ALBUMIN 2.4 g/dL (3.4-5.0); ALKALINE PHOSPHATASE 99 U/L (46-116); ANION GAP 7 mmol/L (8-16); ASPARTATE AMINOTRANSFERASE 13 U/L (15-37); BILIRUBIN,TOTAL 0.4 mg/dL (0.1-1.0); CALCIUM, TOTAL 9.4 mg/dL (8.8-10.5); CARBON DIOXIDE 28 mmol/L (22-29); CHLORIDE 102 mmol/L (98-107); CREATININE 1.11 mg/dL (0.60-1.30); GLOMERULAR FILTR. RATE CALC > 60 mL/min (>60); GLUCOSE,RANDOM 237 mg/dL (70-110); POTASSIUM 4.2 mmol/L (3.5-5.1); SODIUM SERUM 137 mmol/L (136-145); TOTAL PROTEIN, SERUM 6.9 g/dL (6.4-8.2); UREA NITROGEN, BLOOD 31 mg/dL (7-18)
[2019-11-12 08:34] VITALS: BP 140/62
[2019-11-12 08:34] LABS: BAND NEUTROPHILS % (MANUAL) 9 % (0-5); LYMPHOCYTES % (MANUAL) 4 % (22-44); METAMYELOCYTES % 1 % (0-0); MONOCYTES % (MANUAL) 1 % (2-9); SEGMENTED NEUTROPHILS % 85 % (40-70)
[2019-11-12] MEDS: HEPARIN SODIUM,PORCINE 5,000 UNITS/ML VIAL SQ SCH (08:47)
[2019-11-12] MEDS: PANTOPRAZOLE SODIUM 40 MG DR TABLET PO SCH (08:47)
[2019-11-12] MEDS: BENZONATATE 100 MG CAPSULE PO SCH ×2 (08:47→16:13)
[2019-11-12] MEDS: HYDROCODONE/CHLORPHEN POLIS 10-8 MG/5 ML ORAL.SYG PO SCH ×2 (08:47→16:13)
[2019-11-12] MEDS ORDERED: AMOX1TAB16 PO (10:24)
[2019-11-12] MEDS ORDERED: BENZ-17 PO (10:29)
[2019-11-12] MEDS ORDERED: BUDE10.2 IH (10:29)
[2019-11-12] MEDS ORDERED: DOXY100C PO (10:30)
[2019-11-12] MEDS ORDERED: GUAI-966 PO (10:35)
[2019-11-12 11:40] VITALS: BP 125/58
[2019-11-12 17:00] VITALS: BP 132/76
== END 2019-11-12 17:25 | disposition home or self-care (01) | DRG 720 ==
LOC: EMS 06:28 → 5S 09:58
PROVIDERS: ADMIT Internal Medicine; ATTEND Internal Medicine
PROC: 5A09357 Assistance with Respiratory Ventilation, Less than 24 Consecutive Hours, Continuous Positive Airway Pressure (ICD-10-PCS; principal; 2019-11-03)
PROC: 5A09357 Assistance with Respiratory Ventilation, Less than 24 Consecutive Hours, Continuous Positive Airway Pressure (ICD-10-PCS; 2019-11-04)
PROC: 5A09357 Assistance with Respiratory Ventilation, Less than 24 Consecutive Hours, Continuous Positive Airway Pressure (ICD-10-PCS; 2019-11-09)
PROC: 5A09357 Assistance with Respiratory Ventilation, Less than 24 Consecutive Hours, Continuous Positive Airway Pressure (ICD-10-PCS; 2019-11-10)
PROC: 5A09357 Assistance with Respiratory Ventilation, Less than 24 Consecutive Hours, Continuous Positive Airway Pressure (ICD-10-PCS; 2019-11-11)
PROC: 5A09357 Assistance with Respiratory Ventilation, Less than 24 Consecutive Hours, Continuous Positive Airway Pressure (ICD-10-PCS; 2019-11-12)
DX: A41.9 Sepsis, unspecified organism (principal); J96.21 Acute and chronic respiratory failure with hypoxia; J18.9 Pneumonia, unspecified organism; E44.0 Moderate protein-calorie malnutrition; E11.9 Type 2 diabetes mellitus without complications; E66.01 Morbid (severe) obesity due to excess calories; F12.90 Cannabis use, unspecified, uncomplicated; F32.9 Major depressive disorder, single episode, unspecified; F41.9 Anxiety disorder, unspecified; E87.6 Hypokalemia; E78.00 Pure hypercholesterolemia, unspecified; G43.909 Migraine, unspecified, not intractable, without status migrainosus; R65.20 Severe sepsis without septic shock; E78.5 Hyperlipidemia, unspecified; Z68.41 Body mass index [BMI] 40.0-44.9, adult; Z79.899 Other long term (current) drug therapy; Z80.8 Family history of malignant neoplasm of other organs or systems
CPT/HCPCS: 36600; 71275; 82805; 83036; 83605; 84145; 86738; 87040; 87070; 87081; 87205; 87804; 93005; 93306; 94640; 94660; G0238; J0131; J1644; J2405; J2543; J2920; J2930; J3370; J7030; J7040; J7050; J7060